=== PATIENT | male | born 1935 | race Caucasian/White ===

== ENCOUNTER → 2016-05-23 | Outpatient (CLI) | payer MEDICARE ==
[2016-05-23 13:44] LABS: HEMATOCRIT 42.6 % (37.9-51.0); HEMOGLOBIN 14.3 g/dL (13.5-17.0); HGB HCT DIFFERENCE 0.3; MEAN CORPUSCULAR HEMOGLOBIN 31.7 pg (27.0-33.4); MEAN CORPUSCULAR HGB CONC 33.6 g/dL (32.0-36.0); MEAN CORPUSCULAR VOLUME 94 fl (80-97); RED BLOOD COUNT 4.52 10^6/uL (4.35-5.55); RED CELL DISTRIBUTION WIDTH 14.1 % (11.5-14.0); WHITE BLOOD COUNT 7.1 10^3/uL (4.0-10.5)
[2016-05-23 14:03] LABS: ANION GAP 13 (5-19); BLOOD UREA NITROGEN 24 mg/dL (7-20); CALCIUM 9.7 mg/dL (8.4-10.2); CARBON DIOXIDE 24 mmol/L (22-30); CHLORIDE 103 mmol/L (98-107); GLUCOSE 138 mg/dL (75-110); SODIUM 140.1 mmol/L (137-145)
--- NOTE | 2016-05-23 16:56 | EKG REPORT ---
SEVERITY:- NORMAL ECG - SINUS RHYTHM : Confirmed by: Niurka Zuniga MD 23-May-2016 16:55:58
[2016-05-26 08:48] LABS: APPEARANCE,URINE CLEAR; BILIRUBIN,URINE NEGATIVE (NEGATIVE); GLUCOSE, URINE NEGATIVE (NEGATIVE); KETONES,URINE NEGATIVE (NEGATIVE); LEUKOCYTE ESTERASE,URINE NEGATIVE (NEGATIVE); NITRITE,URINE NEGATIVE (NEGATIVE); PROTEIN,URINE NEGATIVE (NEGATIVE); URINE SPECIFIC GRAVITY 1.009; UROBILINOGEN,URINE NEGATIVE mg/dL (<2.0)
== END ==
LOC: OD 12:48
PROVIDERS: ATTEND Orthopaedic Surgery
DX: Z01.810 Encounter for preprocedural cardiovascular examination (principal); Z01.811 Encounter for preprocedural respiratory examination; Z01.818 Encounter for other preprocedural examination; Z79.899 Other long term (current) drug therapy; M17.12 Unilateral primary osteoarthritis, left knee
CPT/HCPCS: 36415; 71020; 80048; 81001; 85027; 93005; 93010

== ENCOUNTER 2017-11-07 11:54 | Inpatient (IN) | payer OTHER, MEDICARE ==
[2017-11-07 12:15] LABS: ABSOLUTE LYMPHOCYTES (AUTO) 0.5 10^3/uL (0.5-4.7); ABSOLUTE MONOCYTES (AUTO) 0.8 10^3/uL (0.1-1.4); ABSOLUTE NEUT (AUTO) 7.9 10^3/uL (1.7-8.2); BASOPHILS % (AUTO) 0.3 % (0-2); EOSINOPHILS % (AUTO) 0.2 % (0-6); HEMOGLOBIN 13.3 g/dL (13.5-17.0); LYMPHOCYTES % (AUTO) 5.6 % (13-45); MEAN CORPUSCULAR HGB CONC 33.3 g/dL (32.0-36.0); MEAN CORPUSCULAR VOLUME 96 fl (80-97); PLATELET COUNT 156 10^3/uL (150-450); RED BLOOD COUNT 4.16 10^6/uL (4.35-5.55); RED CELL DISTRIBUTION WIDTH 14.6 % (11.5-14.0); SEGMENTED NEUTROPHILS % (AUTO) 84.9 % (42-78); TOTAL CELLS COUNTED % (AUTO) 100 %; WHITE BLOOD COUNT 9.4 10^3/uL (4.0-10.5)
--- NOTE | 2017-11-07 12:20 | EKG REPORT ---
SEVERITY:- OTHERWISE NORMAL ECG - SINUS RHYTHM ATRIAL PREMATURE COMPLEX : Confirmed by: Niurka Zuniga MD 07-Nov-2017 12:19:30
[2017-11-07 12:56] LABS: TROPONIN I 0.163 ng/mL
[2017-11-07 13:22] LABS: VENOUS BLOOD BASE EXCESS 0.8 mmol/L; VENOUS BLOOD HCO3 25.2 mmol/L (20-32); VENOUS BLOOD PCO2 39.7 mmHg (35-63); VENOUS BLOOD PH 7.42 (7.30-7.42)
[2017-11-07 13:35] LABS: ALANINE AMINOTRANSFERASE 26 U/L (21-72); ALBUMIN 3.4 g/dL (3.5-5.0); ALKALINE PHOSPHATASE 36 U/L (38-126); ANION GAP 11 (5-19); ASPARTATE AMINO TRANSFERASE 27 U/L (17-59); BILIRUBIN,DIRECT 0.3 mg/dL (0.0-0.4); BILIRUBIN,TOTAL 1.1 mg/dL (0.2-1.3); BLOOD UREA NITROGEN 18 mg/dL (7-20); CALCIUM 8.8 mg/dL (8.4-10.2); CARBON DIOXIDE 24 mmol/L (22-30); CHLORIDE 110 mmol/L (98-107); GLUCOSE 137 mg/dL (75-110); POTASSIUM 3.8 mmol/L (3.6-5.0); SODIUM 144.9 mmol/L (137-145); TOTAL PROTEIN 6.3 g/dL (6.3-8.2)
--- NOTE | 2017-11-07 13:38 | RADIOLOGY REPORT (SQ) ---
EXAM DESCRIPTION: CHEST SINGLE VIEW COMPLETED DATE/TIME: 11/07/2017 1:27 pm REASON FOR STUDY: S OB, Hx asbestosis COMPARISON: 05/23/2016 NUMBER OF VIEWS: One view. TECHNIQUE: Single frontal radiographic view of the chest acquired. LIMITATIONS: None. FINDINGS: LUNGS AND PLEURA: Calcified pleural plaques. No pleural effusion. Attenuated blood vessels and flattened krysta-diaphragms. MEDIASTINUM AND HILAR STRUCTURES: No masses. Contour normal. HEART AND VASCULAR STRUCTURES: Heart normal in size. Normal vasculature. BONES: No acute findings. HARDWARE: None in the chest. OTHER: No other significant finding. IMPRESSION: COPD. NO ACUTE RADIOGRAPHIC FINDING IN THE CHEST. TECHNICAL DOCUMENTATION: JOB ID: [id number] [employer]- All Rights Reserved Reading location - IP/workstation name: [email or web address]
--- NOTE | 2017-11-07 16:51 | ER Document Report ---
ED General - General Chief Complaint: Shortness Of Breath Stated Complaint: SHORTNESS OF BREATH Time Seen by Provider: 11/07/17 12:27 Notes: Patient says that he is having shortness of breath and feeling like he cannot breathe starting yesterday and lasting through the night last night. He has had a slight cough. Is not producing any significant phlegm. Has not had any fever. Patient has a history of asbestosis and is followed at the [facility] for this condition. He is on handheld inhalers but he is not on any home oxygen. Denies any chest pains. Has never had any heart disease other than being told that he has a heart murmur. 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 TRAVEL OUTSIDE OF THE [place] IN LAST 30 DAYS: No - Related Data Allergies/Adverse Reactions: Penicillins Allergy (Verified 11/06/11 12:11) pravastatin [Pravastatin] Allergy (Verified 11/06/11 17:35) Past Medical History - Social History Smoking Status: Unknown if Ever Smoked Family History: Reviewed & Not Pertinent Patient has suicidal ideation: No Patient has homicidal ideation: No - Past Medical History Cardiac Medical History: Reports: Hx Hypercholesterolemia, Hx Hypertension Pulmonary Medical History: Reports: Hx Asthma, Other - Asbestosis Denies: Hx COPD, Hx Tuberculosis Endocrine Medical History: Denies: Hx Diabetes Mellitus Type 1, Hx Diabetes Mellitus Type 2 Musculoskeletal Medical History: Reports Hx Arthritis Psychiatric Medical History: Denies: Hx Anxiety Past Surgical History: Denies: Hx Pacemaker - Immunizations Hx Pneumococcal Vaccination: 11/28/10 Review of Systems - Review of Systems Notes: REVIEW OF SYSTEMS: CONSTITUTIONAL : Denies fever. Vital signs are all normal. Anxious. EENT: Denies eye, ear, nose or mouth or throat pain or other symptoms. CARDIOVASCULAR: Denies chest pain. No thoracic pain anywhere. RESPIRATORY: See HPI. GASTROINTESTINAL: Denies abdominal pain or nausea, vomiting, or diarrhea. GENITOURINARY: Denies difficulty or painful urinating, urinary frequency, blood in urine. MUSCULOSKELETAL: Denies back or neck pain. Denies joint pain or swelling. SKIN: Denies rash or skin lesions. NEUROLOGICAL: Denies LOC or altered mental status. Denies headache. Denies sensory loss or motor deficits. ALL OTHER SYSTEMS REVIEWED AND NEGATIVE. Physical Exam - Vital signs Vitals: Resp Pulse Ox 19 98 11/07/17 12:00 11/07/17 12:00 Interpretation: Normal. No: Hypoxic, Tachypneic - Notes Notes: PHYSICAL EXAMINATION: GENERAL: Well-appearing, in no acute distress. Anxious. O2 sat on room air is 95%. HEAD: Atraumatic, normocephalic. EYES: Pupils equal round and reactive to light, extraocular movements intact. ENT: oropharynx clear without exudates. Moist mucous membranes. NECK: Normal range of motion, supple. LUNGS: Breath sounds clear and equal bilaterally. No significant wheezes. Good air exchange. HEART: Regular rate and rhythm without murmurs. No chest wall tenderness. ABDOMEN: Soft, nontender. No guarding or rebound. No masses. BACK: No tenderness throughout entire back. EXTREMITIES: Normal range of motion without pain. No swelling of either lower leg. Negative Homans bilaterally. NEUROLOGICAL: Normal speech, normal gait. Normal sensory, motor, and reflex exams. Awake, alert, and oriented x3. Cranial nerves normal. PSYCH: Anxious. SKIN: Warm, dry, no rashes. Course - Re-evaluation Re-evalutation: 11/07/17 18:48 Patient's first troponin was minimally elevated at 0.16, and I repeated this in about 3 hours and it was slightly more increased, at 0.723. Discussed the case with the hospitalist on and also with Dr. Zuniga, asphalt surface heater operator on, and Dr. Goldstein recommended a CTA. He felt the patient could be observed here. CTA shows small bilateral basilar pleural effusions and some calcifications of the pleura bilaterally. 11/07/17 19:59 Discussed with hospitalist process improvement consultant for the night who agreed to admit the patient for observation to telemetry. - Vital Signs Vital signs: Temp Pulse Resp BP Pulse Ox 97.9 F 103 H 26 H 127/97 H 96 11/07/17 12:07 11/07/17 12:07 11/07/17 19:01 11/07/17 19:01 11/07/17 19:01 - Laboratory Result Diagrams: 11/07/17 11:22 11/07/17 11:22 Laboratory results interpreted by me: 11/07/17 11/07/17 11/07/17 11:22 11:22 11:22 RBC 4.16 L Hgb 13.3 L RDW 14.6 H Seg Neutrophils % 84.9 H Lymphocytes % 5.6 L Chloride 110 H Glucose 137 H Alkaline Phosphatase 36 L NT-Pro-B Natriuret Pep 2850 H Albumin 3.4 L - Diagnostic Test Radiology results interpreted by me: 11/07/17 18:50 No acute findings on chest x-ray. - EKG Interpretation by Me EKG shows normal: Sinus rhythm Rate: Normal Rhythm: NSR, APC's Discharge - Discharge Clinical Impression: Pulmonary asbestosis, Dyspnea, Elevated troponin, Pleural effusion Condition: Stable Disposition: ADMITTED OBSERVATION Admitting Provider: Hospitalist Unit Admitted: Telemetry Referrals: YISEL HOLLINGSWORTH MD [Primary Care Provider] - Follow up as needed
--- NOTE | 2017-11-07 19:03 | RADIOLOGY REPORT (SQ) ---
EXAM DESCRIPTION: CTA CHEST COMPLETED DATE/TIME: 11/07/2017 6:24 pm REASON FOR STUDY: Difficulty breathing,shortness of breath, Hx Dvt COMPARISON: CT angiogram chest 11/09/2011. Chest x-ray 11/07/2017. TECHNIQUE: CT scan of the chest performed using helical scanning technique with dynamic intravenous contrast injection. Images reviewed with lung, soft tissue and bone windows. Reconstructed coronal and sagittal MPR images reviewed. Additional 3 dimensional post-processing performed to develop Maximal Intensity Projection images (NE P). All images stored on PACS. All CT scanners at this facility use dose modulation, iterative reconstruction, and/or weight based d osing when appropriate to reduce radiation dose to as low as reasonably achievable (ALARA). [facility]: Dose Right [facility]: CareDose [facility]: Dose Right [facility]: Teradose 4D [facility]: [employer] CONTRAST TYPE AND DOSE: contrast/concentration: Isovue 350.00 mg/ml; Total Contrast Delivered: 75.0 ml; Total Saline Delivered: 80.0 ml Contrast bolus optimized for the pulmonary arteries. Not diagnostic for the aorta. RENAL FUNCTION: Creatinine 0.89 RADIATION DOSE: CT Rad equipment meets quality standard of care and radiation dose reduction techniq ues were employed. CTDIvol: 15.7 - 16.5 mGy. DLP: 581 mGy-cm. . LIMITATIONS: None. FINDINGS: LUNGS AND PLEURA: There are small bilateral pleural effusions with mild bibasilar atelecta sis. There is bilateral calcified pleural plaque. No pneumothorax. AORTA AND GREAT VESSELS: No thoracic aortic aneurysm. Contrast bolus not optimized for the aorta. HEART: No pericardial effusion. Moderate to marked coronary artery calcifications. PULMONARY ARTERIES: No emboli visualized in the main pulmonary arteries or the segmental branches. HILAR AND MEDIASTINAL STRUCTURES: No identified masses or abnormal nodes. HARDWARE: None in the chest. UPPER ABDOMEN: No significant findings. Limited exam. THYROID AND OTHER SOFT TISSUES: The visualized thyroid gland is unremarkable. BONES: Multilevel degenerative changes at the spine. 3D MIPS: Confirm above findings. IMPRESSION: 1. No pulmonary emboli. 2. Small bilateral pleural effusions with mild bibasilar atelectasis. Bilateral pleural calcificatio ns. 3. Coronary arteries calcifications. COMMENT: Quality ID # [id number]: Final reports with documentation of one or more dose reduction techniques (e.g., Automated exposure control, adjustment of the mA and/or kV according to patient size, use of iterative reconstruction technique) TECHNICAL DOCUMENTATION: JOB ID: [id number] [employer]- All Rights Reserved Reading location - IP/workstation name: [email or web address]
[2017-11-07] MEDS ORDERED: FUROSEMIDE INJ/PF 40 MG/4 ML SDV IV ONE (19:58)
[2017-11-07] MEDS ORDERED: IPRATROPIUM/ALBUTEROL 0.5-2.5 MG/3 ML AMPUL NEB ONE (20:36)
--- NOTE | 2017-11-07 21:09 | EKG REPORT ---
SEVERITY:- BORDERLINE ECG - SINUS RHYTHM ATRIAL PREMATURE COMPLEX BORDERLINE T ABNORMALITIES, INFERIOR LEADS : Confirmed by: Niurka Zuniga MD 07-Nov-2017 21:08:47
[2017-11-07] MEDS ORDERED: IPRATROPIUM/ALBUTEROL 0.5-2.5 MG/3 ML AMPUL NEB PRN (23:43)
[2017-11-07] MEDS ORDERED: ENOXAPARIN SODIUM INJ 80 MG/0.8 ML DISP.SYRIN SUBCUT ONE (23:45)
[2017-11-08] MEDS: METHYLPREDNISOLONE INJ 40 MG/1 ML SDV IV SCH ×3 (01:13→17:16)
--- NOTE | 2017-11-08 01:37 | PDOC H&P ---
History of Present Illness Admission Date/PCP: 11/07/17 20:16 YISEL HOLLINGSWORTH MD Patient complains of: SOB History of Present Illness: TERESA MUNOZ is a 81 year old male entering to the emergency department secondary to shortness of breath. Patient has a known past medical history of asbestosis with chronic emphysema for which she follows with a software controls engineer in [place], last seen 2 months ago. States he has been having increased worsening of his shortness of breath over the past 2 days and has been needing to use his inhaler more frequently than usual. States he feels better with rest. Denies worsening of shortness of breath when lying flat. Denies history of smoking. He becomes dyspneic with minimal exertion. Chest pain, denies palpitations. Past Medical History Cardiac Medical History: Reports: DVT, Hyperlipidema, Hypertension Pulmonary Medical History: Reports: Asthma, Other - Asbestosis Denies: Chronic Obstructive Pulmonary Disease (COPD), Tuberculosis Pulmonary History Note: Emphysema from hx of asbestosis Endocrine Medical History: Denies: Diabetes Mellitus Type 1, Diabetes Mellitus Type 2 Musculoskeltal Medical History: Reports: Arthritis Psychiatric Medical History: Denies: Depression Past Surgical History Past Surgical History: Denies: Pacemaker Social History Smoking Status: Never Smoker Frequency of Alcohol Use: None Hx Recreational Drug Use: No Hx Prescription Drug Abuse: No - Advance Directive Resuscitation Status: Full Code Family History Family History: Reviewed & Not Pertinent Parental Family History Reviewed: Yes Children Family History Reviewed: Yes Sibling(s) Family History Reviewed.: Yes Medication/Allergy Home Medications: Lisinopril [Prinivil 40 mg Tablet] 40 mg PO DAILY 11/06/11 Docusate Sodium [Colace 100 mg Capsule] 100 mg PO BID 11/07/11 Enoxaparin Sodium [Lovenox Inj 100 Mg/1 Ml Disp.Syrin] 85 mg SUBCUT Q12 Warfarin Sodium [Coumadin] 10 mg PO QHS 11/07/11 Allergies/Adverse Reactions: Penicillins Allergy (Verified 11/06/11 12:11) pravastatin [Pravastatin] Allergy (Verified 11/06/11 17:35) Review of Systems Constitutional: ABSENT: chills, fever(s), weakness Cardiovascular: PRESENT: dyspnea on exertion. ABSENT: chest pain, edema, palpitations Respiratory: PRESENT: dyspnea. ABSENT: cough, hemoptysis, sputum Gastrointestinal: ABSENT: abdominal pain, nausea, vomiting Physical Exam Vital Signs: Temp Pulse Resp BP Pulse Ox 98.8 F 89 20 134/78 H 97 11/07/17 23:10 11/07/17 23:10 11/07/17 23:10 11/07/17 23:10 11/08/17 00:05 Pulse Oximeter Continuous Start: 11/07/17 19: 59 Freq: RTQ4 Status: Active Document 11/08/17 00:05 EST (Rec: 11/08/17 00:06 EST [email or web address]) Pulse Oximetry Assessment Oxygen Saturation (92-100) 97 Oxygen Flow Rate (L/min) 2 Oxygen Delivery Method Nasal Cannula Fraction of Inspired Oxygen (FIO2) 28 Equipment Usage Initial Set Up Continuous Pulse Oximeter 24 Hour Charge Charge Now Continuous SpO2 Machine # 11 General appearance: PRESENT: mild distress Head exam: PRESENT: atraumatic Eye exam: PRESENT: conjunctiva pink, EOMI, PERRLA Ear exam: PRESENT: normal external ear exam Mouth exam: PRESENT: moist, neck supple, tongue midline Neck exam: PRESENT: full ROM Respiratory exam: PRESENT: decreased breath sounds, tachypnea, wheezes Cardiovascular exam: PRESENT: systolic murmur GI/Abdominal exam: PRESENT: normal bowel sounds, soft. ABSENT: distended, tenderness Rectal exam: PRESENT: deferred Neurological exam: PRESENT: alert, oriented to person, oriented to place, oriented to time, CN II-XII grossly intact, normal gait Psychiatric exam: PRESENT: anxious. ABSENT: suicidal ideation Skin exam: PRESENT: normal color Results Laboratory Results: 11/07/17 22:10 Troponin I 1.580 Impressions: Chest X-Ray 11/07/17 12:28 IMPRESSION: COPD. NO ACUTE RADIOGRAPHIC FINDING IN THE CHEST. Chest/Abdomen CTA 11/07/17 17:14 IMPRESSION: 1. No pulmonary emboli. 2. Small bilateral pleural effusions with mild bibasilar atelectasis. Bilateral pleural calcifications. 3. Coronary arteries calcifications. Assessment & Plan - Diagnosis (1) Dyspnea Qualifiers: Dyspnea type: dyspnea on exertion Qualified Code(s): R06.09 - Other forms of dyspnea Is this a current diagnosis for this admission?: Yes Plan: Patient to be admitted to med/tele for further monitoring. Continuous pulse ox. Solumedrol 40mg IV q6h to be started overnight. Duonebs q4h PRN. Maintain oxygen saturation > 92% (2) Elevated troponin Is this a current diagnosis for this admission?: Yes Plan: Patient denies chest pain. EKG without acute ischemic changes. Will continue to monitor closely with telemetry. Cardiology consultation pending for this am. Will continue to trend q6h x 3 or until wnl. Lovenox 1mg/kg BID started at this time. (3) Pleural effusion Is this a current diagnosis for this admission?: Yes Plan: Acute, bilateral as noted on CTA chest. Patient started on lasix 40mg IV BID at this time. Will continue to monitor I/O's closely. probably CHF exa associated with underlying effusions. BNP 2800+. (4) Pulmonary asbestosis Is this a current diagnosis for this admission?: Yes Plan: continue to maintain O2 sats greater than 92%. Duonebs q4h prn.
[2017-11-08] MEDS: FUROSEMIDE INJ/PF 40 MG/4 ML SDV IV SCH ×2 (05:21→17:16)
[2017-11-08 05:26] LABS: ABSOLUTE LYMPHOCYTES (AUTO) 0.4 10^3/uL (0.5-4.7); ABSOLUTE MONOCYTES (AUTO) 0.3 10^3/uL (0.1-1.4); BASOPHILS % (AUTO) 0.2 % (0-2); EOSINOPHILS % (AUTO) 0.5 % (0-6); HEMATOCRIT 38.1 % (37.9-51.0); HEMOGLOBIN 12.9 g/dL (13.5-17.0); LYMPHOCYTES % (AUTO) 5.5 % (13-45); MEAN CORPUSCULAR HEMOGLOBIN 32.1 pg (27.0-33.4); MEAN CORPUSCULAR HGB CONC 33.9 g/dL (32.0-36.0); MEAN CORPUSCULAR VOLUME 95 fl (80-97); MONOCYTES % (AUTO) 4.2 % (3-13); PLATELET COUNT 135 10^3/uL (150-450); RED BLOOD COUNT 4.02 10^6/uL (4.35-5.55); RED CELL DISTRIBUTION WIDTH 14.2 % (11.5-14.0); SEGMENTED NEUTROPHILS % (AUTO) 89.6 % (42-78); TOTAL CELLS COUNTED % (AUTO) 100 %; WHITE BLOOD COUNT 7.8 10^3/uL (4.0-10.5)
[2017-11-08 06:06] LABS: ANION GAP 12 (5-19); BLOOD UREA NITROGEN 15 mg/dL (7-20); CALCIUM 9.3 mg/dL (8.4-10.2); CARBON DIOXIDE 28 mmol/L (22-30); CHLORIDE 104 mmol/L (98-107); GLUCOSE 118 mg/dL (75-110); SODIUM 144.1 mmol/L (137-145)
[2017-11-08] MEDS: ASPIRIN 81 MG TABLET, ENT COATED PO SCH (09:11)
[2017-11-08] MEDS ORDERED: ENOXAPARIN SODIUM INJ 40 MG/0.4 ML DISP.SYRIN SUBCUT SCH (10:00)
--- NOTE | 2017-11-08 13:59 | PDOC PROGRESS REPORT ---
Subjective Progress Note for:: 11/08/17 Subjective:: This patient presents emergency room with complaints of shortness of breath and difficulty breathing. He has a known history of asbestosis with chronic emphysema. He states he feels better this morning and is been up and around with some dyspnea but currently off oxygen when I saw him. He denies any chest pain although he was found to have an elevated troponin. Reason For Visit: HEART FAILURE, ELEVATED TROPONIN Physical Exam Vital Signs: Temp Pulse Resp BP Pulse Ox 97.6 F 73 18 122/81 94 11/08/17 07:31 11/08/17 08:10 11/08/17 08:10 11/08/17 07:31 11/08/17 11:49 Pulse Oximeter Continuous Start: 11/07/17 19: 59 Freq: RTQ4 Status: Active Document 11/08/17 11:49 HCR (Rec: 11/08/17 11:49 HCR [id number]) Pulse Oximetry Assessment Oxygen Saturation (92-100) 94 Oxygen Delivery Method Room Air Fraction of Inspired Oxygen (FIO2) 21 Equipment Usage Equipment in Use Continuous SpO2 Machine # 11 Intake & Output 11/07/17 11/08/17 11/09/17 06:59 06:59 06:59 Intake Total 674 Output Total 1275 1100 Balance -1275 -426 Weight 73.7 kg General appearance: PRESENT: no acute distress, well-nourished Head exam: PRESENT: normocephalic Eye exam: PRESENT: conjunctiva pink, EOMI, PERRLA. ABSENT: scleral icterus Mouth exam: PRESENT: moist, tongue midline Neck exam: ABSENT: carotid bruit, JVD, lymphadenopathy, thyromegaly Respiratory exam: PRESENT: decreased breath sounds. ABSENT: rales, rhonchi, wheezes Cardiovascular exam: PRESENT: RRR. ABSENT: diastolic murmur, rubs, systolic murmur Pulses: PRESENT: normal dorsalis pedis pul Vascular exam: PRESENT: normal capillary refill GI/Abdominal exam: PRESENT: normal bowel sounds, soft. ABSENT: distended, guarding, mass, organolmegaly, rebound, tenderness Rectal exam: PRESENT: deferred Extremities exam: PRESENT: full ROM. ABSENT: calf tenderness, clubbing, pedal edema Neurological exam: PRESENT: alert, awake, oriented to person, oriented to place , oriented to time, oriented to situation, CN II-XII grossly intact. ABSENT: motor sensory deficit Psychiatric exam: PRESENT: appropriate affect, normal mood. ABSENT: homicidal ideation, suicidal ideation Skin exam: PRESENT: dry, intact, warm. ABSENT: cyanosis, rash Results Laboratory Results: 11/08/17 04:29 11/08/17 04:29 11/08/17 11/08/17 11/08/17 04:29 04:29 09:59 WBC 7.8 RBC 4.02 L Hgb 12.9 L Hct 38.1 MCV 95 MCH 32.1 MCHC 33.9 RDW 14.2 H Plt Count 135 L Seg Neutrophils % 89.6 H Lymphocytes % 5.5 L Monocytes % 4.2 Eosinophils % 0.5 Basophils % 0.2 Absolute Neutrophils 7.0 Absolute Lymphocytes 0.4 L Absolute Monocytes 0.3 Absolute Eosinophils 0.0 Absolute Basophils 0.0 Sodium 144.1 Potassium 4.0 Chloride 104 Carbon Dioxide 28 Anion Gap 12 BUN 15 Creatinine 0.92 Est GFR ( Amer) > 60 Est GFR (Non-Af Amer) > 60 Glucose 118 H Calcium 9.3 Magnesium 2.0 C-Reactive Protein 38.8 H 11/07/17 11/08/17 11/08/17 22:10 04:29 09:59 Troponin I 1.580 1.940 1.350 Impressions: Chest X-Ray 11/07/17 12:28 IMPRESSION: COPD. NO ACUTE RADIOGRAPHIC FINDING IN THE CHEST. Chest/Abdomen CTA 11/07/17 17:14 IMPRESSION: 1. No pulmonary emboli. 2. Small bilateral pleural effusions with mild bibasilar atelectasis. Bilateral pleural calcifications. 3. Coronary arteries calcifications. Assessment & Plan - Time Time Spent with patient: 15-24 minutes Medications reviewed and adjusted accordingly: Yes Anticipated discharge: Home Within: within 72 hours - Inpatient Certification Based on my medical assessment, after consideration of the patient's comorbidities, presenting symptoms, or acuity I expect that the services needed warrant INPATIENT care.: Yes Medical Necessity: Need for Nebulizer Therapy and Monitoring of Response, Risk of Complication if Not Cared For in Hospital - Plan Summary Plan Summary: Acute hypoxemic respiratory failure probably multifactorial including underlying chronic lung disease, and pleural effusion. Patient is currently on Solu-Medrol as well as bronchodilators. 2. Elevated troponin cardiology consultation has been requested 3. Pleural effusion, bilateral questionable etiology. Will follow up on echocardiogram. Patient may need thoracentesis however the small bilateral pleural effusions may just respond to Lasix 4. Chronic lung disease with pulmonary asbestosis
--- NOTE | 2017-11-08 15:49 | XCELERA REPORT ---
[address] [address] Transthoracic Echocardiogram Report Name: TERESA MUNOZ Age: 81 yrs Gender: Male : 1935 Patient Status: Inpatient Patient Location: [address] [place], [place] [address] Study Date: 11/08/2017 01:41 PM Height: 65 in Weight: 162 lb BSA: 1.8 m2 Procedure: A two-dimensional transthoracic echocardiogram with color flow Doppler was performed. The study was technically difficult with many images being suboptimal in quality. The study was technically limited with all images being suboptimal in quality. 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 Ordering Physician: NIURKA WEBB Performed By: Josefina Miles Interpretation Summary The left ventricle is normal in size. LV EF is 60% Left ventricular systolic function is normal. Doppler measurements suggest impaired left ventricular relaxation, which is associated with grade I/IV or mild diastolic dysfunction The left ventricular wall motion is normal. There is no thrombus. Probably normal LV size. The right atrium is normal. The left atrial size is normal. There is no evidence of mitral valve prolapse. There is mild mitral stenosis There is a mild amount of mitral regurgitation There is moderate to severe aortic stenosis There is a peak gradient of 69 mm of Hg and mean gradient of 41 mm of Hg. No aortic regurgitation is present. There is no tricuspid stenosis. There is a trace amount of tricuspid regurgitation There is mild pulmonary hypertension by echo RVSP is 41 to 46 mm of Hg , with RA mean of 5 to 10. There is no pulmonic valvular stenosis. There is no pulmonic valvular regurgitation. There is no pericardial effusion. The deptal movement and the medial e' ve;locity of 5 m/sec and MV inflow dopplers do not support constrictive pericarditis.No good view of hepatic vein flow.May need a right heart cath.Also due to suboptimal echo qaulity cannot comment on pericardial thickening or calcification. MMode/2D Measurements & Calculations RVDd: 2.8 cm LVIDd: 4.1 cm FS: 29.0 % Ao root diam: 3.1 cm IVSd: 0.89 cm LVIDs: 2.9 cm EDV(Teich): 75.1 mlAo root area: LVPWd: 0.86 cm ESV(Teich): 32.9 ml7.4 cm2 EF(Teich): 56.2 % LA dimension: 4.0 cm LVOT diam: 2.1 cm LVLd ap4: 9.3 cm SV(MOD-sp4): LVOT area: EDV(MOD-sp4): 55.0 ml 94.0 ml 3.6 cm2 LVLs ap4: 7.5 cm ESV(MOD-sp4): 39.0 ml EF(MOD-sp4): 58.5 % Doppler Measurements & Calculations MV E max serenity: MV P1/2t max serenity: Ao V2 max: LV V1 max P.0 cm/sec 74.5 cm/sec 415.3 cm/sec 9.4 mmHg MV A max serenity: MV P1/2t: 121.6 msec Ao max PG: LV V1 mean P.3 cm/sec MVA(P1/2t): 1.8 cm2 69.1 mmHg 5.0 mmHg MV E/A: 0.82 MV dec slope: Ao V2 mean: LV V1 max: 275.8 cm/sec 153.6 cm/sec 179.5 cm/sec2 Ao mean PG: LV V1 mean: MV dec time: 0.38 sec 37.0 mmHg 102.0 cm/sec Ao V2 VTI: 86.3 cmLV V1 VTI: 32.3 cm ANDREI(I,D): 1.3 cm2 ANDREI(V,D): 1.3 cm2 SV(LVOT): 114.7 mlPA V2 max: TR max serenity: MV P1/2t-pr_phl: 142.6 cm/sec 301.6 cm/sec 121.6 msec PA max P.1 mmHg TR max P.4 mmHg Left Ventricle The left ventricle is normal in size. There is normal left ventricular wall thickness. LV EF is 60%. Left ventricular systolic function is normal. Doppler measurements suggest impaired left ventricular relaxation, which is associated with grade I/IV or mild diastolic dysfunction. The left ventricular wall motion is normal. There is no thrombus. Right Ventricle The right ventricle is not well visualized secondary to technical limitations. Probably normal LV size. Atria The right atrium is normal. The left atrial size is normal. Mitral Valve There is mild mitral annular calcification. There is no evidence of mitral valve prolapse. There is no vegetation seen on the mitral valve. There is mild mitral stenosis. There is a mild amount of mitral regurgitation. Aortic Valve There is no aortic valvular vegetation. There is moderate to severe aortic stenosis. There is a peak gradient of 69 mm of Hg and mean gradient of 41 mm of Hg. There is no LVOT obstruction. No aortic regurgitation is present. Tricuspid Valve There is no tricuspid stenosis. There is a trace amount of tricuspid regurgitation. There is mild pulmonary hypertension by echo. RVSP is 41 to 46 mm of Hg , with RA mean of 5 to 10. Pulmonic Valve There is no pulmonic valvular stenosis. There is no pulmonic valvular regurgitation. Great Vessels The aortic root is not well visualized. Effusions There is no pericardial effusion. The deptal movement and the medial e' ve;locity of 5 m/sec and MV inflow dopplers do not support constrictive pericarditis.No good view of hepatic vein flow.May need a right heart cath.Also due to suboptimal echo qaulity cannot comment on pericardial thickening or calcification. : NIURKA WEBB > Niurka Webb
[2017-11-08] MEDS ORDERED: ENOXAPARIN SODIUM INJ 80 MG/0.8 ML DISP.SYRIN SUBCUT SCH (22:00)
[2017-11-09] MEDS: METHYLPREDNISOLONE INJ 40 MG/1 ML SDV IV SCH ×3 (03:05→22:26)
[2017-11-09 05:34] LABS: INTERNATIONAL RATION (INR) 1.07; PROTHROMBIN TIME 14.5 SEC (11.4-15.4)
[2017-11-09 05:51] LABS: ALANINE AMINOTRANSFERASE 34 U/L (21-72); ALBUMIN 4.1 g/dL (3.5-5.0); ALKALINE PHOSPHATASE 49 U/L (38-126); ASPARTATE AMINO TRANSFERASE 35 U/L (17-59); BILIRUBIN,DIRECT 0.3 mg/dL (0.0-0.4); BILIRUBIN,TOTAL 1.2 mg/dL (0.2-1.3); TOTAL PROTEIN 6.8 g/dL (6.3-8.2); TRIGLYCERIDES 61 mg/dL (<150)
[2017-11-09 06:02] LABS: DIRECT LDL 107 mg/dL (<100)
[2017-11-09] MEDS: AMLODIPINE BESYLATE 2.5 MG TABLET PO SCH ×2 (09:22→22:26)
[2017-11-09] MEDS: ASPIRIN 81 MG TABLET, ENT COATED PO SCH (09:22)
--- NOTE | 2017-11-09 12:52 | EKG REPORT ---
SEVERITY:- NORMAL ECG - SINUS RHYTHM : Confirmed by: Ian Garcia MD 09-Nov-2017 12:51:32
--- NOTE | 2017-11-09 14:28 | CONSULTATION REPORT E ---
Consultation Report NAME: TERESA MUNOZ : 1935 AGE: 81Y DATE: 11/08/2017 305 A TO: STEPHANIE WEBB M.D. FROM: RAFAELA FARRIS M.D. Requesting Physician REASON FOR CONSULTATION: Patient with increasing shortness of breath and elevated troponin I consistent with non-ST elevation AZ. HISTORY OF PRESENT ILLNESS: The patient is an 81-year-old male with known history of hypertension, hyperlipidemia, past history of DVT and pulmonary emboli, who states he also was diagnosed with asbestosis about 2 years ago and has been having shortness of breath since then, which is his baseline, but the past 2 days, the patient claims that he has been having increasing shortness of breath without any wheezing or cough. The patient denies any chest pain or discomfort. The patient states he had mild leg edema when he came in, but there seems to be no edema now. There is no PND, orthopnea, wheezing, cough, or sputum production. The patient denies any chest pain or discomfort or any chest palpitation. His troponin I is elevated. His EKG shows some minor borderline gait abnormalities of the inferior leads, but no major ischemia. The patient denies any palpitations. There are no TIA or CVA symptoms. Note that the patient is on Coumadin as well as Lovenox for his past history of DVT. PAST MEDICAL HISTORY: Positive for history of hypertension and hyperlipidemia. In November of 2011, the patient had left lower extremity DVT and subsequently had pulmonary emboli and was placed on anticoagulation then, and since then, the patient has been on it. He also claims that he has a problem of the aortic valve, and by description, looks like aortic stenosis, but he does not know the severity of that. He denies any history of diabetes mellitus or thyroid disease. There is no prior history of congestive heart failure. 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 He states due to asbestosis he has had a history of asthma with intermittent wheezing, but none in the recent months. There is no history of TIA or CVA. There is no history of chronic kidney disease. PAST SURGICAL HISTORY: There is no history of prior surgeries. The patient states that he has arthritis and the orthopedic surgeon is hesitant to do surgery on his left knee. FAMILY HISTORY: Positive for hypertension. Negative for coronary artery disease. ALLERGIES: The patient is allergic to PENICILLIN and PRAVASTATIN. DISPOSITION: The patient is a FULL CODE. His daughter is the surrogate healthcare decision maker. MEDICATIONS: 1. Aspirin 81 mg p.o. daily. 2. Lovenox 80 mg subcutaneously daily at bedtime. 3. Lasix 40 mg IV x1 and 40 mg IV q. 12 hours. 4. Ipratropium 3 mL nebulizer treatment x1 and respiratory treatment q. 4 hours p.r.n. 5. Solu-Medrol 40 mg IV q. 8 hours. 6. He was on Coumadin at home, but his INR has not been checked. REVIEW OF SYSTEMS: CONSTITUTIONAL: Denies any fever, chills, or rigors. Complains of minimal fatigue, but no generalized weakness. HEAD: Denies headaches or head injury or dizziness. EYES: No history of amblyopia or diplopia. No history of amaurosis fugax. EARS: No history of hearing loss. No history of tinnitus. No history of recurrent ear infections. NOSE: No history of hay fever. No history of nosebleeds. No history of nasal polyps. MOUTH: No history of altered taste sensation. No ulcers in the mouth. No bleeding from the gums. THROAT: No odynophagia or dysphagia. No history of recurrent sore throats. SKIN: No history of pruritus. No history of yellowish discoloration of the skin. No history of psoriasis. No history of skin cancer. LUNGS: History of asthma present. History of asbestosis. History of shortness of breath with more than mild exertion, but the last 2-3 days, he has been having increasing shortness of breath at rest without any cough or wheezing or sputum production. There is no chest pain. There is no symptoms of upper or lower respiratory tract infection. He has a past history of pulmonary embolism in 2012 after left leg DVT, but no recurrence. He has no history of sleep apnea. No pruritic chest pain. No history of hemoptysis. CARDIAC: History of hypertension. History of hyperlipidemia. The patient states he is intolerant to pravastatin. He states his blood pressure is well controlled on lisinopril. He also states he has a problem of the aortic valve with narrowing of the aortic valve, the extent of which is not known. There is no prior history of congestive heart failure. No palpitations or cardiac arrhythmia. No history of rheumatic fever. No history of congenital heart disease. The patient states that he does have some mild leg edema intermittently and he thought he had some mild edema, but at present, there is no edema seen. There are no chronic changes of DVT. There is no syncope or dizziness. There are no palpitations. There is no history of cardiac arrhythmia. GASTROINTESTINAL: No history of GI bleed. No history of fatty food intolerance. No history of abdominal pain. No history of cirrhosis. No history of jaundice. No history of altered bowel movements. MUSCULOSKELETAL: History of arthritis with no collagen vascular disease. RENAL: Denies any history of chronic kidney disease. No history of hematuria, pyuria, dysuria. No symptoms of enlarged prostate. No symptoms of UTI. CENTRAL NERVOUS SYSTEM: No history of TIA or CVA. No history of seizures, headaches, or migraines. No history of gait imbalance. PSYCHIATRIC: No history of anxiety or depression. No suicidal ideation. No homicidal ideation. VASCULAR: Past history of left lower extremity DVT. No recurrence since 2011, but the patient is on anticoagulation for that. No history of cough or buttock claudication. No history of peripheral vascular disease. No history of peripheral arterial disease. HEMATOLOGICAL: No history of bleeding diathesis. No history of clotting disorders. PHYSICAL EXAMINATION: GENERAL: The patient is well built and well nourished, at present, at rest, does not appear to be short of breath. VITAL SIGNS: He is afebrile with a temperature of 98.1 degrees Fahrenheit, pulse is 77 beats per minute, blood pressure 111/61, respirations are 18 per minute, O2 saturations are 95% on room air. HEAD: Atraumatic, normocephalic. EYES: Pupils are equal, round, regular, reactive to light and accommodation. Extraocular movements are normal. There is no conjunctival pallor. There is no scleral icterus. EARS: Tympanic membranes are intact. External auditory canals are clear. NOSE: There is no deviated nasal septum. There is no inflammation of the nasal mucous membrane. MOUTH: Mucous membranes of the mouth are moist. Tongue is moist. There are no ulcers. There is no bleeding from the gums. THROAT: There is no redness of the oropharynx. There is no exudate. SKIN: There are no skin rashes. There is no petechia or ecchymosis. There are no skin lesions. NECK: Supple. There is no JVD. Carotids are equal. There is no bruit. There is no pulsating jugular vein. There is no lymphadenopathy. There is no goiter. Trachea is central. LUNGS: Diminished air entry, prolonged expiration with few scattered rhonchi. There is no chest wall tenderness. There are no rales or CHF. There is no wheezing. There is diminished air entry with prolonged expiration on auscultation. On percussion, there is hyperresonance. CARDIOVASCULAR: S1 and S2 are heard. There is no S3 gallop. There is no S4 gallop. There is a murmur of aortic stenosis present, A2 is muffled. There is mild carotid delay. There is systolic murmur in the apex without any radiation. There is no rub. ABDOMEN: Soft, nontender. There is no hepatosplenomegaly. There is no pulsatile liver. There is no ascites. Bowel sounds are well heard. There are no tender areas or masses. EXTREMITIES: Femorals are slightly diminished. There are no femoral bruits. Leg pulses are diminished. There is no DVT or cellulitis acutely. There is no cyanosis or clubbing. There is no calf tenderness. CENTRAL NERVOUS SYSTEM: The patient is conscious, awake, alert, oriented x3 with no focal deficits. PSYCHIATRIC: The patient's judgment and insight are intact. His affect is normal. DIAGNOSTIC STUDIES: The patient's initial EKG showed sinus rhythm with atrial premature complex, ,minor nonspecific borderline T abnormalities in the inferior leads. Second EKG is unchanged. There is no major ischemia. The patient's chest x-ray shows calcified pleural plaques, no pleural effusion, attenuated blood vessels, and flattened hemidiaphragm. There is no evidence of congestive heart failure. There is suspicion of pericardial calcification, which is subtle. The patient's chest, abdomen CTA shows no evidence of pulmonary emboli. There are small bilateral pleural effusions with mild basilar atelectasis. There is bilateral calcific pleural plaques. There is no pericardial effusion. There is moderate to mild coronary artery calcification. My interpretation is that the patient has mild pericardiac calcification also. There is no pulmonary emboli. The patient's white count is 7800, hemoglobin is 12.9, hematocrit is 38.1, platelet count is 135,000. The patient's Sed rate is 36. The patient's C-reactive protein is 38.8. The patient's sodium is 144.1, potassium is 4.0, chloride is 104, CO2 is 38. The patient's BUN is 15, creatinine 0.92. GFR is greater than 60. His glucose is 118. His calcium is 9.3. His magnesium is 2.0. His initial troponin I was elevated at 0.723, subsequently went up to 1.580 and peaked at 1.940 and has come down to 1.350. The patient's echocardiogram is a technically difficulty study. The left ventricle systolic function is normal at 60%. Wall motion is normal. There is grade 1/4 mild diastolic dysfunction. There is no LVH. Probably normal wall thickness. There is no thrombus. There is mild amount of mitral regurgitation. There is no mitral valve prolapse. There is bjztrucw-hz-vblgwh aortic stenosis, peak gradient of 69 mmHg and mean gradient of 41 mmHg. There is no tricuspid stenosis. There is trace amount of tricuspid regurgitation. There is mild pulmonary hypertension by echo. Right ventricular systolic pressure is 41-46 mmHg. There is no pulmonic valvular regurgitation. There is no pericardial effusion. Septal movement and the mitral valve lateral E/E, Dopplers do not support constitute pericarditis. No good views of the hepatic vein flow. May need a right heart cath, and also due to the suboptimal echo quality cannot comment on pericarditis or pericardial thickening. IMPRESSION AND RECOMMENDATIONS: 1. Non-ST elevation AZ. The symptoms of shortness of breath are probably Anginal equivalent in the the patient. Recommendation: Continue aspirin. In view of the aortic stenosis, would be very careful with nitrates and hence, since the patient has no anginal symptoms, we will hold off. Continue Lovenox. Will check a PT/INR. 2. Aortic stenosis, moderate to severe, but echocardiogram is not an optimal study and there could be underestimation of the severity of the aortic stenosis. 3. Most likely, the patient's coronary artery disease and moderate to severely calcified coronary arteries, the patient would not tolerate a stress test. Hence, would recommend directly to go to cardiac catheterization to do a right and left heart catheterization to assess the severe aortic stenosis and to see if there is coexisting coronary artery disease. 4. 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 No good echo evidence of this, but the patient may benefit from right heart catheterization to look for evidence of constrictive pericarditis. 5. Hypertension. 6. Hyperlipidemia. 7. Asbestosis. 8. History of asthma/COPD. Would check the patient's PT/INR. Will continue the patient's aspirin. Would stop the patient's Lasix since the patient is not in heart failure. Discussed the option of cardiac catheterization with the patient. Offered the patient to have cardiac catheterization done here in the form of right and left heart catheterization. The patient will first be transferred to [facility]. Will discuss with [facility] since the patient may not be a candidate for open heart surgery for valve replacement if he does not have significant coronary artery disease, in which case he may be a candidate for transaortic valvular replacement of the aortic valve. NOTE: The patient was seen at 11 a.m. A total of 60 minutes spent on this patient with more than 50% of the time spent in direct patient care. His medications have been reviewed and medications adjusted. Will stop the patient's Lasix. Continue the patient's Lovenox and aspirin. The patient needs to be on an SLIME inhibitor. Will start the patient on amlodipine. Discussed with the hospitalist. Will follow with you. NOTE: Medical decision making is of high complexity. DICTATING PHYSICIAN: STEPHANIE WEBB M.D. [id number] PHY#: [id number] ID: [id number] JOB#: [id number] ACCT: [id number] cc:STEPHANIE WEBB M.D. > MTDD
--- NOTE | 2017-11-09 14:58 | PDOC PROGRESS REPORT ---
Subjective Progress Note for:: 11/09/17 Subjective:: Patient was admitted with difficulty breathing and found to have an elevated troponin consistent with a non-ST elevation myocardial infarction. He continues to deny any chest pain. His breathing is better and actually has not required any oxygen. He saw him ambulating with no distress or any difficulties. There is no prior history of CHF. He has a history of asbestosis with asthma although this has been fairly well controlled. Echocardiogram done reveals an ejection fraction of 60% with mild grade 1/4 mile diastolic dysfunction. Patient also has aortic stenosis, Moderate to mild Reason For Visit: HEART FAILURE, ELEVATED TROPONIN Physical Exam Vital Signs: Temp Pulse Resp BP Pulse Ox 97.5 F 70 16 118/65 95 11/09/17 07:06 11/09/17 08:56 11/09/17 08:56 11/09/17 07:06 11/09/17 08:56 Pulse Oximeter Continuous Start: 11/07/17 19: 59 Freq: RTQ4 Status: Complete Document 11/09/17 08:56 HCR (Rec: 11/09/17 09:23 HCR [id number]) Pulse Oximetry Assessment Oxygen Saturation (92-100) 94 Oxygen Delivery Method Room Air Fraction of Inspired Oxygen (FIO2) 21 Equipment Usage Equipment in Use Continuous SpO2 Machine # 11 Intake & Output 11/08/17 11/09/17 11/10/17 06:59 06:59 06:59 Intake Total 1424 Output Total 1275 1700 Balance -1275 -265 Weight 73.7 kg 71.7 kg General appearance: PRESENT: no acute distress, other - Elderly Head exam: PRESENT: atraumatic, normocephalic Eye exam: PRESENT: conjunctiva pink, EOMI, PERRLA. ABSENT: scleral icterus Ear exam: PRESENT: normal external ear exam Mouth exam: PRESENT: moist, tongue midline Neck exam: ABSENT: carotid bruit, JVD, lymphadenopathy, thyromegaly Respiratory exam: PRESENT: clear to auscultation aga, rhonchi - Bilateral bases. ABSENT: wheezes Cardiovascular exam: PRESENT: RRR, +S1, +S2, systolic murmur. ABSENT: diastolic murmur, rubs Pulses: PRESENT: normal dorsalis pedis pul Vascular exam: PRESENT: normal capillary refill GI/Abdominal exam: PRESENT: normal bowel sounds, soft. ABSENT: distended, guarding, mass, organolmegaly, rebound, tenderness Rectal exam: PRESENT: deferred Extremities exam: PRESENT: full ROM. ABSENT: calf tenderness, clubbing, pedal edema Neurological exam: PRESENT: alert, awake, oriented to person, oriented to place , oriented to time, oriented to situation, CN II-XII grossly intact. ABSENT: motor sensory deficit Psychiatric exam: PRESENT: appropriate affect, normal mood. ABSENT: homicidal ideation, suicidal ideation Skin exam: PRESENT: dry, intact, warm. ABSENT: cyanosis, rash Results Laboratory Results: 11/08/17 04:29 11/08/17 04:29 11/09/17 04:06 Total Bilirubin 1.2 AST 35 ALT 34 Alkaline Phosphatase 49 Total Protein 6.8 Albumin 4.1 Triglycerides 61 Cholesterol 222.00 H LDL Cholesterol Direct 107 H VLDL Cholesterol 12.0 HDL Cholesterol 93 11/07/17 11/08/17 11/08/17 22:10 04:29 09:59 Troponin I 1.580 1.940 1.350 11/09/17 09:05 Troponin I 0.739 Impressions: Chest X-Ray 11/07/17 12:28 IMPRESSION: COPD. NO ACUTE RADIOGRAPHIC FINDING IN THE CHEST. Chest/Abdomen CTA 11/07/17 17:14 IMPRESSION: 1. No pulmonary emboli. 2. Small bilateral pleural effusions with mild bibasilar atelectasis. Bilateral pleural calcifications. 3. Coronary arteries calcifications. Assessment & Plan - Time Time Spent with patient: 15-24 minutes Medications reviewed and adjusted accordingly: Yes Anticipated discharge: Home Within: within 48 hours - Inpatient Certification Based on my medical assessment, after consideration of the patient's comorbidities, presenting symptoms, or acuity I expect that the services needed warrant INPATIENT care.: Yes Medical Necessity: Need Close Monitoring Due to Risk of Patient Decompensation, Need For Continuous Telemetry Monitoring, Other - Cardiac catheterization planned - Plan Summary Plan Summary: 1. Acute hypoxemic respiratory failure probably multifactorial including underlying chronic lung disease, and pleural effusion. Patient is currently on Solu-Medrol as well as bronchodilators. His breathing has improved and he has been off BiPAP 2. Elevated troponin -EKG is normal. Plan is for cardiac catheterization in a.m. as per cardiology. Patient is currently on full dose Lovenox 3. Pleural effusion, bilateral questionable etiology. No need for thoracentesis at this time 4. Chronic lung disease with pulmonary asbestosis-stable 5. Moderate aortic stenosis patient will benefit from a cardiac catheterization for further evaluation
[2017-11-09] MEDS ORDERED: ENOXAPARIN SODIUM INJ 80 MG/0.8 ML DISP.SYRIN SUBCUT ONE (18:45)
[2017-11-10] MEDS ORDERED: DIPHENHYDRAMINE HCL 25 MG CAPSULE PO PRN (05:00)
[2017-11-10] MEDS ORDERED: DIAZEPAM 5 MG TABLET PO PRN (05:00)
[2017-11-10 05:45] LABS: ABSOLUTE LYMPHOCYTES (AUTO) 0.4 10^3/uL (0.5-4.7); ABSOLUTE MONOCYTES (AUTO) 0.4 10^3/uL (0.1-1.4); ABSOLUTE NEUT (AUTO) 6.7 10^3/uL (1.7-8.2); BASOPHILS % (AUTO) 0.1 % (0-2); HEMATOCRIT 39.4 % (37.9-51.0); HEMOGLOBIN 13.4 g/dL (13.5-17.0); LYMPHOCYTES % (AUTO) 5.2 % (13-45); MEAN CORPUSCULAR HGB CONC 33.9 g/dL (32.0-36.0); MEAN CORPUSCULAR VOLUME 94 fl (80-97); MONOCYTES % (AUTO) 5.1 % (3-13); PLATELET COUNT 170 10^3/uL (150-450); RED BLOOD COUNT 4.19 10^6/uL (4.35-5.55); SEGMENTED NEUTROPHILS % (AUTO) 89.6 % (42-78); TOTAL CELLS COUNTED % (AUTO) 100 %; WHITE BLOOD COUNT 7.5 10^3/uL (4.0-10.5)
[2017-11-10 05:50] LABS: INTERNATIONAL RATION (INR) 1.07; PROTHROMBIN TIME 14.4 SEC (11.4-15.4)
[2017-11-10] MEDS ORDERED: NORMAL SALINE 1000 ML 1,000 ML IV PRN (06:00)
[2017-11-10 06:04] LABS: ANION GAP 11 (5-19); BLOOD UREA NITROGEN 43 mg/dL (7-20); CALCIUM 8.9 mg/dL (8.4-10.2); CARBON DIOXIDE 27 mmol/L (22-30); CHLORIDE 101 mmol/L (98-107); GLUCOSE 149 mg/dL (75-110); POTASSIUM 4.3 mmol/L (3.6-5.0); SODIUM 139.4 mmol/L (137-145)
[2017-11-10] MEDS ORDERED: HEPARIN SOD (PORCINE) 5,000 UNIT/ML 1 ML SYRINGE SUBCUT PRN (07:09)
[2017-11-10] MEDS ORDERED: ATROPINE SULFATE INJ 1 MG/10 ML DISP.SYRIN IV ONE (07:19)
[2017-11-10] MEDS ORDERED: NALOXONE HCL INJ/PF 0.4 MG/1 ML SDV ONE (07:19)
[2017-11-10] MEDS ORDERED: EPINEPHRINE INJ 1 MG/10 ML DISP.SYRIN ONE (07:19)
[2017-11-10] MEDS ORDERED: FLUMAZENIL INJ 0.5 MG/5 ML VIAL ONE (07:19)
[2017-11-10] MEDS ORDERED: MIDAZOLAM 2 MG/2 ML INJ ONE (07:20)
[2017-11-10] MEDS ORDERED: HEPARIN SOD (PORCINE) 5,000 UNIT/ML 1 ML SYRINGE ONE (07:20)
[2017-11-10] MEDS ORDERED: FENTANYL CITRATE INJ/PF 100 MCG/2 ML AMPUL ONE (07:20)
[2017-11-10] MEDS ORDERED: LIDOCAINE 1% INJ-PF (10 MG/ML) 30 ML SDV ONE (08:05)
--- NOTE | 2017-11-10 12:21 | CARDIAC CATHERIZATION REPORT ---
CARDIAC CATHETERIZATION REPORT PATIENT NAME: TERESA MUNOZ MR#: [id number] : 1935 ROOM#: 305 DATE OF STUDY: 11/10/2017 INDICATION: Progressive dyspnea on exertion and aortic stenosis. PROCEDURE: After informed consent was obtained, the patient was brought to the cardiac catheterization lab. The right femoral region was prepared in the usual sterile and draped manner, anesthetized with 1% lidocaine solution. Hemodynamic access was gained without difficulty. The right radial artery was also prepared and selected for coronary angiography. Left ventriculography was performed through the wrist. There was difficulty obtaining retrograde access through the brachial vein, and the right femoral vein was used with access in that location for right heart catheterization. Conscious sedation was initiated, monitored, and maintained during the procedure with a start time of 8:46 and a completion time of 9:54 for a conscious sedation time of 68 minutes. A total of 1 mg of Versed and 50 mcg of fentanyl were administered for conscious sedation. HEMODYNAMIC DATA: Aortic pressure at the beginning of the case was 115/53. Simultaneously recorded pressures demonstrate a gradient of 34 mmHg. Left ventricular pressure was 145/27. Aortic pressure was 117/63. RIGHT HEART PRESSURES: The pulmonary capillary wedge pressure is 22, PA pressure is 40/15, RV is 40/4, right atrial mean pressure is 8, Qp:Qs ratio is 0.9. Aortic valve peak gradient is 28 with a mean gradient of 34, heart rate of 58. The valve calculates at 1.0 cm2 with a valve area index of 0.58. CORONARY ANGIOGRAPHY: The right coronary artery is a dominant vessel supplying the PDA and posterolateral branches. There is some luminal irregularities with a 20% to 30% stenosis in the mid portion. No critical or focal stenoses are seen. There is moderate to heavy calcification of the [place] left system and the aortic valve. LEFT MAIN: The left main is normal. LAD: The proximal LAD at the first septal slip filler has a 75% to 80% stenosis. The mid LAD has an ulcerated stenosis prior to a diagonal branch. The ongoing LAD is transapical and without significant obstruction. There is diagonal vessel which is small caliber proximally. CIRCUMFLEX CORONARY ARTERY: The circumflex supplies a first obtuse marginal that bifurcates into the posterolateral branches. There is diffuse disease. The inferior ramus has an 80% to 90% stenosis, the superior one has a 75% or greater stenosis. Left ventriculography is performed in the standard BURNETT projection. This demonstrates normal left ventricular systolic function without mitral regurgitation. IMPRESSION: 1. Preserved left ventricular function. 2. Severe but not critical aortic stenosis. 3. Diffuse disease in the circumflex and LAD distributions. DISCUSSION: Options for this elderly gentleman would be stent implantation in the LAD and circumflex followed by TAVR versus bypass surgery with concomitant aortic valve replacement. INTERPRETING PHYSICIAN: FUAD ALVAREZ M.D. /: [id number] TT: [id number] ID: [id number] /: [id number] TD: 1137 JOB: [id number] cc:RAFAELA FARRIS M.D. MD FUAD LESTER M.D. STEPHANIE WEBB M.D. >
[2017-11-10] MEDS: AMLODIPINE BESYLATE 2.5 MG TABLET PO SCH ×2 (13:53→21:59)
[2017-11-10] MEDS: METHYLPREDNISOLONE INJ 40 MG/1 ML SDV IV SCH ×2 (13:54→21:59)
[2017-11-10] MEDS: ASPIRIN 81 MG TABLET, ENT COATED PO SCH (13:55)
--- NOTE | 2017-11-10 17:02 | PDOC PROGRESS REPORT ---
Subjective Progress Note for:: 11/10/17 Subjective:: Patient was admitted for chest pain. No acute event overnight. Patient just came back from [facility]. He appears comfortable in bed. He denies any chest pain. Denies shortness of breath at the moment. Reason For Visit: HEART FAILURE, ELEVATED TROPONIN Physical Exam Vital Signs: Temp Pulse Resp BP Pulse Ox 97.4 F 95 12 113/70 97 11/10/17 13:15 11/10/17 14:00 11/10/17 13:15 11/10/17 13:15 11/10/17 13:15 Pulse Oximeter Continuous Start: 11/07/17 19: 59 Freq: RTQ4 Status: Complete Document 11/09/17 08:56 HCR (Rec: 11/09/17 09:23 HCR [id number]) Pulse Oximetry Assessment Oxygen Saturation (92-100) 94 Oxygen Delivery Method Room Air Fraction of Inspired Oxygen (FIO2) 21 Equipment Usage Equipment in Use Continuous SpO2 Machine # 11 Intake & Output 11/09/17 11/10/17 11/11/17 06:59 06:59 06:59 Intake Total 1424 1700 Output Total 1700 0 Balance -276 1700 Weight 158 lb 1.143 oz 160 lb 7.944 oz General appearance: PRESENT: no acute distress, well-developed, well-nourished Head exam: PRESENT: atraumatic, normocephalic Eye exam: PRESENT: conjunctiva pink, EOMI, PERRLA. ABSENT: scleral icterus Mouth exam: PRESENT: moist, tongue midline Neck exam: ABSENT: carotid bruit, JVD, lymphadenopathy, thyromegaly Respiratory exam: PRESENT: clear to auscultation aga. ABSENT: rales, rhonchi, wheezes Cardiovascular exam: PRESENT: systolic murmur, other - regular rate and rhythm Pulses: PRESENT: normal dorsalis pedis pul GI/Abdominal exam: PRESENT: normal bowel sounds, soft. ABSENT: distended, guarding, mass, organolmegaly, rebound, tenderness Rectal exam: PRESENT: deferred Extremities exam: PRESENT: full ROM. ABSENT: calf tenderness, clubbing, pedal edema Musculoskeletal exam: PRESENT: ambulatory Neurological exam: PRESENT: alert, awake, oriented to person, oriented to place , oriented to time, oriented to situation, CN II-XII grossly intact. ABSENT: motor sensory deficit Results Laboratory Results: 11/10/17 04:07 11/10/17 04:07 11/10/17 11/10/17 04:07 04:07 WBC 7.5 RBC 4.19 L Hgb 13.4 L Hct 39.4 MCV 94 MCH 32.0 MCHC 33.9 RDW 14.0 Plt Count 170 Seg Neutrophils % 89.6 H Lymphocytes % 5.2 L Monocytes % 5.1 Eosinophils % 0.0 Basophils % 0.1 Absolute Neutrophils 6.7 Absolute Lymphocytes 0.4 L Absolute Monocytes 0.4 Absolute Eosinophils 0.0 Absolute Basophils 0.0 Sodium 139.4 Potassium 4.3 Chloride 101 Carbon Dioxide 27 Anion Gap 11 BUN 43 H Creatinine 0.98 Est GFR ( Amer) > 60 Est GFR (Non-Af Amer) > 60 Glucose 149 H Calcium 8.9 11/07/17 11/08/17 11/08/17 22:10 04:29 09:59 Troponin I 1.580 1.940 1.350 11/09/17 09:05 Troponin I 0.739 Impressions: Chest X-Ray 11/07/17 12:28 IMPRESSION: COPD. NO ACUTE RADIOGRAPHIC FINDING IN THE CHEST. Chest/Abdomen CTA 11/07/17 17:14 IMPRESSION: 1. No pulmonary emboli. 2. Small bilateral pleural effusions with mild bibasilar atelectasis. Bilateral pleural calcifications. 3. Coronary arteries calcifications. Assessment & Plan - Diagnosis (1) Elevated troponin Is this a current diagnosis for this admission?: Yes Plan: Troponin has been trending down from 1.9-0.7. Patient underwent cardiac catheterization today which showed stenosis on the circumflex and LAD distributions. Will discuss with cardiology for further recommendations. (2) Pulmonary asbestosis Is this a current diagnosis for this admission?: Yes Plan: Stable. - Time Time Spent with patient: 15-24 minutes
[2017-11-11] MEDS ORDERED: RADIAL COCKTAIL SYRINGE 10 ML IV PRN ×4 (05:00)
[2017-11-11 05:35] LABS: INTERNATIONAL RATION (INR) 0.99; PROTHROMBIN TIME 13.6 SEC (11.4-15.4)
[2017-11-11] MEDS: APIXABAN 2.5 MG TABLET PO SCH ×2 (10:12→17:26)
[2017-11-11] MEDS: METHYLPREDNISOLONE INJ 40 MG/1 ML SDV IV SCH (10:12)
[2017-11-11] MEDS: ASPIRIN 81 MG TABLET, ENT COATED PO SCH (10:12)
[2017-11-11] MEDS: AMLODIPINE BESYLATE 2.5 MG TABLET PO SCH ×2 (10:12→21:18)
--- NOTE | 2017-11-11 15:39 | PDOC PROGRESS REPORT ---
Subjective Progress Note for:: 11/11/17 Subjective:: Patient was admitted for chest pain. No acute event overnight. Patient underwent cardiac cath yesterday. He appears comfortable in bed. He denies any chest pain. Denies shortness of breath at the moment. Reason For Visit: HEART FAILURE, ELEVATED TROPONIN Physical Exam Vital Signs: Temp Pulse Resp BP Pulse Ox 97.6 F 63 17 117/69 100 11/11/17 11:19 11/11/17 11:19 11/11/17 11:19 11/11/17 11:19 11/11/17 11:19 Pulse Oximeter Continuous Start: 11/07/17 19: 59 Freq: RTQ4 Status: Complete Document 11/09/17 08:56 HCR (Rec: 11/09/17 09:23 HCR [id number]) Pulse Oximetry Assessment Oxygen Saturation (92-100) 94 Oxygen Delivery Method Room Air Fraction of Inspired Oxygen (FIO2) 21 Equipment Usage Equipment in Use Continuous SpO2 Machine # 11 Intake & Output 11/10/17 11/11/17 11/12/17 06:59 06:59 06:59 Intake Total 1700 724 0 Output Total 0 Balance 1700 724 0 Weight 160 lb 7.944 oz 167 lb 12.348 oz General appearance: PRESENT: no acute distress, well-developed, well-nourished Head exam: PRESENT: atraumatic, normocephalic Eye exam: PRESENT: conjunctiva pink, EOMI, PERRLA. ABSENT: scleral icterus Ear exam: PRESENT: normal external ear exam Mouth exam: PRESENT: moist, tongue midline Neck exam: ABSENT: carotid bruit, JVD, lymphadenopathy, thyromegaly Respiratory exam: PRESENT: clear to auscultation aga. ABSENT: rales, rhonchi, wheezes Cardiovascular exam: PRESENT: RRR. ABSENT: diastolic murmur, rubs Pulses: PRESENT: normal dorsalis pedis pul GI/Abdominal exam: PRESENT: normal bowel sounds, soft. ABSENT: distended, guarding, mass, organolmegaly, rebound, tenderness Rectal exam: PRESENT: deferred Neurological exam: PRESENT: alert, awake, oriented to person, oriented to place , oriented to time, oriented to situation, CN II-XII grossly intact. ABSENT: motor sensory deficit Results Laboratory Results: 11/10/17 04:07 11/10/17 04:07 11/07/17 11/08/17 11/08/17 22:10 04:29 09:59 Troponin I 1.580 1.940 1.350 11/09/17 09:05 Troponin I 0.739 Impressions: Chest X-Ray 11/07/17 12:28 IMPRESSION: COPD. NO ACUTE RADIOGRAPHIC FINDING IN THE CHEST. Chest/Abdomen CTA 11/07/17 17:14 IMPRESSION: 1. No pulmonary emboli. 2. Small bilateral pleural effusions with mild bibasilar atelectasis. Bilateral pleural calcifications. 3. Coronary arteries calcifications. Assessment & Plan - Diagnosis (1) Elevated troponin Is this a current diagnosis for this admission?: Yes Plan: Troponin has been trending down from 1.9-0.7. Patient underwent cardiac catheterization today which showed stenosis on the circumflex and LAD distributions. Discussed with cardiology. Dr. Zuniga is recommended close outpatient follow-up and workup for possible aortic valve replacement. Patient will be set up with evaluation with Dr Magdaleno de luna at [facility]. (2) Pulmonary asbestosis Is this a current diagnosis for this admission?: Yes Plan: Stable. (3) History of DVT (deep vein thrombosis) Is this a current diagnosis for this admission?: Yes Plan: She was started on Eliquis by cardiology for history of DVT. (4) Hypertension Is this a current diagnosis for this admission?: Yes Plan: Controlled. Continue amlodipine. - Time Time Spent with patient: 15-24 minutes Anticipated discharge: Home Within: within 24 hours
--- NOTE | 2017-11-11 16:01 | PROGRESS NOTE E ---
Progress Note NAME: TERESA MUNOZ : 1935 AGE: 81Y DATE: 11/10/2017 ROOM: 305 SUBJECTIVE: Note the patient had a successful cardiac catheterization done today. He denies any chest pain or discomfort. There is no shortness of breath. The right wrist is where had the left heart catheterization, in the right groin he had the right heart catheterization without problems. He has no PND or orthopnea. Shortness of breath is the same. He denies any chest pain or discomfort. There is no leg edema. There are no TIA or CVA symptoms. OBJECTIVE: GENERAL: The patient is well built and well nourished at present in no acute distress. VITAL SIGNS: He is afebrile with a temperature of 97.4 degrees Fahrenheit, pulse 60 beats per minute, blood pressure 113/70, respirations are 12 per minute, O2 sats are 97% on room air. HEENT: Head is atraumatic/normocephalic. Eyes: Pupils are equal, round, regular, reactive to light and accommodation. Extraocular movements are normal. There is no conjunctival pallor. There is no scleral icterus. ENT is negative. NECK: Supple. There is no JVD. Carotids are equal. There is a transmitted aortic stenosis murmur heard over the carotids. There is carotid delay present. There is no lymphadenopathy. There is no goiter. Trachea is central. LUNGS: Diminished air entry. Prolonged expiration without any rhonchi, rales, or wheezing. There is hyperresonance on palpation. HEART: S1, S2 is heard. There is no S3 gallop. There is no S4 gallop. There is a systolic murmur of aortic stenosis present. A2 is muffled. There is no thrill. There is mild mitral regurgitation murmur present. There is no rub, there is no gallop. ABDOMEN: Soft, nontender. There is no hepatosplenomegaly. Bowel sounds are well heard. There are no tender areas or masses. There is no rebound, guarding, or rigidity. EXTREMITIES: Femorals are diminished. There is no femoral bruit. Leg pulses are diminished. There is no DVT or cellulitis. As mentioned above, the right wrist where he had the left heart catheterization and the right groin where he had the right heart catheterization are stable. His cath report has been noted. ON SITE WASTEWATER SYSTEMS TECHNICIAN: The patient is conscious, awake, alert, oriented x3. No focal deficit. PSYCHIATRIC: The patient's judgment and insight are intact. His affect is normal. The patient's cardiac catheterization showed the pulmonary capillary wedge pressure was 22, the PA pressure was 40/15, RV 40/4, right atrial mean pressure is 8. The QT/QS ratio is 0.9. Aortic peak gradient is 58 with a mean gradient of 34. Heart rate of 58. The valve with a valve index of 0.58. Coronary arteries showed that the left main is normal. The right coronary artery had some luminal irregularities with 20-30% stenosis in the mid portion. There is moderate aortic calcification of the te-moak left system, and the aortic valve. The proximal LAD at the first septal tester sound has a 75-80% stenosis. The mid LAD has stenosis in the diagonal branch. The ongoing LAD is transapical and without significant obstruction. The circumflex supplies a first obtuse marginal, bifurcates into posterolateral branches. There is diffuse disease of 80% to 90% stenosis. The superior has a 70-80% stenosis. The left ventricular ejection fraction is preserved. Severe but not critical aortic stenosis, diffuse disease in the circumflex and LAD distributions. The patient's white count is 9500, hemoglobin 13.4, hematocrit 39.4, platelet count 170,000. His sodium is 139.4, potassium 4.3, chloride 101, CO2 is 27. The patient's BUN is 43, creatinine 0.98, GFR greater than 60. Glucose 149. Calcium 8.9. ASSESSMENT: 1. NON-ST ELEVATION MYOCARDIAL INFARCTION. 2. SHORTNESS OF BREATH, COMBINATION OF EMPHYSEMA/ASBESTOSIS OF THE LUNG, AORTIC STENOSIS AND CORONARY ARTERY DISEASE. 3. CORONARY ARTERY DISEASE WITH SIGNIFICANT LESIONS IN THE LAD AND DIFFUSE DIEASE IN THE CIRCUMFLEX WITH PRESERVED LEFT VENTRICULAR EJECTION FRACTION. 4. SEVERE AORTIC STENOSIS BUT NOT CRITICAL. 5. HYPERTENSION. 6. HYPERLIPIDEMIA. 7. HISTORY OF ASBESTOSIS. 8. CHRONIC OBSTRUCTIVE PULMONARY DISEASE/EMPHYSEMA/HISTORY OF ASTHMA. 9. PAST HISTORY OF DEEP VENOUS THROMBOSIS. 10. PAST HISTORY OF PULMONARY EMBOLISM. PLAN: The severity of the patient's lung condition needs to be determined to see if the patient can tolerate coronary artery bypass grafting and aortic valve replacement. It might be that the patient is a better candidate for percutaneous intervention of the left anterior descending artery, although this may be at a slightly higher risk in view of the te-[place]ak coronary artery system, and also have a TAVR. The plan is to continue the patient on Norvasc, increase as tolerated. Place the patient on aspirin 81 mg p.o. daily, and also place the patient on Eliquis 2.5 mg p.o. twice daily for prevention of deep venous thrombosis recurrence. Note that the patient has a past history of deep venous thrombosis and history of pulmonary embolism. This has been discussed with the patient in detail and also with the patient's daughter. The cardiac catheterization findings were discussed by me with the patient and the patient's daughter. Will contact the valve center asset accountant at [facility] and see if the patient can be put into their system so that the lung workup can be done, and also simultaneously seen by a cardiothoracic surgeon and products mechanical design engineer to see which is the best option for the patient. In the meantime, will keep the patient for another 24 hours and watch him on the current medications. This has been discussed in detail with the patient and the patient's daughter, and also with the hospitalist taking care of the patient. Note 50 minutes spent on this patient, with more than 50% of the time spent in direct patient care. Medical decision making is of high complexity. Will follow with you. DICTATING PHYSICIAN: STEPHANIE WEBB M.D. [id number] ROBERT#: [id number] ID: [id number] JOB#: [id number] ACCT: [id number] cc: >
--- NOTE | 2017-11-11 16:04 | PROGRESS NOTE E ---
Progress Note NAME: TERESA MUNOZ : 1935 AGE: 81Y DATE: 11/09/2017 ROOM: 305 SUBJECTIVE: The patient had a brief spell of shortness of breath, and after he coughed up white sputum, he felt much better. He is not short of breath anymore. There is no chest pain or discomfort. There is no orthopnea. There is no PND. There is no arrhythmia seen on the monitor. There are no palpitations. There is no TIA or CVA symptoms. There are no symptoms of DVT. OBJECTIVE: GENERAL: The patient is well built and well nourished, in no acute distress. VITAL SIGNS: He is afebrile with a temperature of 97.9 degrees Fahrenheit, pulse 77 beats per minute, blood pressure 106/60, respirations 18 per minute. O2 sats are 95% on room air. HEENT: Head is normocephalic/atraumatic. Eyes: Pupils are equal, round, regular, reactive to light and accommodation. Extraocular movements are normal. There is no conjunctival pallor. There is no scleral icterus. Ears: Tympanic membranes are intact. External auditory canals are clear. Nose: There is no deviated nasal septum. There is no inflammation of the nasal mucosal membranes. Mouth: Mucous membranes are moist. Tongue is moist. There is no ulcer. There is no bleeding from the gums. Throat: There is no redness of the oropharynx. There are no exudates. NECK: Supple. Carotids without any bruits, but there is a transmitted murmur over the carotids. There is carotid present. There is no lymphadenopathy. Trachea is central. LUNGS: Diminished air entry. Prolonged expiration without any rhonchi, rales, or wheezing. There is hyperresonance on percussion. There is no chest wall tenderness. HEART: S1, S2 heard. There is no S3 gallop. There is no S4 gallop. There is a systolic murmur at the left sternal border and apex. There is no rub. There is murmur of aortic stenosis present. is muffled but heard. There is no thrill. There is murmur of aortic regurgitation. There is murmur of mild mitral regurgitation present. ABDOMEN: Soft, nontender. There is no hepatosplenomegaly. Bowel sounds are well heard. There are no tender areas or masses. EXTREMITIES: Femorals are diminished. There are no femoral bruits. Leg pulses are diminished. There is no pedal edema. There is no DVT or cellulitis. There is no calf tenderness. There is no clubbing or cyanosis. HOSPICE EXECUTIVE DIRECTOR: The patient is conscious, awake, alert, oriented x3 with no focal deficits. PSYCHIATRIC: The patient's judgment and insight are intact. His affect is normal. The patient's EKG shows sinus rhythm, within normal limits. The patient's troponin-I has come down to 0.739. The patient's liver function tests are normal. The patient's HDL is 93. His LDL is slightly elevated at 107. His triglycerides are good at 61. His albumin is 4.1, and his total protein is 6.8. ASSESSMENT: 1. NON-ST ELEVATION MYOCARDIAL INFARCTION. At present, the patient is chest pain free and the troponin-I is trending down. 2. AORTIC STENOSIS. Needs catheterization to define the severity of the stenosis. 3. MILD MITRAL STENOSIS BY ECHOCARDIOGRAM. 4. MOST LIKELY, THE PATIENT HAS CORONARY ARTERY DISEASE IN VIEW OF THE MODERATE TO SEVERELY CALCIFIED CORONARY ARTERIES AND THE PATIENT'S TROPONIN-I LEAK. At present, the patient is without any anginal symptoms. The patient's electrocardiogram is normal now, and the patient's troponin-I is trending down. 5. CONSTRICTIVE PERICARDITIS is a consideration, but needs catheterization to define whether this is the case or not. 6. HYPERTENSION. 7. HYPERLIPIDEMIA WITH MINIMALLY ELEVATED LDL, WITH EXCELLENT HDL LEVELS AND NORMAL TRIGLYCERIDE LEVELS. 8. ASBESTOSIS. 9. HISTORY OF ASTHMA/CHRONIC OBSTRUCTIVE PULMONARY DISEASE. PLAN: Will give the patient's Lovenox earlier tonight and stop it, and keep the patient NPO for cardiac catheterization. The nurse has been asked to show the patient a cath-teaching video. The risks and benefits of cardiac catheterization were discussed with the patient and the patient's daughter. The risks of and stroke, vascular bleeding, and complications including renal failure and need for CPR, and the benefits and complications of conscious sedation have all been discussed. The patient is acceptable to have cardiac catheterization later on. I have spoken to Dr. Chetan Sneed, and I appraised him that the patient needs right and left heart catheterization. The patient needs to see if he has extensive coronary artery disease with severity estimation of the lesions, need for severity of aortic stenosis, and the severity of mitral stenosis, and also a right heart catheterization to also see if the patient has constrictive pericarditis. Medical decision making is of a highly complex nature. Will keep the patient NPO and Dr. Sneed has accepted to do the cardiac catheterization tomorrow at [facility]. I have discussed with the patient that if there is a revascularizable lesion percutaneously that can be done, the patient will be transferred emergently to [facility] to have the revascularization done. 45 minutes spent on this patient. More than 50% of the time was spent in direct patient care. Will follow the patient after catheterization. DICTATING PHYSICIAN: STEPHANIE WEBB M.D. [id number] ROBERT#: [id number] ID: [id number] JOB#: [id number] ACCT: [id number] cc: >
--- NOTE | 2017-11-11 23:01 | PROGRESS NOTE E ---
Progress Note NAME: TERESA MUNOZ : 1935 AGE: 81Y DATE: 11/11/2017 ROOM: 305 SUBJECTIVE: The patient denies any chest pain or discomfort. There is no PND or orthopnea. There is no shortness of breath at rest. There is no arrhythmia seen. There is no dizziness, syncope, or near syncope. There is no leg edema. OBJECTIVE: GENERAL: The patient is well built and well nourished. He is in no acute distress. VITAL SIGNS: He is afebrile with a temperature of 97.6 degrees Fahrenheit, pulse is 63 beats per minute, blood pressure 117/69, respirations 17 per minute. O2 sat is 100% on 2 liters nasal cannula. HEENT: Head is normocephalic/atraumatic. Pupils are equal, round, regular, reactive to light and accommodation. Extraocular movements are normal. There is no conjunctival pallor. There is no scleral icterus. ENT is negative. NECK: Supple. There is no JVD. Carotids are equal. There is no bruit. There is no lymphadenopathy. There is no goiter. Trachea is central. LUNGS: Diminished air entry and prolonged expiration without any rhonchi, rales, or wheezing. There is hyperresonance on percussion. There is no chest wall tenderness. HEART: S1, S2 heard. There is no S4 gallop. There is no S3 gallop. There is murmur of aortic stenosis present with radiation to the carotids. There is carotid delay. A2 sound is well heard. There is mild mitral regurgitation murmur present. There is no rub. ABDOMEN: Soft, nontender. There is no hepatosplenomegaly. Bowel sounds are well heard. There are no tender areas or masses. EXTREMITIES: Femorals are diminished. Leg pulses are diminished. There are no femoral bruits. There is no pedal edema. There is no DVT or cellulitis. There is no calf tenderness. There is no cyanosis or clubbing. TAR HEATER: The patient is conscious, awake, alert, oriented x3 with no focal deficit. PSYCHIATRIC: The patient's judgment and insight are intact. His affect is normal. ASSESSMENT: 1. NON-ST ELEVATION MYOCARDIAL INFARCTION. At present, stable. The patient is without anginal symptoms. 2. SHORTNESS OF BREATH. Combination of emphysema/asbestosis of the lung and aortic stenosis, and coronary artery disease. 3. CORONARY ARTERY DISEASE. Significant lesions in the LAD and diffuse disease of the circumflex with preserved left ventricular ejection fraction. 4. SEVERE AORTIC STENOSIS. Not critical. 5. HYPERTENSION. 6. HYPERLIPIDEMIA. 7. HISTORY OF ASBESTOSIS. 8. HISTORY OF ASTHMA/CHRONIC OBSTRUCTIVE PULMONARY DISEASE. 9. PAST HISTORY OF DEEP VENOUS THROMBOSIS. 10. PAST HISTORY OF PULMONARY EMBOLISM. PLAN: Note that the patient is tolerating aspirin and Eliquis, and his blood pressure is stable on Norvasc. His medications have been reviewed. Note 40 minutes were spent on the patient, with more than 50% of the time spent in direct patient care. I am still trying to contact Dr. Dolan *------* of [facility] *------* clinic to set up the patient to see them as an outpatient, including a referral to the licensed insurance agent to work up the patient's lung status. Medical decision making is of high complexity. Discussed with the hospitalist. Discussed with the patient and the patient's daughter. Will follow with you. DICTATING PHYSICIAN: STEPHANIE WEBB M.D. [id number] PHY#: [id number] ID: [id number] JOB#: [id number] ACCT: [id number] cc: >
[2017-11-12] MEDS: ASPIRIN 81 MG TABLET, ENT COATED PO SCH (09:48)
[2017-11-12] MEDS: APIXABAN 2.5 MG TABLET PO SCH ×2 (09:49→17:20)
[2017-11-12] MEDS: AMLODIPINE BESYLATE 2.5 MG TABLET PO SCH (09:49)
[2017-11-12] MEDS ORDERED: PREDNISONE 20 MG TABLET PO SCH (10:00)
--- NOTE | 2017-11-12 14:51 | PDOC DISCHARGE SUMMARY ---
General - Admit/Disc Date/PCP Admission Date/Primary Care Provider: 11/07/17 20:16 YISEL HOLLINGSWORTH MD Discharge Date: 11/12/17 - Discharge Diagnosis (1) Elevated troponin Is this a current diagnosis for this admission?: Yes (2) Pulmonary asbestosis Is this a current diagnosis for this admission?: Yes (3) History of DVT (deep vein thrombosis) Is this a current diagnosis for this admission?: Yes (4) Hypertension Is this a current diagnosis for this admission?: Yes - Additional Information Resuscitation Status: Full Code Discharge Diet: Cardiac Discharge Activity: Activity As Tolerated, Balance Activity w/Rest, Weigh Daily Prescriptions: Apixaban [Eliquis 5 mg Tablet] 5 mg PO Q12 30 Days #60 tablet Aspirin [Ecotrin 81 mg EC Tablet] 81 mg PO DAILY #60 tabec Home Medications: Albuterol Sulfate [Proair HFA Inhalation Aerosol 8.5 gm MDI] 2 puff IH Q6HP PRN 11/09/17 Budesonide/Formoterol Fumarate [Symbicort HFA 160-4.5 mcg Inhaler 6 gm] 2 puff IH Q12 11/09/17 Lisinopril [Prinivil 40 mg Tablet] 40 mg PO DAILY 11/09/17 Apixaban [Eliquis 5 mg Tablet] 5 mg PO Q12 30 Days #60 tablet 11/12/17 Aspirin [Ecotrin 81 mg EC Tablet] 81 mg PO DAILY #60 tabec 11/12/17 History of Present Illness History of Present Illness: TRINA DELAROSA is a 81 year old male entering to the emergency department secondary to shortness of breath. Patient has a known past medical history of asbestosis with chronic emphysema for which she follows with a pathology assistant in [place], last seen 2 months ago. States he has been having increased worsening of his shortness of breath over the past 2 days and has been needing to use his inhaler more frequently than usual. States he feels better with rest. Denies worsening of shortness of breath when lying flat. Denies history of smoking. He becomes dyspneic with minimal exertion. Chest pain, denies palpitations. Hospital Course Hospital Course: Mr. Delarosa is an 81-year-old male with a past medical history of coronary artery disease, hypertension, aortic stenosis, history of 2 DVTs on chronic anticoagulation with Eliquis, emphysema and pulmonary asbestosis who presented with increasing shortness of breath. Patient upon admission was noted to have elevated troponins. He was started on breathing treatments and steroids for possible exacerbation of his emphysema and asbestosis. Patient significantly clinically improved over the over the next few days. Has been saturating well on room air since then. Cardiology was consulted. His echocardiogram showed an EF of 60% with grade 1 diastolic dysfunction and moderate to severe aortic stenosis with a peak gradient of 69 mmHg. Patient underwent cardiac catheterization which showed preserved left ventricular function and severe aortic stenosis. There was also diffuse disease in the circumflex and left anterior descending distributions. Recommendation after cath was a possible evaluation for stent implantation in the LAD and circumflex artery followed by T AVR versus bypass surgery with concomitant aortic valve replacement. Cardiology has set up the patient with Dr. Magdaleno de luna for outpatient follow- up and workup for these procedures. Physical Exam Vital Signs: Temp Pulse Resp BP Pulse Ox 97.2 F 62 17 105/60 98 11/12/17 14:11 11/12/17 14:11 11/12/17 14:11 11/12/17 14:11 11/12/17 14:11 Pulse Oximeter Continuous Start: 11/07/17 19: 59 Freq: RTQ4 Status: Complete Document 11/09/17 08:56 HCR (Rec: 11/09/17 09:23 HCR [id number]) Pulse Oximetry Assessment Oxygen Saturation (92-100) 94 Oxygen Delivery Method Room Air Fraction of Inspired Oxygen (FIO2) 21 Equipment Usage Equipment in Use Continuous SpO2 Machine # 11 Intake & Output 11/11/17 11/12/17 11/13/17 06:59 06:59 06:59 Intake Total 724 414 473 Balance 724 414 473 Weight 167 lb 12.348 oz 168 lb 6.931 oz General appearance: PRESENT: no acute distress, well-developed, well-nourished Head exam: PRESENT: atraumatic, normocephalic Eye exam: PRESENT: conjunctiva pink, EOMI, PERRLA. ABSENT: scleral icterus Mouth exam: PRESENT: moist, tongue midline Neck exam: ABSENT: carotid bruit, JVD, lymphadenopathy, thyromegaly Respiratory exam: PRESENT: clear to auscultation aga. ABSENT: rales, rhonchi, wheezes Cardiovascular exam: PRESENT: systolic murmur Pulses: PRESENT: normal dorsalis pedis pul GI/Abdominal exam: PRESENT: normal bowel sounds, soft. ABSENT: distended, guarding, mass, organolmegaly, rebound, tenderness Rectal exam: PRESENT: deferred Neurological exam: PRESENT: alert, awake, oriented to person, oriented to place , oriented to time, oriented to situation, CN II-XII grossly intact. ABSENT: motor sensory deficit Results Laboratory Results: 11/10/17 04:07 11/10/17 04:07 11/07/17 11/08/17 11/08/17 22:10 04:29 09:59 Troponin I 1.580 1.940 1.350 11/09/17 09:05 Troponin I 0.739 Impressions: Chest X-Ray 11/07/17 12:28 IMPRESSION: COPD. NO ACUTE RADIOGRAPHIC FINDING IN THE CHEST. Chest/Abdomen CTA 11/07/17 17:14 IMPRESSION: 1. No pulmonary emboli. 2. Small bilateral pleural effusions with mild bibasilar atelectasis. Bilateral pleural calcifications. 3. Coronary arteries calcifications. Qualifiers - * PATIENT BEING DISCHARGED WITH ANY OF THE FOLLOWING DIAGNOSIS: VTE (PE or DVT) VTE patient discharged on overlapping Therapy?: No Reason(s) for not prescribing Overlap Therapy:: Not indicated - already on Eliquis
[2017-11-12 16:31] VITALS: BP 114/67
--- NOTE | 2017-11-13 06:36 | PROGRESS NOTE E ---
Progress Note NAME: TERESA MUNOZ : 1935 AGE: 81Y DATE: 11/12/2017 ROOM: 305 SUBJECTIVE: Note that the patient denies any chest pain or discomfort. There is no shortness of breath. There is no PND, orthopnea. There is no leg edema. There are no palpitations. There is no arrhythmia seen on the monitor. The patient is well built. He is in no acute distress. OBJECTIVE: VITAL SIGNS: He is afebrile with a temperature of 97.2 degrees Fahrenheit. His pulse is 62 beats per minute, blood pressure is 122/63, respirations are 17 per minute, O2 saturations are 98% on room air. HEAD: Atraumatic, normocephalic. EYES: Pupils are equal, round, regular, reactive to light and accommodation. Extraocular movements are normal. There is no conjunctival pallor. There is no scleral icterus. ENT: Negative. NECK: Supple. There is no JVD. Carotids are equal. There is carotid delay present. There is *------* aortic stenosis murmur present. LUNGS: Diminished air entry, prolonged expiration without any rhonchi, rales, or wheezing. S1 and S2 are heard. There is no S3 gallop. There is no S4 gallop. There is murmur of aortic stenosis present. There is no thrill. A2 is diminished. There is carotid delay present. There is no rub. There is mild mitral regurgitation murmur present. ABDOMEN: Soft, nontender. There is no hepatosplenomegaly. Bowel sounds are well heard. There are no tender areas or masses. EXTREMITIES: Femorals are diminished. Leg pulses are diminished. There are no femoral bruits. There is no pedal edema. There is no DVT or cellulitis. There is no calf tenderness. There is no cyanosis or clubbing. CENTRAL NERVOUS SYSTEM: The patient is conscious, awake, alert, oriented x3 with no focal deficits. PSYCHIATRIC: The patient's judgment and insight are intact. His affect is normal. ASSESSMENT: 1. NON-ST ELEVATION DC, AT PRESENT STABLE WITH THE PATIENT WITHOUT ANGINAL SYMPTOMS. 2. SHORTNESS OF BREATH, COMBINATION OF EMPHYSEMA/ASBESTOSIS OF THE LUNG, AORTIC STENOSIS AND CORONARY ARTERY DISEASE. 3. CORONARY ARTERY DISEASE, SIGNIFICANT LESIONS IN THE LAD AND DIFFUSE DISEASE OF THE CIRCUMFLEX WITH PRESERVED LEFT VENTRICULAR EJECTION FRACTION. 4. SEVERE AORTIC STENOSIS, NOT CRITICAL, BUT STILL MAY NEED TO BE REPLACED. 5. HYPERTENSION. 6. HYPERLIPIDEMIA. 7. HISTORY OF ASBESTOSIS. 8. HISTORY OF ASTHMA/COPD. 9. PAST HISTORY OF DVT. 10. PAST HISTORY OF PULMONARY EMBOLISM. PLAN: The patient is stable. There is no bleeding on Eliquis. There is no TIA or CVA symptoms. The patient is tolerating the amlodipine and aspirin. Continue these. Will discharge the patient home. I have given his information to Dr. Magdaleno Kat, the [facility] business services representative in [facility]. They will make arrangements for the patient to be seen, including the patient seeing a ski top trimmer. This has been discussed with the patient. The patient's information has been given to them at the request of the patient. Will follow with you as an outpatient. DICTATING PHYSICIAN: STEPHANIE WEBB M.D. [id number] ROBERT#: [id number] ID: [id number] JOB#: [id number] ACCT: [id number] cc: >
== END 2017-11-12 18:50 | disposition home or self-care (01) | DRG 281 ==
LOC: ER 11:54 → EH 20:16 → OBSVTOIN 20:16 → 3N 22:52
PROVIDERS: ADMIT Family Medicine; ATTEND Family Medicine
PROC: 4A023N8 Measurement of Cardiac Sampling and Pressure, Bilateral, Percutaneous Approach (ICD-10-PCS; principal; 2017-11-10)
PROC: B2011ZZ Plain Radiography of Multiple Coronary Arteries using Low Osmolar Contrast (ICD-10-PCS; 2017-11-10)
PROC: B2061ZZ Plain Radiography of Right and Left Heart using Low Osmolar Contrast (ICD-10-PCS; 2017-11-10)
DX: I21.4 Non-ST elevation (NSTEMI) myocardial infarction (principal); I31.1 Chronic constrictive pericarditis; I10 Essential (primary) hypertension; J61 Pneumoconiosis due to asbestos and other mineral fibers; J43.9 Emphysema, unspecified; I25.10 Atherosclerotic heart disease of native coronary artery without angina pectoris; I35.0 Nonrheumatic aortic (valve) stenosis; E78.00 Pure hypercholesterolemia, unspecified; I48.91 Unspecified atrial fibrillation; M19.90 Unspecified osteoarthritis, unspecified site; I25.2 Old myocardial infarction; Z86.718 Personal history of other venous thrombosis and embolism; Z79.899 Other long term (current) drug therapy; Z88.0 Allergy status to penicillin; Z88.8 Allergy status to other drugs, medicaments and biological substances; Z79.01 Long term (current) use of anticoagulants
CPT/HCPCS: 36415; 71045; 71275; 80048; 80053; 80061; 80076; 82803; 83735; 83880; 84484; 85025; 85610; 85652; 86140; 93005; 93010; 93306; 93460; 94640; 94762; 96374; 99285; C1887; J0171; J0461; J1644; J1650; J1940; J2250; J2310; J2920; J3010; J3490; J7512; J7620

== ENCOUNTER 2018-10-05 10:14 | Emergency (ER) | payer OTHER, MEDICARE, MEDICAID ==
[2018-10-05] MEDS ORDERED: IPRATROPIUM/ALBUTEROL 0.5-2.5 MG/3 ML AMPUL NEB ONE (10:34)
--- NOTE | 2018-10-05 10:42 | ER Document Report ---
ED Medical Screen (RME) - General Chief Complaint: Cough Stated Complaint: COUGH Time Seen by Provider: 10/05/18 10:26 Primary Care Provider: YISEL HOLLINGSWORTH MD [Primary Care Provider] - Follow up as needed Information source: Patient Notes: Patient presents complaining of cough for the past month that is productive. Patient denies any fever. Patient denies any shortness of breath. [facility]. Patient does incidentally state that he is taking 2 different blood thinning medications, Eliquis and Brilinta. Patient also reports that his cat bit him today on the hand. I have greeted and performed a rapid initial assessment of this patient. A comprehensive ED assessment and evaluation of the patient, analysis of test resu lts and completion of the medical decision making process will be conducted by additional ED providers. TRAVEL OUTSIDE OF THE [place] IN LAST 30 DAYS: No - Related Data Allergies/Adverse Reactions: Penicillins Allergy (Verified 10/05/18 10:15) pravastatin [Pravastatin] Allergy (Verified 10/05/18 10:15) Past Medical History - Past Medical History Cardiac Medical History: Reports: Hx DVT, Hx Hypercholesterolemia, Hx Hypertension Pulmonary Medical History: Reports: Hx Asthma Denies: Hx COPD, Hx Tuberculosis Endocrine Medical History: Denies: Hx Diabetes Mellitus Type 1, Hx Diabetes Mellitus Type 2 Renal/ Medical History: Denies: Hx Peritoneal Dialysis Musculoskeltal Medical History: Reports Hx Arthritis Psychiatric Medical History: Denies: Hx Anxiety, Hx Depression Past Surgical History: Denies: Hx Pacemaker - Immunizations History of Influenza Vaccine for 12/2016 - 05/2017 Season: Yes Influenza Administration Date for 12/2016 - 05/2017 Season: 12/28/16 Physical Exam - Vital signs Vitals: Temp Pulse Resp BP Pulse Ox 97.5 F 71 28 H 137/94 H 99 10/05/18 10:10/05/18 10:10/05/18 10:10/05/18 10:10/05/18 10:21 - Respiratory Respiratory status: No respiratory distress Breath sounds: Nonproductive cough, Wheezing Course - Vital Signs Vital signs: Temp Pulse Resp BP Pulse Ox 97.5 F 71 28 H 137/94 H 99 10/05/18 10:10/05/18 10:21 10/05/18 10:21 10/05/18 10:21 10/05/18 10:21 Doctor's Discharge - Discharge Referrals: YISEL HOLLINGSWORTH MD [Primary Care Provider] - Follow up as needed
[2018-10-05 10:56] LABS: ABSOLUTE BASOPHILS # (AUTO) 0.1 10^3/uL (0.0-0.2); ABSOLUTE EOSINOPHILS # (AUTO) 0.2 10^3/uL (0.0-0.6); ABSOLUTE LYMPHOCYTES (AUTO) 1.3 10^3/uL (0.5-4.7); ABSOLUTE MONOCYTES (AUTO) 0.7 10^3/uL (0.1-1.4); ABSOLUTE NEUT (AUTO) 4.6 10^3/uL (1.7-8.2); BASOPHILS % (AUTO) 0.7 % (0-2); EOSINOPHILS % (AUTO) 2.2 % (0-6); HEMATOCRIT 40.9 % (37.9-51.0); HEMOGLOBIN 13.7 g/dL (13.5-17.0); MEAN CORPUSCULAR HGB CONC 33.5 g/dL (32.0-36.0); MEAN CORPUSCULAR VOLUME 95 fl (80-97); MONOCYTES % (AUTO) 10.7 % (3-13); PLATELET COUNT 178 10^3/uL (150-450); RED BLOOD COUNT 4.29 10^6/uL (4.35-5.55); RED CELL DISTRIBUTION WIDTH 14.6 % (11.5-14.0); SEGMENTED NEUTROPHILS % (AUTO) 67.4 % (42-78); TOTAL CELLS COUNTED % (AUTO) 100 %; WHITE BLOOD COUNT 6.9 10^3/uL (4.0-10.5)
[2018-10-05 11:12] LABS: ANION GAP 9 (5-19); BLOOD UREA NITROGEN 16 mg/dL (7-20); CALCIUM 9.5 mg/dL (8.4-10.2); CARBON DIOXIDE 28 mmol/L (22-30); CHLORIDE 104 mmol/L (98-107); GLUCOSE 88 mg/dL (75-110); POTASSIUM 4.3 mmol/L (3.6-5.0); SODIUM 140.5 mmol/L (137-145)
--- NOTE | 2018-10-05 11:50 | RADIOLOGY REPORT (SQ) ---
EXAM DESCRIPTION: CHEST 2 VIEWS COMPLETED DATE/TIME: 10/05/2018 11:29 am REASON FOR STUDY: cough COMPARISON: CT of chest 11/07/2017. AP upright chest. 11/07/2017 EXAM PARAMETERS: NUMBER OF VIEWS: two views TECHNIQUE: Digital Frontal and Lateral radiographic views of the chest acquired. RADIATION DOSE: NA LIMITATIONS: none FINDINGS: LUNGS AND PLEURA: There are bilateral pleural plaque calcifications noted. No acute infil trates or effusions. MEDIASTINUM AND HILAR STRUCTURES: No masses or contour abnormalities. HEART AND VASCULAR STRUCTURES: Theheart is normal. Aortic atherosclerosis. Atherosclerotic coronar y calcification. Coronary stents BONES: No acute findings. HARDWARE: None in the chest. OTHER: No other significant finding. IMPRESSION: No significant interval change. TECHNICAL DOCUMENTATION: JOB ID: [id number] [place]-69 2010 [employer]- All Rights Reserved Reading location - IP/workstation name: [email or web address]
--- NOTE | 2018-10-05 12:04 | ER Document Report ---
ED Respiratory Problem - General Chief Complaint: Cough Stated Complaint: COUGH Time Seen by Provider: 10/05/18 10:26 Primary Care Provider: YISEL HOLLINGSWORTH MD [Primary Care Provider] - Follow up as needed Notes: Patient is an 82-year-old male with a history of pulmonary asbestosis, emphysema, COPD, CAD, DVT, 2 cardiac stents, aortic stenosis, hypertension who presents [facility] the [facility] department [facility] for evaluation of a productive cough for 1 month to have a chest x-ray. Patient states he has had an intermittent productive cough for about 1 month. Patient states the sputum is yellow in color. Patient does deny fever or chills. Patient states he has had a normal appetite without nausea vomiting or diarrhea. Patient states he does take breathing inhalers but has not needed them more frequently than normal. Patient states he is on Brilinta and Eliquis for his heart and previous history of DVTs. Patient states he does have some shortness of breath with exertion but that this is not new and has been ongoing for years. Patient states that the shortness of breath with exertion has not gotten worse. Patient denies chest pain. TRAVEL OUTSIDE OF THE [place] IN LAST 30 DAYS: No - Related Data Allergies/Adverse Reactions: Penicillins Allergy (Verified 10/05/18 10:15) pravastatin [Pravastatin] Allergy (Verified 10/05/18 10:15) Past Medical History - General Information source: Patient - Social History Smoking Status: Never Smoker Cigarette use (# per day): No Chew tobacco use (# tins/day): No Frequency of alcohol use: None Drug Abuse: None Lives with: Family Family History: Reviewed & Not Pertinent - Past Medical History Cardiac Medical History: Reports: Hx DVT, Hx Hypercholesterolemia, Hx Hypertension Pulmonary Medical History: Reports: Hx Asthma Denies: Hx COPD, Hx Tuberculosis EENT Medical History: Reports: None Neurological Medical History: Reports: None Endocrine Medical History: Reports: None. Denies: Hx Diabetes Mellitus Type 1, Hx Diabetes Mellitus Type 2 Renal/ Medical History: Reports: None. Denies: Hx Peritoneal Dialysis Malignancy Medical History: Reports None GI Medical History: Reports: None Musculoskeletal Medical History: Reports Hx Arthritis Skin Medical History: Reports None Psychiatric Medical History: Reports: None Denies: Hx Anxiety, Hx Depression Traumatic Medical History: Reports: None Infectious Medical History: Reports: None Past Surgical History: Reports: Hx Cardiac Catheterization, Hx Cardiac Surgery - Two cardiac stents. Denies: Hx Pacemaker - Immunizations Hx Pneumococcal Vaccination: 11/28/10 Review of Systems - Review of Systems Constitutional: No symptoms reported EENT: No symptoms reported Cardiovascular: No symptoms reported Respiratory: See HPI Gastrointestinal: No symptoms reported Genitourinary: No symptoms reported Male Genitourinary: No symptoms reported Musculoskeletal: No symptoms reported Skin: No symptoms reported Hematologic/Lymphatic: No symptoms reported Neurological/Psychological: No symptoms reported Physical Exam - Vital signs Vitals: Temp Pulse Resp BP Pulse Ox 97.5 F 71 28 H 137/94 H 99 10/05/18 10:21 10/05/18 10:21 10/05/18 10:21 10/05/18 10:21 10/05/18 10:21 Interpretation: Tachypneic - Notes Notes: GENERAL: Well-appearing, well-nourished and in no acute distress. HEAD: Atraumatic, normocephalic. EYES: Pupils equal round and reactive to light, extraocular movements intact, sclera anicteric, conjunctiva are normal. ENT: Nares patent, oropharynx clear without exudates. Moist mucous membranes. NECK: Normal range of motion, supple without lymphadenopathy or JVD. LUNGS: Breath sounds clear to auscultation bilaterally and equal. No wheezes rales or rhonchi. HEART: Regular rate and rhythm with murmur, no rubs or gallops. ABDOMEN: Soft, nontender, normoactive bowel sounds. No guarding, no rebound. No masses appreciated. BACK: No cervical, thoracic, lumbar midline tenderness. No saddle anesthesia, normal distal neurovascular exam. GENITOURINARY: Deferred. EXTREMITIES: Normal range of motion, no pitting or edema. No clubbing or cyanosis. NEUROLOGICAL: Cranial nerves II through XII grossly intact. Normal speech, normal gait. PSYCH: Normal mood, normal affect. SKIN: Warm, Dry, normal turgor, no rashes or lesions noted. Course - Re-evaluation Re-evalutation: 10/05/18 12:02 Upon initial evaluation patient is sitting upright in the chair without acute distress. Patient states he did receive a nebulizer treatment in triage. Patient states he does not feel any different as it did not increase or decrease his cough. Patient was able to hold a conversation without cough in the room. Per the report from the nurse [facility] the [facility] patient did have expiratory wheezing. Since seeing the patient after the nebulizer treatment the wheezing is not present in the lungs are clear throughout bilaterally. 10/05/18 12:10 Patient's BNP 1570. Patient does not have any swelling in his lower extremities and his chest x-ray no significant findings. There was bilateral pleural plaque calcifications that were noticed on the CT that was obtained in 2018. There are no infiltrates or effusions. The heart is normal in size. There is evidence of aortic atherosclerosis and coronary calcification with coronary stent which patient does have a history of. Patient sitting upright in no acute distress. Patient asking if he is able to go home. Patient denies chest pain or current shortness of breath. Patient states he has a sufficient amount of inhalers at home and does not need any refills. Patient was seen in triage by provider in had stated his cat had bit him on the hand. I did inquire this pote ntial bite with the patient. Patient states he did not get bit but cat scratched him. Patient states the cat is a young kitten. He states that the young kitten scratches at him all the time and he keeps the areas clean. I did inform the patient to keep the area clean and watch for signs of infection to include redness, fever, swelling, foul-smelling odor or discharge and to seek medical attention if he develops any of these signs or symptoms. 10/05/18 12:52 I did discuss the patient's case with my supervising physician, Dr. Flood who does not suggest antibiotics due to no fever, no white count. I did discuss strict return precautions with the patient. - Vital Signs Vital signs: Temp Pulse Resp BP Pulse Ox 97.9 F 72 20 102/64 98 10/05/18 12:18 10/05/18 12:18 10/05/18 12:18 10/05/18 12:18 10/05/18 12:18 - Laboratory Result Diagrams: 10/05/18 10:44 10/05/18 10:44 Laboratory results interpreted by me: 10/05/18 10/05/18 10:44 10:44 RBC 4.29 L RDW 14.6 H NT-Pro-B Natriuret Pep 1570 H 10/05/18 12:03 BNP is elevated at 1570. - Diagnostic Test Radiology reviewed: Reports reviewed Discharge - Discharge Clinical Impression: Bronchitis, Cough productive of yellow sputum Condition: Stable Disposition: HOME, SELF-CARE Additional Instructions: Today you were seen in the emergency department for productive cough x1 month. You were sent over here by the [facility] to obtain imaging. Your chest x-ray did not show a pneumonia or fluid on the lung. There was no change from the x- ray when compared to the imaging performed in 2018. Continue to use your respiratory inhalers as prescribed by your physician. At this time I do not believe that you need an antibiotic as you do not have a fever and your white blood cell count was normal and your blood work. I do recommend following up with your anesthesiology crna due to your significant respiratory history to include pulmonary asbestosis, emphysema, COPD if you continue to have a productive cough. Please seek medical attention for fever, shortness of breath that is different from your normal, chest pain, bloody sputum or other worsening signs or symptoms. Bronchitis You have acute bronchitis. This disease is an infection or inflammation of the air passageways in your lungs. Symptoms usually include cough, low grade fever, shortness of breath, and wheezing. The cough usually persists for a couple of weeks. Most cases of bronchitis get better without antibiotics. We prescribe antibiotics when we believe bacteria are damaging your airways, or if there's high risk the bronchitis will worsen into pneumonia. Increase your fluid intake. A cool mist humidifier may make your lungs more comfortable. An expectorant (cough medicine that loosens phlegm) can help. If you smoke, STOP!!! Recovery from bronchitis can be somewhat slow, but you should see improvement within a day or two. Repeated episodes of bronchitis may result in lung damage -- for example, chronic bronchitis, recurrent pneumonias, or emphysema. Call the doctor if you develop increasing fever, shortness of breath, chest pain, bloody sputum, or otherwise worsen. If you have not improved at all after several days, contact the physician. Prescriptions: Benzonatate [Tessalon Perles 100 mg Capsule] 100 mg PO Q8HP PRN #20 capsule PRN Reason: Referrals: YISEL HOLLINGSWORTH MD [Primary Care Provider] - Follow up as needed
[2018-10-05 12:28] VITALS: BP 102/64
== END 2018-10-05 12:40 | disposition home or self-care (01) ==
LOC: ER 10:14
DX: J43.9 Emphysema, unspecified (principal); R05 Cough; I25.10 Atherosclerotic heart disease of native coronary artery without angina pectoris; I10 Essential (primary) hypertension
CPT/HCPCS: 94640; 99283; 36415; 85025; 80048; 83880; 71046; J7620

== ENCOUNTER 2018-11-13 08:23 | Emergency (ER) | payer OTHER, MEDICARE, MEDICAID ==
[2018-11-13 09:21] LABS: VENOUS BLOOD BASE EXCESS -1.5 mmol/L; VENOUS BLOOD HCO3 24.2 mmol/L (20-32); VENOUS BLOOD PCO2 44.2 mmHg (35-63); VENOUS BLOOD PH 7.36 (7.30-7.42)
[2018-11-13 09:29] LABS: HEMATOCRIT 36.6 % (37.9-51.0); HEMOGLOBIN 12.2 g/dL (13.5-17.0); MEAN CORPUSCULAR HEMOGLOBIN 32.1 pg (27.0-33.4); MEAN CORPUSCULAR HGB CONC 33.4 g/dL (32.0-36.0); MEAN CORPUSCULAR VOLUME 96 fl (80-97); PLATELET COUNT 143 10^3/uL (150-450); RED BLOOD COUNT 3.81 10^6/uL (4.35-5.55); RED CELL DISTRIBUTION WIDTH 14.9 % (11.5-14.0); WHITE BLOOD COUNT 10.1 10^3/uL (4.0-10.5)
[2018-11-13 09:44] LABS: ALBUMIN 3.7 g/dL (3.5-5.0); ALKALINE PHOSPHATASE 47 U/L (38-126); ANION GAP 10 (5-19); ASPARTATE AMINO TRANSFERASE 36 U/L (17-59); BILIRUBIN,DIRECT 0.1 mg/dL (0.0-0.4); BILIRUBIN,TOTAL 1.3 mg/dL (0.2-1.3); BLOOD UREA NITROGEN 16 mg/dL (7-20); CALCIUM 8.6 mg/dL (8.4-10.2); CARBON DIOXIDE 24 mmol/L (22-30); CHLORIDE 104 mmol/L (98-107); GLUCOSE 111 mg/dL (75-110); POTASSIUM 4.4 mmol/L (3.6-5.0); TOTAL PROTEIN 5.9 g/dL (6.3-8.2)
[2018-11-13 09:47] LABS: ABSOLUTE LYMPHOCYTES# (MANUAL) 0.4 10^3/uL (0.5-4.7); ABSOLUTE MONOCYTES # (MANUAL) 0.6 10^3/uL (0.1-1.4); BASOPHILS % (MANUAL) 1 % (0-2); EOSINOPHILS % (MANUAL) 0 % (0-6); LYMPHOCYTES % (MANUAL) 4 % (13-45); MONOCYTES % (MANUAL) 6 % (3-13); SEGMENTED NEUTROPHILS % (MAN) 89 % (42-78); TOTAL CELLS COUNTED 100
[2018-11-13 09:48] LABS: ANISOCYTOSIS SLIGHT; PLATELET COMMENT DECREASED; TOXIC GRANULATION SLIGHT
[2018-11-13] MEDS ORDERED: ASPIRIN 325 MG TABLET PO ONE (10:18)
--- NOTE | 2018-11-13 10:20 | RADIOLOGY REPORT (SQ) ---
EXAM DESCRIPTION: CHEST SINGLE VIEW COMPLETED DATE/TIME: 11/13/2018 9:27 am REASON FOR STUDY: Dyspnea, Productive Cough, Hypoxia COMPARISON: 10/05/2018 TECHNIQUE: Single frontal radiographic view of the chest acquired. NUMBER OF VIEWS: One view. LIMITATIONS: None. FINDINGS: LUNGS AND PLEURA: No pneumothorax. No consolidation or pleural effusion. Similar intersti tial-nodular changes and pleural calcifications. MEDIASTINUM AND HILAR STRUCTURES: Stable. HEART AND VASCULAR STRUCTURES: Stable. BONES: No acute findings. HARDWARE: None in the chest. OTHER: No other significant finding. IMPRESSION: NO ACUTE FINDINGS. TECHNICAL DOCUMENTATION: JOB ID: [id number] [place]-72 2010 [employer]- All Rights Reserved Reading location - IP/workstation name: [facility] [email or web address] Away
--- NOTE | 2018-11-13 10:21 | EKG REPORT ---
SEVERITY:- BORDERLINE ECG - SINUS TACHYCARDIA BORDERLINE T ABNORMALITIES, INFERIOR LEADS : Confirmed by: Kyle London 13-Nov-2018 10:21:21
[2018-11-13] MEDS ORDERED: LEVOFLOXACIN 750 MG/D5W RTU 750 MG/150 ML RTUPB IV SCH (10:30)
[2018-11-13 10:32] LABS: INTERNATIONAL RATION (INR) 1.39; PROTHROMBIN TIME 17.2 SEC (11.4-15.4)
[2018-11-13] MEDS ORDERED: ATORVASTATIN CALCIUM 80 MG TABLET PO ONE (12:27)
[2018-11-13 12:59] LABS: APPEARANCE,URINE CLEAR; BILIRUBIN,URINE NEGATIVE (NEGATIVE); COLOR,URINE YELLOW; GLUCOSE, URINE NEGATIVE (NEGATIVE); KETONES,URINE NEGATIVE (NEGATIVE); LEUKOCYTE ESTERASE,URINE NEGATIVE (NEGATIVE); NITRITE,URINE NEGATIVE (NEGATIVE); PROTEIN,URINE 30 mg/dL (NEGATIVE); URINE SPECIFIC GRAVITY 1.018; UROBILINOGEN,URINE NEGATIVE mg/dL (<2.0)
--- NOTE | 2018-11-13 13:04 | ER Document Report ---
Entered by ALEAH CARVER SCRIBE 11/13/18 0851 Acting as scribe for:MATILDE GALVAN MD ED General - General Chief Complaint: Breathing Difficulty Stated Complaint: DIFFICULTY BREATHING Time Seen by Provider: 11/13/18 08:44 Primary Care Provider: MARTHA,BLAISE [Primary Care Provider] - Follow up as needed Notes: Patient is a 82-year-old male with history of asbestos arriving via EMS presenting to the emergency department complaining of difficulty breathing. Patient states that at 0 300 this morning he woke up and was having some shortness of breath, he laid back down. Patient states that he was woken up again at 0 630 with the same shortness of breath, and difficulty breathing. Patient states that for the past few weeks he has had a cough, with yellow phlegm intermittently. Nurse at bedside states that EMS recorded the patient's oxygen saturation at 90% on room air, they proceeded to give him O2. They also completed AAA treatment. Patient denies having any chest discomfort, e xperiencing a fever, or being ill recently. TRAVEL OUTSIDE OF THE [place] IN LAST 30 DAYS: No - Related Data Allergies/Adverse Reactions: Penicillins Allergy (Verified 10/05/18 10:15) pravastatin [Pravastatin] Allergy (Verified 10/05/18 10:15) Past Medical History - General Information source: Patient - Social History Smoking Status: Never Smoker Cigarette use (# per day): No Chew tobacco use (# tins/day): No Frequency of alcohol use: None Drug Abuse: None Family History: Reviewed & Not Pertinent Patient has suicidal ideation: No Patient has homicidal ideation: No - Past Medical History Cardiac Medical History: Reports: Hx DVT, Hx Hypercholesterolemia, Hx Hypertension Pulmonary Medical History: Reports: Hx Asthma, Hx COPD Musculoskeletal Medical History: Reports Hx Arthritis Past Surgical History: Reports: Hx Cardiac Catheterization, Hx Cardiac Surgery - Two cardiac stents - Immunizations Hx Pneumococcal Vaccination: 11/28/10 Review of Systems - Review of Systems Constitutional: No symptoms reported. denies: Fever EENT: No symptoms reported Cardiovascular: No symptoms reported. denies: Chest pain Respiratory: See HPI, Cough, Short of breath, Sputum - yellow Gastrointestinal: No symptoms reported Genitourinary: No symptoms reported Male Genitourinary: No symptoms reported Musculoskeletal: No symptoms reported Skin: No symptoms reported Hematologic/Lymphatic: No symptoms reported Neurological/Psychological: No symptoms reported -: Yes All other systems reviewed and negative Physical Exam - Vital signs Vitals: Temp Pulse Resp BP Pulse Ox 98.2 F 115 H 22 H 106/71 98 11/13/18 08:28 11/13/18 08:28 11/13/18 08:28 11/13/18 08:28 11/13/18 08:28 - Notes Notes: Physical Exam: General: Alert, appears well. HEENT: Normocephalic. Atraumatic. PERRL. Extraocular movements intact. Oropharynx clear. Neck: Supple. Non-tender. Respiratory: Breath sounds, but good air movement. No respiratory distress. Clear and equal breath sounds bilaterally. Cardiovascular: Regular rate and rhythm. Abdominal: Normal Inspection. Non-tender. No distension. Normal Bowel Sounds. Back: Non-tender. No deformity or step off. Extremities: Moves all four extremities. Upper extremities: Normal inspection. Normal ROM. Lower extremities: Normal inspection. No edema. Normal ROM. Neurological: Normal cognition. AAOx4. Normal speech. Psychological: Normal affect. Normal Mood. Skin: Warm. Dry. Normal color. Course - Re-evaluation Re-evalutation: 11/13/18 10:24 Patient found to have elevated troponin and absence of any chest pain. Chest x- ray shows no acute findings. Patient does have elevated lactate. Levaquin provided due to respiratory distress and cough congestion history. No concerning findings on EKG. 11/13/18 11:00 Patient's proBNP possibly 3000 points higher than it was 5 weeks ago. Discussed case with Dr. Redman. Patient will be admitted for presumed CHF exacerbation as well as possible infectious source. Levaquin provided in the emergency department. Blood cultures drawn. Patient does have elevated troponin but it is always high per chart review and has not had any chest pain associated with any of his past medical problems discussed today. Troponin leak secondary to CHF. 11/13/18 12:[address] Ward at [facility] who except patient. She advised to provide 80 mg of atorvastatin in the emergency department and have second troponin run. - Vital Signs Vital signs: Temp Pulse Resp BP Pulse Ox 98.2 F 115 H 23 H 101/74 100 11/13/18 08:28 11/13/18 08:28 11/13/18 12:00 11/13/18 12:00 11/13/18 12:00 - Laboratory Result Diagrams: 11/13/18 09:02 11/13/18 09:02 Laboratory results interpreted by me: 11/13/18 11/13/18 11/13/18 09:02 09:02 09:02 RBC 3.81 L Hgb 12.2 L Hct 36.6 L RDW 14.9 H Plt Count 143 L Seg Neuts % (Manual) 89 H Lymphocytes % (Manual) 4 L Abs Neuts (Manual) 9.0 H Abs Lymphs (Manual) 0.4 L PT 17.2 H Glucose 111 H Lactic Acid NT-Pro-B Natriuret Pep Total Protein 5.9 L Urine Protein 11/13/18 11/13/18 11/13/18 09:02 09:02 12:34 RBC Hgb Hct RDW Plt Count Seg Neuts % (Manual) Lymphocytes % (Manual) Abs Neuts (Manual) Abs Lymphs (Manual) PT Glucose Lactic Acid 2.2 H NT-Pro-B Natriuret Pep 4410 H Total Protein Urine Protein 30 H Discharge - Discharge Clinical Impression: NSTEMI (non-ST elevated myocardial infarction) Condition: Good Disposition: [facility] Admitting Provider: Sherine Referrals: [facility] [Primary Care Provider] - Follow up as needed I personally performed the services described in the documentation, reviewed and edited the documentation which was dictated to the scribe in my presence, and it accurately records my words and actions.
[2018-11-13 20:32] VITALS: BP 95/51
--- NOTE | 2018-11-13 20:40 | ER Document Report ---
Doctor's Note Notes: 11/13/18 20:30 Patient is an 82-year-old male who comes in complaining of shortness of breath. No chest pain. Troponin has been steadily rising. Patient has been waiting for a bed at [facility] for most of the day. Transport is here and patient is medically stable for transfer.
== END 2018-11-13 20:37 | disposition short-term general hospital (02) ==
LOC: ER 08:23
DX: I21.4 Non-ST elevation (NSTEMI) myocardial infarction (principal); J44.9 Chronic obstructive pulmonary disease, unspecified; R06.02 Shortness of breath; R05 Cough; I10 Essential (primary) hypertension; Z88.0 Allergy status to penicillin; Z88.8 Allergy status to other drugs, medicaments and biological substances; Z95.5 Presence of coronary angioplasty implant and graft
CPT/HCPCS: 93005; 99285; 96365; 96366; 36415; 87040; 87086; 85025; 85610; 80053; 81001; 84484; 82803; 83605; 83880; 71045; 93010; J1956

== ENCOUNTER 2019-09-23 10:16 | Inpatient (IN) | payer OTHER, MEDICARE ==
--- NOTE | 2019-09-23 10:55 | RADIOLOGY REPORT (SQ) ---
EXAM DESCRIPTION: CHEST SINGLE VIEW IMAGES COMPLETED DATE/TIME: 09/23/2019 10:34 am REASON FOR STUDY: shortness of breath COMPARISON: 11/13/2018 EXAM PARAMETERS: NUMBER OF VIEWS: One view. TECHNIQUE: Single frontal radiographic view of the chest acquired. RADIATION DOSE: NA LIMITATIONS: None. FINDINGS: LUNGS AND PLEURA: Small bilateral pleural effusions, increased from prior. Chronic inters titial changes with no definitive superimposed airspace disease. No pneumothorax. MEDIASTINUM AND HILAR STRUCTURES: No masses. Contour normal. HEART AND VASCULAR STRUCTURES: Normal heart size. Vascular calcifications. BONES: Interval sternotomy. HARDWARE: Sternotomy wires. OTHER: No other significant finding. IMPRESSION: Small bilateral pleural effusions, increased from prior. Chronic additional interstitial changes without definitive superimposed airspace disease. TECHNICAL DOCUMENTATION: JOB ID: [id number] 2010 [employer]- All Rights Reserved Reading location - IP/workstation name: [email or web address]
--- NOTE | 2019-09-23 13:31 | ER Document Report ---
ED General - General Chief Complaint: Arm Problem Stated Complaint: SHORT OF BREATH Time Seen by Provider: 09/23/19 12:13 Mode of Arrival: Ambulatory Information source: Patient Notes: Patient states that he fell 2 weeks ago injuring his right arm. Patient has been going to his doctor's office for wound checks. Patient states that when he was there today they were concerned about his exertional shortness of breath and advised him to come here for evaluation. Patient states that he has had shortness of breath for the past 4 months and that today his symptoms are no worse than normal. Patient is here because his doctor insisted. Patient denies any chest pain cough nausea or vomiting. Patient denies any fever. Patient states he was started on antibiotic to treat any potential infection to his injury to his arm. TRAVEL OUTSIDE OF THE [place] IN LAST 30 DAYS: No - HPI Onset: Other - 4 months Onset/Duration: Persistent Quality of pain: No pain Pain Level: Denies Associated symptoms: Shortness of breath. denies: Chest pain, Nonproductive cough, Productive cough, Fever, Vomiting Exacerbated by: Movement, Walking Relieved by: Remaining still Similar symptoms previously: Yes Recently seen / treated by doctor: Yes - Related Data Allergies/Adverse Reactions: Penicillins Allergy (Verified 10/05/18 10:15) pravastatin [Pravastatin] Allergy (Verified 10/05/18 10:15) Home Medications: potassium, aspirin, iron, Past Medical History - General Information source: Patient - Social History Smoking Status: Never Smoker Chew tobacco use (# tins/day): No Frequency of alcohol use: None Drug Abuse: None Occupation: none Lives with: Alone Family History: Reviewed & Not Pertinent - Past Medical History Cardiac Medical History: Reports: Hx Congestive Heart Failure, Hx Coronary Artery Disease, Hx DVT, Hx Hypercholesterolemia, Hx Hypertension Pulmonary Medical History: Reports: Hx Asthma, Hx COPD - Asbestosis Denies: Hx Tuberculosis Endocrine Medical History: Denies: Hx Diabetes Mellitus Type 1, Hx Diabetes Mellitus Type 2 Renal/ Medical History: Denies: Hx Peritoneal Dialysis Musculoskeletal Medical History: Reports Hx Arthritis Psychiatric Medical History: Denies: Hx Anxiety, Hx Depression Past Surgical History: Reports: Hx Cardiac Catheterization, Hx Cardiac Surgery - Two cardiac stents. Denies: Hx Pacemaker - Immunizations Hx Pneumococcal Vaccination: 11/28/10 Review of Systems - Review of Systems Constitutional: No symptoms reported. denies: Fever, Recent illness EENT: No symptoms reported Cardiovascular: Dyspnea. denies: Chest pain Respiratory: Short of breath. denies: Cough, Hurts to breathe Gastrointestinal: No symptoms reported. denies: Abdominal pain, Nausea, Vomiti ng Genitourinary: No symptoms reported Male Genitourinary: No symptoms reported Musculoskeletal: No symptoms reported. denies: Back pain, Leg swelling Skin: Other - Skin tear to right forearm Hematologic/Lymphatic: No symptoms reported Neurological/Psychological: No symptoms reported Physical Exam - Vital signs Vitals: Temp Resp BP Pulse Ox 97.8 F 17 125/81 96 09/23/19 10:50 09/23/19 10:50 09/23/19 10:50 09/23/19 10:50 - General General appearance: Appears well, Alert In distress: Mild - HEENT Head: Normocephalic, Atraumatic Eyes: Normal Conjunctiva: Normal Nasal: Normal Mouth/Lips: Normal Pharynx: Normal Neck: Normal, Supple - Respiratory Respiratory status: Tachypnea Chest status: Nontender Breath sounds: Rales - Right lower lobe. No: Nonproductive cough, Productive cough Chest palpation: Normal - Cardiovascular Rhythm: Regular. No: Tachycardia Heart sounds: S1 appreciated, S2 appreciated Pulses: Normal: Radial - Abdominal Inspection: Normal Distension: No distension Bowel sounds: Normal Tenderness: Nontender - Back Back: Normal, Nontender - Extremities General upper extremity: Tender - Right forearm tenderness General lower extremity: Normal inspection, Normal strength Shoulder: Normal, Nontender Arm: Tender - Tenderness with swollen area to the lateral aspect of distal right upper arm, Ecchymosis Elbow: Normal, Nontender Forearm: Tender - Tenderness, multiple skin tears with abrasions to the dorsal aspect of the right forearm, Abrasion, Ecchymosis Wrist: Normal, Nontender Hand: Nontender, Ecchymosis - Neurological Neuro grossly intact: Yes Cognition: Normal Mak[place] Coma Scale Eye Opening: Spontaneous Janie Coma Scale Verbal: Oriented Mak[place] Coma Scale Motor: Obeys Commands Makanda Coma Scale Total: 15 - Psychological Associated symptoms: Normal affect, Normal mood - Skin Skin Temperature: Warm Skin Moisture: Dry Skin Color: Ecchymosis - Right forearm Skin irregularity: other - Skin tears to right forearm Irregularity with: Swelling - Swollen area to distal right upper arm, Tenderness Course - Re-evaluation Re-evalutation: 09/23/19 13:31 Patient with swollen area to the distal right upper arm worrisome for possible hematoma, consulted with Dr. owens who agrees to evaluate surgery. 09/23/19 14:00 Dr. owens to room to evaluate patient, patient's chest x-ray reviewed, is co ncerned about right lower lobe pneumonia at this time. Suspects area to arm is a hematoma versus traumatized lipoma and is not worried about any abscess at this time. 09/23/19 15:15 Patient sitting at bedside without any tachypnea states that he is feeling great without complaints at this time. 09/23/19 16:21 Review of patient's previous records does demonstrate a history of CHF, patient had an echocardiogram 2 years ago with an EF of 60%. Patient also has an underlying history of DVT, PE and CAD. Patient has had stent placement as well as a heart catheterization in the past. Patient does admit to going to a lithographic platemaker in [place] as well as Dr. Blakely and saw Dr. Zuniga a week or 2 ago. Patient with elevated BNP over 5000 with a increase in his troponin of 0.084. Patient has had elevated troponins in the past and suspect likely troponin leak due to CHF. Patient with increase in creatinine as well as increased potassium. Patient is agreeable with admission at this time. Consulted with Dr. Bernardo regarding concern for need for admission, Dr. Bernardo agrees to come and evaluate patient. Advises holding Lasix dose at this time. - Vital Signs Vital signs: Temp Pulse Resp BP Pulse Ox 98.2 F 26 H 126/67 H 98 09/23/19 19:32 09/23/19 19:01 09/23/19 19:01 09/23/19 19:32 - Laboratory Result Diagrams: 09/23/19 14:04 09/23/19 14:04 Laboratory results interpreted by me: 09/23/19 09/23/19 09/23/19 14:04 14:04 14:04 RBC 3.46 L Hgb 11.6 L Hct 33.5 L MCH 33.5 H RDW 15.8 H Lymph % (Auto) 12.2 L ABG HCO3 Sodium 134.8 L Potassium 5.3 H BUN 22 H Creatinine 1.45 H Est GFR ( Amer) 56 L Est GFR (MDRD) Non-Af 46 L Magnesium 2.7 H Total Bilirubin 1.7 H NT-Pro-B Natriuret Pep 5230 H 09/23/19 14:04 RBC Hgb Hct MCH RDW Lymph % (Auto) ABG HCO3 24.6 H Sodium Potassium BUN Creatinine Est GFR ( Amer) Est GFR (MDRD) Non-Af Magnesium Total Bilirubin NT-Pro-B Natriuret Pep - Diagnostic Test Radiology reviewed: Image reviewed, Reports reviewed - EKG Interpretation by Me When compared to previous EKG there are: Changes noted Additional EKG results interpreted by me: 09/23/19 16:27 Heart rate of 83 with a QTC of 447, no acute ischemic changes, no ST elevation, no T wave inversion Discharge - Discharge Clinical Impression: Pleural effusion, Pulmonary asbestosis, Elevated troponin Dyspnea Qualifiers: Dyspnea type: dyspnea on exertion Qualified Code(s): R06.09 - Other forms of dyspnea Condition: Fair Disposition: ADMITTED INPATIENT Admitting Provider: [facility] (Hospitalist) Unit Admitted: Telemetry
[2019-09-23] MEDS ORDERED: AZITHROMYCIN 250 MG TABLET PO ONE (13:48)
[2019-09-23] MEDS ORDERED: CEFTRIAXONE 1 GM/D5W RTU 1 GM/50 ML RTUPB IV ONE (13:54)
[2019-09-23 14:57] LABS: ABSOLUTE EOSINOPHILS # (AUTO) 0.1 10^3/uL (0.0-0.6); ABSOLUTE LYMPHOCYTES (AUTO) 0.8 10^3/uL (0.5-4.7); ABSOLUTE MONOCYTES (AUTO) 0.8 10^3/uL (0.1-1.4); ABSOLUTE NEUT (AUTO) 4.9 10^3/uL (1.7-8.2); BASOPHILS % (AUTO) 0.6 % (0-2); EOSINOPHILS % (AUTO) 1.7 % (0-6); HEMATOCRIT 33.5 % (37.9-51.0); HEMOGLOBIN 11.6 g/dL (13.5-17.0); LYMPHOCYTES % (AUTO) 12.2 % (13-45); MEAN CORPUSCULAR HEMOGLOBIN 33.5 pg (27.0-33.4); MEAN CORPUSCULAR HGB CONC 34.6 g/dL (32.0-36.0); MEAN CORPUSCULAR VOLUME 97 fl (80-97); MONOCYTES % (AUTO) 11.9 % (3-13); PLATELET COUNT 166 10^3/uL (150-450); RED BLOOD COUNT 3.46 10^6/uL (4.35-5.55); RED CELL DISTRIBUTION WIDTH 15.8 % (11.5-14.0); SEGMENTED NEUTROPHILS % (AUTO) 73.6 % (42-78); TOTAL CELLS COUNTED % (AUTO) 100 %; WHITE BLOOD COUNT 6.6 10^3/uL (4.0-10.5)
[2019-09-23 15:01] LABS: ARTERIAL BLOOD BASE EXCESS 0.4 mmol/L; ARTERIAL BLOOD H2CO3 1.16 mmol/L (1.05-1.35); ARTERIAL BLOOD HCO3 24.6 mmol/L (20-24); ARTERIAL BLOOD O2 SATURATION 96.5 % (94-98); ARTERIAL BLOOD PCO2 38.5 mmHg (35-45); ARTERIAL BLOOD PH 7.42 (7.35-7.45); ARTERIAL BLOOD PO2 83.6 mmHg (80-100); ARTERIAL BLOOD TOTAL CO2 25.8 mmol/L (23-27)
[2019-09-23 15:02] LABS: ARTERIAL BLOOD FIO2 ROOM AIR
[2019-09-23 15:13] LABS: ALBUMIN 4.4 g/dL (3.5-5.0); ALKALINE PHOSPHATASE 90 U/L (38-126); ANION GAP 8 (5-19); ASPARTATE AMINO TRANSFERASE 34 U/L (17-59); BILIRUBIN,DIRECT 0.1 mg/dL (0.0-0.4); BILIRUBIN,TOTAL 1.7 mg/dL (0.2-1.3); BLOOD UREA NITROGEN 22 mg/dL (7-20); CALCIUM 9.7 mg/dL (8.4-10.2); CARBON DIOXIDE 27 mmol/L (22-30); CHLORIDE 100 mmol/L (98-107); GLUCOSE 88 mg/dL (75-110); POTASSIUM 5.3 mmol/L (3.6-5.0)
[2019-09-23 15:30] LABS: TROPONIN I 0.084 ng/mL
[2019-09-23] MEDS ORDERED: FUROSEMIDE INJ/PF 20 MG/2 ML SDV IV ONE (15:44)
[2019-09-23] MEDS ORDERED: IPRATROPIUM/ALBUTEROL 0.5-2.5 MG/3 ML AMPUL NEB PRN (17:13)
--- NOTE | 2019-09-23 17:39 | PDOC H&P ---
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 He said it has been going on for "a while," but he thinks is been getting progressively worse over the past month or so. He has a lot of dyspnea on exertion. He has not had any swelling of his legs. He has not had any cough. No fevers. He fell he got a skin tear on his right arm and had been going to [facility] to get the wound dressed. He said he was going to their office today and they saw that he was short of breath and so they sent him over to the emergency department. He has a chronically elevated BNP. His chest x- ray shows a bunch of chronic findings but nothing new. His creatinine is elevated a little bit above baseline. He said he is not been drinking as much fluids so he does not have to get up and go to the bathroom as often. Past Medical History Cardiac Medical History: Reports: DVT, Hyperlipidema, Hypertension Pulmonary Medical History: Reports: Asthma Denies: Chronic Obstructive Pulmonary Disease (COPD), Tuberculosis Endocrine Medical History: Denies: Diabetes Mellitus Type 1, Diabetes Mellitus Type 2 Musculoskeltal Medical History: Reports: Arthritis Psychiatric Medical History: Denies: Depression Past Surgical History Past Surgical History: Reports: Cardiac Catheterization Denies: Pacemaker Social History Smoking Status: Never Smoker Electronic Cigarette use?: No Frequency of Alcohol Use: None Hx Recreational Drug Use: No Hx Prescription Drug Abuse: No Family History Family History: Reviewed & Not Pertinent, CAD, COPD, Hyperlipidemia, Hypertension, Thyroid Disfunction Parental Family History Reviewed: Yes Children Family History Reviewed: Yes Sibling(s) Family History Reviewed.: Yes Medication/Allergy Home Medications: Albuterol Sulfate [Proair HFA Inhalation Aerosol 8.5 gm MDI] 2 puff IH Q6HP PRN 11/09/17 Budesonide/Formoterol Fumarate [Symbicort HFA 160-4.5 mcg Inhaler 6 gm] 2 puff IH Q12 11/09/17 Lisinopril [Prinivil 40 mg Tablet] 40 mg PO DAILY 11/09/17 Apixaban [Eliquis 5 mg Tablet] 5 mg PO Q12 30 Days #60 tablet 11/12/17 Aspirin [Ecotrin 81 mg EC Tablet] 81 mg PO DAILY #60 tabec 11/12/17 Benzonatate [Tessalon Perles 100 mg Capsule] 100 mg PO Q8HP PRN #20 capsule 10/05/18 Allergies/Adverse Reactions: Penicillins Allergy (Verified 10/05/18 10:15) pravastatin [Pravastatin] Allergy (Verified 10/05/18 10:15) Review of Systems All systems: reviewed and no additional remarkable complaints except as stated - All systems were reviewed and were negative except as noted in HPI Physical Exam Vital Signs: Temp Pulse Resp BP Pulse Ox 97.8 F 26 H 116/66 97 09/23/19 10:55 09/23/19 12:01 09/23/19 12:00 09/23/19 14:36 Intake & Output 09/22/19 09/23/19 09/24/19 06:59 06:59 06:59 Intake Total 50 Balance 50 Weight 68.9 kg General appearance: PRESENT: cooperative, disheveled, mild distress, thin Head exam: PRESENT: atraumatic, normocephalic Eye exam: PRESENT: EOMI, PERRLA. ABSENT: conjunctival injection, nystagmus, scleral icterus Ear exam: PRESENT: normal external ear exam Mouth exam: PRESENT: dry mucosa, neck supple Teeth exam: PRESENT: poor dentation Throat exam: ABSENT: post pharyngeal erythema Neck exam: ABSENT: carotid bruit, full ROM - Limited from arthritis, JVD, lymphadenopathy, meningismus, tenderness, thyromegaly Respiratory exam: PRESENT: clear to auscultation aga - Diminished, symmetrical. ABSENT: accessory muscle use, chest wall tenderness, crackles, prolonged expiratory phas, rhonchi, tachypnea, unlabored, wheezes Cardiovascular exam: PRESENT: RRR, +S1, +S2 Pulses: PRESENT: normal carotid pulses Vascular exam: PRESENT: normal capillary refill GI/Abdominal exam: PRESENT: normal bowel sounds, soft. ABSENT: distended, guarding, rebound, tenderness Extremities exam: ABSENT: pedal edema Musculoskeletal exam: PRESENT: ambulatory, normal inspection. ABSENT: deformity Neurological exam: PRESENT: alert, awake, oriented to person, oriented to place, oriented to situation, CN II-XII grossly intact. ABSENT: motor sensory deficit Psychiatric exam: PRESENT: appropriate affect, normal mood Skin exam: PRESENT: dry, warm Results Laboratory Results: 09/23/19 14:04 09/23/19 14:04 09/23/19 09/23/19 09/23/19 14:04 14:04 14:04 WBC 6.6 RBC 3.46 L Hgb 11.6 L Hct 33.5 L MCV 97 MCH 33.5 H MCHC 34.6 RDW 15.8 H Plt Count 166 Seg Neutrophils % 73.6 Carbonic Acid 1.16 HCO3/H2CO3 Ratio 21:1 ABG pH 7.42 ABG pCO2 38.5 ABG pO2 83.6 ABG HCO3 24.6 H ABG O2 Saturation 96.5 ABG Base Excess 0.4 FiO2 ROOM AIR Sodium 134.8 L Potassium 5.3 H Chloride 100 Carbon Dioxide 27 Anion Gap 8 BUN 22 H Creatinine 1.45 H Est GFR ( Amer) 56 L Glucose 88 Calcium 9.7 Magnesium 2.7 H Total Bilirubin 1.7 H AST 34 Alkaline Phosphatase 90 Total Protein 8.0 Albumin 4.4 09/23/19 14:04 Troponin I 0.084 NT-Pro-B Natriuret Pep 5230 H Impressions: Chest X-Ray 09/23/19 00:00 IMPRESSION: Small bilateral pleural effusions, increased from prior. Chronic additional interstitial changes without definitive superimposed airspace disease. 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 I am going to try to give him some steroids and nebulizer treatments to see if this will help him breathe a little bit easier. We will see if he qualifies for home oxygen before he leaves the hospital. (2) Coronary artery disease Qualifiers: Coronary Disease-Associated Artery/Lesion type: [place] artery [place] vs. transplanted heart: [place] heart Associated angina: without angina Qualified Code(s): I25.10 - Atherosclerotic heart disease of [place] coronary artery without angina pectoris Is this a current diagnosis for this admission?: Yes Plan: We will continue his home medications. We will try to get records to see exactly what type of surgery he had. The patient is not entirely sure if he had a stent placed or if he had bypass surgery along with an aortic valve replacement. (3) History of DVT (deep vein thrombosis) Is this a current diagnosis for this admission?: Yes Plan: Continue Eliquis (4) Hypertension Qualifiers: Hypertension type: essential hypertension Qualified Code(s): I10 - Essential (primary) hypertension Is this a current diagnosis for this admission?: Yes Plan: We will continue his home medications. We will probably hold his lisinopril until his creatinine and potassium improved. (5) Pulmonary asbestosis Is this a current diagnosis for this admission?: Yes Plan: He is on Symbicort and as needed albuterol inhaler at home (6) Acute kidney injury Is this a current diagnosis for this admission?: Yes Plan: We will gently hydrate and monitor urine output and electrolytes (7) Hyperkalemia Is this a current diagnosis for this admission?: Yes Plan: Anticipate that this should improve with some IV fluids (8) Aortic stenosis Qualifiers: Cardiac valve disease etiology: etiology unspecified Qualified Code(s): I35.0 - Nonrheumatic aortic (valve) stenosis Is this a current diagnosis for this admission?: Yes Plan: As previously noted, will attempt to find records to see if he had his aortic valve replaced - Time Time Spent with patient: 35 or more minutes - Inpatient Certification Based on my medical assessment, after consideration of the patient's comorbidities, presenting symptoms, or acuity I expect that the services needed warrant INPATIENT care.: Yes I certify that my determination is in accordance with my understanding of Medicare's requirements for reasonable and necessary INPATIENT services [42 CFR 412.3e].: Yes Medical Necessity: Significant Comorbidiites Make Outpatient Treatment Too Risky, Need Close Monitoring Due to Risk of Patient Decompensation, Need For IV Fluids, Need For Continuous Telemetry Monitoring, Need for Nebulizer Therapy and Monitoring of Response, Risk of Complication if Not Cared For in Hospital
[2019-09-23] MEDS: METHYLPREDNISOLONE INJ 40 MG/1 ML SDV IV SCH (19:25)
[2019-09-23] MEDS: NORMAL SALINE 1000 ML 1,000 ML IV PRN (19:26)
--- NOTE | 2019-09-23 19:27 | EKG REPORT ---
SEVERITY:- ABNORMAL ECG - SINUS RHYTHM ABNRM R PROG, CONSIDER ASMI OR LEAD PLACEMENT : Confirmed by: Kyle London 23-Sep-2019 19:26:31
[2019-09-24] MEDS: METHYLPREDNISOLONE INJ 40 MG/1 ML SDV IV SCH ×3 (02:01→17:00)
[2019-09-24 06:38] LABS: ANION GAP 7 (5-19); BLOOD UREA NITROGEN 25 mg/dL (7-20); CALCIUM 8.9 mg/dL (8.4-10.2); CARBON DIOXIDE 22 mmol/L (22-30); CHLORIDE 104 mmol/L (98-107); GLUCOSE 158 mg/dL (75-110)
[2019-09-24] MEDS: NORMAL SALINE 1000 ML 1,000 ML IV PRN ×2 (06:46→16:59)
[2019-09-24] MEDS ORDERED: IPRATROPIUM PO PRN (12:28)
[2019-09-24] MEDS ORDERED: ALBUTEROL SULFATE PO PRN (12:28)
[2019-09-24] MEDS ORDERED: [UNRECOGNIZED DRUG - OTHER] PO PRN (12:28)
--- NOTE | 2019-09-24 12:48 | PDOC PROGRESS REPORT ---
Subjective Progress Note for:: 09/24/19 Subjective:: No adverse events overnight. No new complaints. Vital signs been stable. He is comfortable at rest but any exertion causes him to get very short of breath. He said he be interested in getting into an assisted living facility because he says just getting his clothes on every day requires a lot of effort. Reason For Visit: DYSPNEA,PLEURAL EFFUSION,PULMONARY ASBESTOSIS Physical Exam Vital Signs: Temp Pulse Resp BP Pulse Ox 97.7 F 89 25 H 118/61 98 09/24/19 12:08 09/24/19 12:08 09/24/19 12:08 09/24/19 12:08 09/24/19 12:08 Intake & Output 09/23/19 09/24/19 09/25/19 06:59 06:59 06:59 Intake Total 1050 240 Output Total 100 Balance 950 240 Weight 67.9 kg General appearance: PRESENT: cooperative, disheveled, no apparent distress, thin Respiratory exam: PRESENT: clear to auscultation aga - Diminished, symmetrical. ABSENT: accessory muscle use, chest wall tenderness, crackles, prolonged expiratory phase, rhonchi, tachypnea, unlabored, wheezes Cardiovascular exam: PRESENT: RRR, +S1, +S2 Pulses: PRESENT: normal carotid pulses Vascular exam: PRESENT: normal capillary refill GI/Abdominal exam: PRESENT: normal bowel sounds, soft. ABSENT: distended, guarding, rebound, tenderness Extremities exam: ABSENT: pedal edema Musculoskeletal exam: PRESENT: ambulatory, normal inspection. ABSENT: deformity Neurological exam: PRESENT: alert, awake, oriented to person, oriented to place, oriented to situation Psychiatric exam: PRESENT: appropriate affect, normal mood Skin exam: PRESENT: dry, warm Results Laboratory Results: 09/23/19 14:04 09/24/19 05:44 09/23/19 09/23/19 09/23/19 14:04 14:04 14:04 WBC 6.6 RBC 3.46 L Hgb 11.6 L Hct 33.5 L MCV 97 MCH 33.5 H MCHC 34.6 RDW 15.8 H Plt Count 166 Seg Neutrophils % 73.6 Carbonic Acid 1.16 HCO3/H2CO3 Ratio 21:1 ABG pH 7.42 ABG pCO2 38.5 ABG pO2 83.6 ABG HCO3 24.6 H ABG O2 Saturation 96.5 ABG Base Excess 0.4 FiO2 ROOM AIR Sodium 134.8 L Potassium 5.3 H Chloride 100 Carbon Dioxide 27 Anion Gap 8 BUN 22 H Creatinine 1.45 H Est GFR ( Amer) 56 L Glucose 88 Calcium 9.7 Magnesium 2.7 H Total Bilirubin 1.7 H AST 34 Alkaline Phosphatase 90 Total Protein 8.0 Albumin 4.4 09/24/19 05:44 WBC RBC Hgb Hct MCV MCH MCHC RDW Plt Count Seg Neutrophils % Carbonic Acid HCO3/H2CO3 Ratio ABG pH ABG pCO2 ABG pO2 ABG HCO3 ABG O2 Saturation ABG Base Excess FiO2 Sodium 133.1 L Potassium 5.0 Chloride 104 Carbon Dioxide 22 Anion Gap 7 BUN 25 H Creatinine 1.07 Est GFR ( Amer) > 60 Glucose 158 H Calcium 8.9 Magnesium 2.5 H Total Bilirubin AST Alkaline Phosphatase Total Protein Albumin 09/23/19 14:04 Troponin I 0.084 NT-Pro-B Natriuret Pep 5230 H Impressions: Chest X-Ray 09/23/19 00:00 IMPRESSION: Small bilateral pleural effusions, increased from prior. Chronic additional interstitial changes without definitive superimposed airspace disease. Assessment and Plan - Diagnosis (1) COPD with acute exacerbation Is this a current diagnosis for this admission?: Yes Plan: We will continue steroids and bronchodilators. I have resumed his home medications. 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 (2) Coronary artery disease Qualifiers: Coronary Disease-Associated Artery/Lesion type: [place] artery [place] vs. t ransplanted heart: [place] heart Associated angina: without angina Qualified Code(s): I25.10 - Atherosclerotic heart disease of [place] coronary artery without angina pectoris Is this a current diagnosis for this admission?: Yes Plan: We will continue his home medications. We will try to get records to see exactly what type of surgery he had. The patient is not entirely sure if he had a stent placed or if he had bypass surgery along with an aortic valve replacement. (3) History of DVT (deep vein thrombosis) Is this a current diagnosis for this admission?: Yes Plan: Continue Eliquis (4) Hypertension Qualifiers: Hypertension type: essential hypertension Qualified Code(s): I10 - Essential (primary) hypertension Is this a current diagnosis for this admission?: Yes Plan: We will continue his home medications. (5) Pulmonary asbestosis Is this a current diagnosis for this admission?: Yes Plan: He is on Symbicort and as needed albuterol inhaler at home. He has chronic fibrosis and I do not know if this is going to get any better, it is unlikely that it will. He has a lot of trouble performing his ADLs and is interested in assisted living. (6) Acute kidney injury Is this a current diagnosis for this admission?: Yes Plan: Resolved (7) Hyperkalemia Is this a current diagnosis for this admission?: Yes Plan: Resolved (8) Aortic stenosis Qualifiers: Cardiac valve disease etiology: etiology unspecified Qualified Code(s): I35.0 - Nonrheumatic aortic (valve) stenosis Is this a current diagnosis for this admission?: Yes Plan: As previously noted, will attempt to find records to see if he had his aortic valve replaced - Time Time Spent with patient: 25-34 minutes
[2019-09-24] MEDS: FLUTICASONE/VILANTEROL 200-25 MCG/DOSE IH SCH (16:53)
[2019-09-24] MEDS: ATORVASTATIN CALCIUM 20 MG TABLET PO SCH (21:27)
[2019-09-25] MEDS: METHYLPREDNISOLONE INJ 40 MG/1 ML SDV IV SCH ×3 (01:06→17:07)
[2019-09-25] MEDS ORDERED: GUAIFENESIN SYRP 200 MG/10 ML UDC PO PRN (04:17)
[2019-09-25 06:25] LABS: ANION GAP 6 (5-19); BLOOD UREA NITROGEN 26 mg/dL (7-20); CALCIUM 8.6 mg/dL (8.4-10.2); CARBON DIOXIDE 21 mmol/L (22-30); CHLORIDE 108 mmol/L (98-107); GLUCOSE 146 mg/dL (75-110); POTASSIUM 4.5 mmol/L (3.6-5.0)
[2019-09-25] MEDS ORDERED: (PENDING PHARMACY ID) (Losartan Potassium [Losartan Potassium] 100 MG) PO SCH (10:00)
[2019-09-25] MEDS: FERROUS SULFATE 325 MG TABLET PO SCH (10:15)
[2019-09-25] MEDS: LOSARTAN POTASSIUM 50 MG TABLET PO SCH (10:15)
[2019-09-25] MEDS: FLUTICASONE/VILANTEROL 200-25 MCG/DOSE IH SCH (10:19)
--- NOTE | 2019-09-25 16:00 | PDOC PROGRESS REPORT ---
Subjective Progress Note for:: 09/25/19 Subjective:: No adverse events overnight. No new complaints. Vital signs been stable. He is comfortable at rest, says he feels like his breathing is getting a little bit better. He is not tried to get up and move around too much today. Reason For Visit: DYSPNEA,PLEURAL EFFUSION,PULMONARY ASBESTOSIS Physical Exam Vital Signs: Temp Pulse Resp BP Pulse Ox 97.7 F 82 25 H 124/79 96 09/25/19 11:24 09/25/19 11:24 09/25/19 11:24 09/25/19 11:24 09/25/19 11:24 Intake & Output 09/24/19 09/25/19 09/26/19 06:59 06:59 06:59 Intake Total 1050 2200 1240 Output Total 100 1050 300 Balance 950 1150 940 Weight 67.9 kg 67.9 kg General appearance: PRESENT: cooperative, disheveled, no apparent distress, thin Respiratory exam: PRESENT: clear to auscultation aga - Diminished, symmetrical. ABSENT: accessory muscle use, chest wall tenderness, crackles, prolonged expiratory phase, rhonchi, tachypnea, unlabored, wheezes Cardiovascular exam: PRESENT: RRR, +S1, +S2 Pulses: PRESENT: normal carotid pulses Vascular exam: PRESENT: normal capillary refill GI/Abdominal exam: PRESENT: normal bowel sounds, soft. ABSENT: distended, guarding, rebound, tenderness Extremities exam: ABSENT: pedal edema Musculoskeletal exam: PRESENT: ambulatory, normal inspection. ABSENT: deformity Neurological exam: PRESENT: alert, awake, oriented to person, oriented to place, oriented to situation Psychiatric exam: PRESENT: appropriate affect, normal mood Skin exam: PRESENT: dry, warm Results Laboratory Results: 09/23/19 14:04 09/25/19 05:10 09/25/19 05:10 Sodium 134.6 L Potassium 4.5 Chloride 108 H Carbon Dioxide 21 L Anion Gap 6 BUN 26 H Creatinine 0.94 Est GFR ( Amer) > 60 Glucose 146 H Calcium 8.6 09/23/19 14:04 Troponin I 0.084 NT-Pro-B Natriuret Pep 5230 H Impressions: Chest X-Ray 09/23/19 00:00 IMPRESSION: Small bilateral pleural effusions, increased from prior. Chronic additional interstitial changes without definitive superimposed airspace disease. Assessment and Plan - Diagnosis (1) COPD with acute exacerbation Is this a current diagnosis for this admission?: Yes Plan: We will continue steroids and bronchodilators. I have resumed his home medications. 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 (2) Coronary artery disease Qualifiers: Coronary Disease-Associated Artery/Lesion type: [place] artery [place] vs. transplanted heart: [place] heart Associated angina: without angina Qualified Code(s): I25.10 - Atherosclerotic heart disease of [place] coronary artery without angina pectoris Is this a current diagnosis for this admission?: Yes Plan: We will continue his home medications. We will try to get records to see exactly what type of surgery he had. The patient is not entirely sure if he had a stent placed or if he had bypass surgery along with an aortic valve replacement. (3) History of DVT (deep vein thrombosis) Is this a current diagnosis for this admission?: Yes Plan: Continue Eliquis (4) Hypertension Qualifiers: Hypertension type: essential hypertension Qualified Code(s): I10 - Essential (primary) hypertension Is this a current diagnosis for this admission?: Yes Plan: We will continue his home medications. (5) Pulmonary asbestosis Is this a current diagnosis for this admission?: Yes Plan: He is on Symbicort and as needed albuterol inhaler at home. He has chronic fibrosis and I do not know if this is going to get any better, it is unlikely that it will. He has a lot of trouble performing his ADLs and is interested in assisted living. (6) Acute kidney injury Is this a current diagnosis for this admission?: Yes Plan: Resolved (7) Hyperkalemia Is this a current diagnosis for this admission?: Yes Plan: Resolved (8) Aortic stenosis Qualifiers: Cardiac valve disease etiology: etiology unspecified Qualified Code(s): I35.0 - Nonrheumatic aortic (valve) stenosis Is this a current diagnosis for this admission?: Yes Plan: As previously noted, will attempt to find records to see if he had his aortic valve replaced - Time Time Spent with patient: 15-24 minutes
[2019-09-25] MEDS: ATORVASTATIN CALCIUM 20 MG TABLET PO SCH (21:29)
[2019-09-26] MEDS: METHYLPREDNISOLONE INJ 40 MG/1 ML SDV IV SCH ×3 (01:22→17:08)
[2019-09-26 07:31] LABS: BLOOD UREA NITROGEN 31 mg/dL (7-20); CALCIUM 8.8 mg/dL (8.4-10.2); CARBON DIOXIDE 23 mmol/L (22-30); CHLORIDE 109 mmol/L (98-107); GLUCOSE 136 mg/dL (75-110); POTASSIUM 4.6 mmol/L (3.6-5.0)
[2019-09-26 07:33] LABS: ANION GAP 4 (5-19)
[2019-09-26] MEDS: FERROUS SULFATE 325 MG TABLET PO SCH (09:02)
[2019-09-26] MEDS: LOSARTAN POTASSIUM 50 MG TABLET PO SCH (09:02)
[2019-09-26] MEDS: FLUTICASONE/VILANTEROL 200-25 MCG/DOSE IH SCH (09:03)
--- NOTE | 2019-09-26 14:15 | PDOC PROGRESS REPORT ---
Subjective Progress Note for:: 09/26/19 Subjective:: No adverse events overnight. No new complaints. He said he is feeling a little bit better he is coughing up some phlegm but he still gets short of breath with the least exertion. If it a hard time picking up his heart rate on the monitor and often it looks like he is in asystole when really his heart rates in the 80s. He also when he exerts himself his heart rate shoots up really high but it always recovers. On the monitor his heart rate is been bouncing around some today but has been asymptomatic. Reason For Visit: DYSPNEA,PLEURAL EFFUSION,PULMONARY ASBESTOSIS Physical Exam Vital Signs: Temp Pulse Resp BP Pulse Ox 97.4 F 82 24 H 114/62 99 09/26/19 11:44 09/26/19 11:44 09/26/19 11:44 09/26/19 11:44 09/26/19 11:44 Intake & Output 09/25/19 09/26/19 09/27/19 06:59 06:59 06:59 Intake Total 2200 2040 240 Output Total 1050 1525 Balance 1150 515 240 Weight 67.9 kg 68.1 kg General appearance: PRESENT: cooperative, disheveled, no apparent distress, thin Respiratory exam: PRESENT: clear to auscultation aga - Diminished, symmetrical. ABSENT: accessory muscle use, chest wall tenderness, crackles, prolonged expiratory phase, rhonchi, tachypnea, unlabored, wheezes Cardiovascular exam: PRESENT: RRR with some occasional irregular beats, +S1, +S2 Pulses: PRESENT: normal carotid pulses Vascular exam: PRESENT: normal capillary refill GI/Abdominal exam: PRESENT: normal bowel sounds, soft. ABSENT: distended, guarding, rebound, tenderness Extremities exam: ABSENT: pedal edema Musculoskeletal exam: PRESENT: ambulatory, normal inspection. ABSENT: deformity Neurological exam: PRESENT: alert, awake, oriented to person, oriented to place, oriented to situation Psychiatric exam: PRESENT: appropriate affect, normal mood Skin exam: PRESENT: dry, warm Results Laboratory Results: 09/23/19 14:04 09/26/19 06:15 09/26/19 06:15 Sodium 136.2 L Potassium 4.6 Chloride 109 H Carbon Dioxide 23 Anion Gap 4 L BUN 31 H Creatinine 0.95 Est GFR ( Amer) > 60 Glucose 136 H Calcium 8.8 09/23/19 14:04 Troponin I 0.084 NT-Pro-B Natriuret Pep 5230 H Impressions: Chest X-Ray 09/23/19 00:00 IMPRESSION: Small bilateral pleural effusions, increased from prior. Chronic additional interstitial changes without definitive superimposed airspace disease. Assessment and Plan - Diagnosis (1) COPD with acute exacerbation Is this a current diagnosis for this admission?: Yes Plan: We will continue steroids and bronchodilators. I have resumed his home medications. 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 (2) Coronary artery disease Qualifiers: Coronary Disease-Associated Artery/Lesion type: [place] artery [place] vs. transplanted heart: [place] heart Associated angina: without angina Qualified Code(s): I25.10 - Atherosclerotic heart disease of [place] coronary artery without angina pectoris Is this a current diagnosis for this admission?: Yes Plan: We will continue his home medications. We will try to get records to see exactly what type of surgery he had. The patient is not entirely sure if he had a stent placed or if he had bypass surgery along with an aortic valve replacement. (3) History of DVT (deep vein thrombosis) Is this a current diagnosis for this admission?: Yes Plan: Continue Eliquis (4) Hypertension Qualifiers: Hypertension type: essential hypertension Qualified Code(s): I10 - Essential (primary) hypertension Is this a current diagnosis for this admission?: Yes Plan: We will continue his home medications. (5) Pulmonary asbestosis Is this a current diagnosis for this admission?: Yes Plan: He is on Symbicort and as needed albuterol inhaler at home. He has chronic fibrosis and I do not know if this is going to get any better, it is unlikely that it will. He has a lot of trouble performing his ADLs and is interested in assisted living. Case management has been consulted. (6) Acute kidney injury Is this a current diagnosis for this admission?: Yes Plan: Resolved (7) Hyperkalemia Is this a current diagnosis for this admission?: Yes Plan: Resolved (8) Aortic stenosis Qualifiers: Cardiac valve disease etiology: etiology unspecified Qualified Code(s): I35.0 - Nonrheumatic aortic (valve) stenosis Is this a current diagnosis for this admission?: Yes Plan: As previously noted, will attempt to find records to see if he had his aortic v alve replaced - Time Time Spent with patient: 15-24 minutes
[2019-09-26] MEDS: ATORVASTATIN CALCIUM 20 MG TABLET PO SCH (23:32)
[2019-09-27] MEDS: METHYLPREDNISOLONE INJ 40 MG/1 ML SDV IV SCH ×3 (03:28→17:46)
[2019-09-27] MEDS: FERROUS SULFATE 325 MG TABLET PO SCH (09:51)
[2019-09-27] MEDS: FLUTICASONE/VILANTEROL 200-25 MCG/DOSE IH SCH (09:51)
[2019-09-27] MEDS: LOSARTAN POTASSIUM 50 MG TABLET PO SCH (09:51)
--- NOTE | 2019-09-27 17:25 | PDOC PROGRESS REPORT ---
Subjective Progress Note for:: 09/27/19 Subjective:: No adverse events overnight. No new complaints. He said he is feeling a little bit better. He is able to sit up on the edge of the bed and eat a little bit. He takes breaks while he is eating to help with his breathing. Reason For Visit: DYSPNEA,PLEURAL EFFUSION,PULMONARY ASBESTOSIS Physical Exam Vital Signs: Temp Pulse Resp BP Pulse Ox 97.5 F 115 H 18 112/68 99 09/27/19 13:18 09/27/19 14:00 09/27/19 13:18 09/27/19 13:18 09/27/19 13:18 Intake & Output 09/26/19 09/27/19 09/28/19 06:59 06:59 06:59 Intake Total 2040 240 1489 Output Total 1525 300 300 Balance 515 -60 1189 Weight 68.1 kg 68.8 kg General appearance: PRESENT: cooperative, disheveled, no apparent distress, thin Respiratory exam: PRESENT: clear to auscultation aga - Diminished, symmetrical. ABSENT: accessory muscle use, chest wall tenderness, crackles, prolonged expiratory phase, rhonchi, tachypnea, unlabored, wheezes Cardiovascular exam: PRESENT: RRR with some occasional irregular beats, +S1, +S2 Pulses: PRESENT: normal carotid pulses Vascular exam: PRESENT: normal capillary refill GI/Abdominal exam: PRESENT: normal bowel sounds, soft. ABSENT: distended, guarding, rebound, tenderness Extremities exam: ABSENT: pedal edema Musculoskeletal exam: PRESENT: ambulatory, normal inspection. ABSENT: deformity Neurological exam: PRESENT: alert, awake, oriented to person, oriented to place, oriented to situation Psychiatric exam: PRESENT: appropriate affect, normal mood Skin exam: PRESENT: dry, warm Results Laboratory Results: 09/23/19 14:04 09/26/19 06:15 09/23/19 14:04 Troponin I 0.084 NT-Pro-B Natriuret Pep 5230 H Impressions: Chest X-Ray 09/23/19 00:00 IMPRESSION: Small bilateral pleural effusions, increased from prior. Chronic additional interstitial changes without definitive superimposed airspace disease. Assessment and Plan - Diagnosis (1) COPD with acute exacerbation Is this a current diagnosis for this admission?: Yes Plan: We will continue steroids and bronchodilators. I have resumed his home medications. 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 We will continue his steroids for another day and then they can be stopped. (2) Coronary artery disease Qualifiers: Coronary Disease-Associated Artery/Lesion type: [place] artery [place] vs. transplanted heart: [place] heart Associated angina: without angina Qualified Code(s): I25.10 - Atherosclerotic heart disease of [place] coronary artery without angina pectoris Is this a current diagnosis for this admission?: Yes Plan: We will continue his home medications. We will try to get records to see exactly what type of surgery he had. The patient is not entirely sure if he had a stent placed or if he had bypass surgery along with an aortic valve replacement. (3) History of DVT (deep vein thrombosis) Is this a current diagnosis for this admission?: Yes Plan: Continue Eliquis (4) Hypertension Qualifiers: Hypertension type: essential hypertension Qualified Code(s): I10 - E ssential (primary) hypertension Is this a current diagnosis for this admission?: Yes Plan: We will continue his home medications. (5) Pulmonary asbestosis Is this a current diagnosis for this admission?: Yes Plan: He is on Symbicort and as needed albuterol inhaler at home. He has chronic fibrosis and I do not know if this is going to get any better, it is unlikely that it will. He has a lot of trouble performing his ADLs and is interested in assisted living. Case management has been consulted. (6) Acute kidney injury Is this a current diagnosis for this admission?: Yes Plan: Resolved (7) Hyperkalemia Is this a current diagnosis for this admission?: Yes Plan: Resolved (8) Aortic stenosis Qualifiers: Cardiac valve disease etiology: etiology unspecified Qualified Code(s): I35.0 - Nonrheumatic aortic (valve) stenosis Is this a current diagnosis for this admission?: Yes Plan: As previously noted, will attempt to find records to see if he had his aortic valve replaced - Time Time Spent with patient: 15-24 minutes
[2019-09-27] MEDS: ATORVASTATIN CALCIUM 20 MG TABLET PO SCH (22:08)
[2019-09-28] MEDS: METHYLPREDNISOLONE INJ 40 MG/1 ML SDV IV SCH ×3 (02:00→15:08)
[2019-09-28] MEDS: LOSARTAN POTASSIUM 50 MG TABLET PO SCH ×2 (09:40→21:52)
[2019-09-28] MEDS: FERROUS SULFATE 325 MG TABLET PO SCH (09:41)
[2019-09-28] MEDS: FLUTICASONE/VILANTEROL 200-25 MCG/DOSE IH SCH (09:41)
--- NOTE | 2019-09-28 13:11 | PDOC PROGRESS REPORT ---
Subjective Progress Note for:: 09/28/19 Subjective:: The patient reports that he still feels short of breath. He is still on nasal cannula. He believes he is not as tachypneic as he previously was. Reason For Visit: DYSPNEA,PLEURAL EFFUSION,PULMONARY ASBESTOSIS Physical Exam Vital Signs: Temp Pulse Resp BP Pulse Ox 97.6 F 79 16 106/86 H 100 09/28/19 12:00 09/28/19 12:00 09/28/19 12:00 09/28/19 12:00 09/28/19 12:00 Intake & Output 09/27/19 09/28/19 09/29/19 06:59 06:59 06:59 Intake Total 240 2337 Output Total 300 855 Balance -60 1482 Weight 68.8 kg 70.4 kg General appearance: PRESENT: cooperative, mild distress, well-developed Head exam: PRESENT: atraumatic, normocephalic Ear exam: PRESENT: normal external ear exam. ABSENT: bleeding, drainage Teeth exam: PRESENT: poor dentation Respiratory exam: PRESENT: rales - Fine rales on the right, symmetrical, tachypnea. ABSENT: wheezes Cardiovascular exam: PRESENT: RRR, +S1, +S2, systolic murmur - 2/6. ABSENT: diastolic murmur, irregular rhythm GI/Abdominal exam: PRESENT: normal bowel sounds, soft. ABSENT: distended, guarding, tenderness Rectal exam: PRESENT: deferred Extremities exam: PRESENT: other - Large protuberant swelling on the medial aspect of the left knee. There is firm to palpation. It does not feel fluctuant. Patient reports that they did stick a needle in it. Minimal drai nage reported.. ABSENT: pedal edema Neurological exam: PRESENT: alert, awake, oriented to person, oriented to place, oriented to time, oriented to situation, CN II-XII grossly intact. ABSENT: altered Psychiatric exam: PRESENT: appropriate affect. ABSENT: agitated, anxious Focused psych exam: ABSENT: delusional, paranoid, restlessness Skin exam: PRESENT: dry, skin tears, warm, other - Fragile skin. Skin tear under a gauze wrap on the right forearm. Results Laboratory Results: 09/23/19 14:04 09/26/19 06:15 09/23/19 14:04 Troponin I 0.084 NT-Pro-B Natriuret Pep 5230 H Impressions: Chest X-Ray 09/23/19 00:00 IMPRESSION: Small bilateral pleural effusions, increased from prior. Chronic additional interstitial changes without definitive superimposed airspace disease. Assessment and Plan - Diagnosis (1) COPD with acute exacerbation Is this a current diagnosis for this admission?: Yes Plan: We will continue steroids and bronchodilators. I have resumed his home medications. 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 We will continue his steroids for another day and then they can be stopped September 28, 2019 Steroids decreased today. He is on Brio Ellipta. He may resume some scheduled nebulizer treatments as he still seems to be tachypneic. (2) Coronary artery disease Qualifiers: Coronary Disease-Associated Artery/Lesion type: [place] artery [place] vs. transplanted heart: [place] heart Associated angina: without angina Qualified Code(s): I25.10 - Atherosclerotic heart disease of [place] coronary artery without angina pectoris Is this a current diagnosis for this admission?: Yes Plan: We will continue his home medications. We will try to get records to see exactly what type of surgery he had. The patient is not entirely sure if he had a stent placed or if he had bypass surgery along with an aortic valve replacement. September 28, 2019 Continue current medication regimen. No evidence of acute coronary syndrome at this time. (3) Hypertension Qualifiers: Hypertension type: essential hypertension Qualified Code(s): I10 - E ssential (primary) hypertension Is this a current diagnosis for this admission?: Yes Plan: We will continue his home medications. September 28, 2019 Blood pressure tending towards the low end. I have added 10 mg of furosemide back (he was on 20 mg daily) and I will split the losartan to 50 mg twice daily. We will monitor his pulse and pressures on this regimen. (4) Pulmonary asbestosis Is this a current diagnosis for this admission?: Yes Plan: He is on Symbicort and as needed albuterol inhaler at home. He has chronic fibrosis and I do not know if this is going to get any better, it is unlikely that it will. He has a lot of trouble performing his ADLs and is interested in assisted living. Case management has been consulted. September 28, 2019 Continue Brio Ellipta. I did restart some scheduled nebulizers to see if we could use since breathing somewhat. With underlying fibrosis it is unlikely to make a significant improvement but it is certainly worth a try. Because of the debilitation that his respiratory status causes him is considering moving to an assisted living facility. Because of the abnormal chest x-ray I have ordered a screening PPD. He has already tested COVID negative. (5) Acute kidney injury Is this a current diagnosis for this admission?: Yes Plan: Resolved September 28, 2019 BUN is still elevated. Will need to monitor carefully with resumption of 10 mg of furosemide. Serum creatinine is back in the normal range as is his GFR. (6) Hyperkalemia Is this a current diagnosis for this admission?: Yes Plan: Resolved 09/28/2019 Currently normokalemic. Continue to monitor. (7) Aortic stenosis Qualifiers: Cardiac valve disease etiology: etiology unspecified Qualified Code(s): I35.0 - Nonrheumatic aortic (valve) stenosis Is this a current diagnosis for this admission?: Yes Plan: As previously noted, will attempt to find records to see if he had his aortic valve replaced 09/28/2019 There is no metallic valve click. We will try to avoid hypotension. (8) History of DVT (deep vein thrombosis) Is this a current diagnosis for this admission?: Yes Plan: Continue Eliquis 09/28/2019 No change at this time. - Time Time Spent with patient: 15-24 minutes Medications reviewed and adjusted accordingly: Yes Anticipated discharge: Other - Home with home health versus assisted living
[2019-09-28] MEDS ORDERED: TUBERCULIN,PURIF.PROT.DERIV. 5 TU/0.1 ML TEST 1 ML VIAL ID ONE (15:00)
[2019-09-28] MEDS ORDERED: IPRATROPIUM/ALBUTEROL 0.5-2.5 MG/3 ML AMPUL NEB PRN (16:54)
[2019-09-28] MEDS: ATORVASTATIN CALCIUM 20 MG TABLET PO SCH (21:52)
[2019-09-29] MEDS: IPRATROPIUM/ALBUTEROL 0.5-2.5 MG/3 ML AMPUL NEB SCH ×3 (00:56→16:25)
[2019-09-29 06:04] LABS: ABSOLUTE LYMPHOCYTES (AUTO) 0.5 10^3/uL (0.5-4.7); ABSOLUTE MONOCYTES (AUTO) 0.8 10^3/uL (0.1-1.4); ABSOLUTE NEUT (AUTO) 6.6 10^3/uL (1.7-8.2); BASOPHILS % (AUTO) 0.1 % (0-2); EOSINOPHILS % (AUTO) 0.1 % (0-6); HEMATOCRIT 34.5 % (37.9-51.0); HEMOGLOBIN 11.6 g/dL (13.5-17.0); LYMPHOCYTES % (AUTO) 5.8 % (13-45); MEAN CORPUSCULAR HEMOGLOBIN 32.4 pg (27.0-33.4); MEAN CORPUSCULAR HGB CONC 33.5 g/dL (32.0-36.0); MEAN CORPUSCULAR VOLUME 97 fl (80-97); MONOCYTES % (AUTO) 9.7 % (3-13); PLATELET COUNT 134 10^3/uL (150-450); RED BLOOD COUNT 3.56 10^6/uL (4.35-5.55); SEGMENTED NEUTROPHILS % (AUTO) 84.3 % (42-78); TOTAL CELLS COUNTED % (AUTO) 100 %; WHITE BLOOD COUNT 7.8 10^3/uL (4.0-10.5)
[2019-09-29 06:26] LABS: ALBUMIN 2.9 g/dL (3.5-5.0); BLOOD UREA NITROGEN 36 mg/dL (7-20); CALCIUM 8.6 mg/dL (8.4-10.2); CARBON DIOXIDE 27 mmol/L (22-30); GLUCOSE 108 mg/dL (75-110); POTASSIUM 4.5 mmol/L (3.6-5.0)
[2019-09-29 06:32] LABS: CHLORIDE 107 mmol/L (98-107)
[2019-09-29 06:35] LABS: ANION GAP 2 (5-19)
[2019-09-29] MEDS: METHYLPREDNISOLONE INJ 40 MG/1 ML SDV IV SCH (09:42)
[2019-09-29] MEDS: FLUTICASONE/VILANTEROL 200-25 MCG/DOSE IH SCH (09:43)
[2019-09-29] MEDS: FERROUS SULFATE 325 MG TABLET PO SCH (09:43)
[2019-09-29] MEDS: FUROSEMIDE 20 MG TABLET PO SCH (09:43)
[2019-09-29] MEDS: LOSARTAN POTASSIUM 50 MG TABLET PO SCH ×2 (09:43→21:15)
--- NOTE | 2019-09-29 11:24 | PDOC PROGRESS REPORT ---
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 He said it has been going on for "a while," but he thinks is been getting progressively worse over the past month or so. He has a lot of dyspnea on exertion. He has not had any swelling of his legs. He has not had any cough. No fevers. He fell he got a skin tear on his right arm and had been going to [facility] to get the wound dressed. He said he was going to their office today and they saw that he was short of breath and so they sent him over to the emergency department. He has a chronically elevated BNP. His chest x-ray shows a bunch of chronic findings but nothing new. His creatinine is elevated a little bit above baseline. He said he is not been drinking as much fluids so he does not have to get up and go to the bathroom as often. 09/23-No adverse events overnight. No new complaints. Vital signs been stable. He is comfortable at rest but any exertion causes him to get very short of breath. He said he be interested in getting into an assisted living facility because he says just getting his clothes on every day requires a lot of effort. 09/24-No adverse events overnight. No new complaints. Vital signs been stable. He is comfortable at rest, says he feels like his breathing is getting a little bit better. He is not tried to get up and move around too much today. 09/25-No adverse events overnight. No new complaints. He said he is feeling a little bit better he is coughing up some phlegm but he still gets short of breath with the least exertion. If it a hard time picking up his heart rate on the monitor and often it looks like he is in asystole when really his heart rates in the 80s. He also when he exerts himself his heart rate shoots up really high but it always recovers. On the monitor his heart rate is been niru uncing around some today but has been asymptomatic. 09/26-No adverse events overnight. No new complaints. He said he is feeling a little bit better. He is able to sit up on the edge of the bed and eat a little bit. He takes breaks while he is eating to help with his breathing. 09/27-The patient reports that he still feels short of breath. He is still on nasal cannula. He believes he is not as tachypneic as he previously was. 09/29/2019-patient is comfortably in the bed communicating well. Pulse ox is 100% on 2 L. He is on Eliquis for DVT. Cultures are negative so far. PPD was placed for placement. Reason For Visit: DYSPNEA,PLEURAL EFFUSION,PULMONARY ASBESTOSIS Physical Exam Vital Signs: Temp Pulse Resp BP Pulse Ox 98.1 F 65 16 120/67 99 09/28/19 23:32 09/29/19 07:32 09/29/19 07:32 09/28/19 23:32 09/29/19 07:32 Intake & Output 09/28/19 09/29/19 09/30/19 06:59 06:59 06:59 Intake Total 2337 838 Output Total 855 825 Balance 1482 13 Weight 70.4 kg 71.3 kg General appearance: PRESENT: no acute distress, cooperative, well-developed Head exam: PRESENT: atraumatic Eye exam: PRESENT: conjunctiva pink, PERRLA Mouth exam: PRESENT: moist, tongue midline Neck exam: ABSENT: carotid bruit, JVD, lymphadenopathy, thyromegaly Cardiovascular exam: PRESENT: RRR, systolic murmur. ABSENT: diastolic murmur, rubs Vascular exam: PRESENT: normal capillary refill GI/Abdominal exam: PRESENT: normal bowel sounds, soft. ABSENT: distended, guarding, mass, organolmegaly, rebound, tenderness Rectal exam: PRESENT: deferred Extremities exam: PRESENT: full ROM. ABSENT: calf tenderness, clubbing, pedal edema Neurological exam: PRESENT: alert, awake, oriented to person, oriented to place, oriented to time, oriented to situation, CN II-XII grossly intact. ABSENT: motor sensory deficit Psychiatric exam: PRESENT: appropriate affect, normal mood. ABSENT: homicidal ideation, suicidal ideation Results Laboratory Results: 09/29/19 05:47 09/29/19 05:47 09/29/19 09/29/19 05:47 05:47 WBC 7.8 RBC 3.56 L Hgb 11.6 L Hct 34.5 L MCV 97 MCH 32.4 MCHC 33.5 RDW 16.0 H Plt Count 134 L Seg Neutrophils % 84.3 H Sodium 135.8 L Potassium 4.5 Chloride 107 Carbon Dioxide 27 Anion Gap 2 L BUN 36 H Creatinine 1.08 Est GFR ( Amer) > 60 Glucose 108 Calcium 8.6 Magnesium 2.6 H Albumin 2.9 L 09/23/19 15:37 Blood Blood Culture - Final NO GROWTH IN 5 DAYS 09/23/19 14:04 Blood Blood Culture - Final NO GROWTH IN 5 DAYS 09/23/19 14:04 Troponin I 0.084 NT-Pro-B Natriuret Pep 5230 H Impressions: Chest X-Ray 09/23/19 00:00 IMPRESSION: Small bilateral pleural effusions, increased from prior. Chronic additional interstitial changes without definitive superimposed airspace disease. Assessment and Plan - Diagnosis (1) COPD with acute exacerbation Is this a current diagnosis for this admission?: Yes Plan: We will continue steroids and bronchodilators. I have resumed his home medica tions. 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 We will continue his steroids for another day and then they can be stopped September 28, 2019 Steroids decreased today. He is on Brio Ellipta. He may resume some scheduled nebulizer treatments as he still seems to be tachypneic. 09/29/2019-patient admitted with COPD with exacerbation. Presently on 2 L oxygen pulse ox is 100%. Patient has history of exposure to asbestosis. Presently on DuoNeb nebulizations scheduled and as needed, IV Solu-Medrol 40 mg daily. He is also on a Breo inhaler daily. PPD was placed for placement. Comfortably in the bed communicating well. (2) Pulmonary asbestosis Is this a current diagnosis for this admission?: Yes Plan: He is on Symbicort and as needed albuterol inhaler at home. He has chronic fibrosis and I do not know if this is going to get any better, it is unlikely that it will. He has a lot of trouble performing his ADLs and is interested in assisted living. Case management has been consulted. September 28, 2019 Continue Brio Ellipta. I did restart some scheduled nebulizers to see if we could use since breathing somewhat. With underlying fibrosis it is unlikely to make a significant improvement but it is certainly worth a try. Because of the debilitation that his respiratory status causes him is considering moving to an assisted living facility. Because of the abnormal chest x-ray I have ordered a screening PPD. He has already tested COVID negative. 09/29/19 Kober test is pending. And is presently on 2 L oxygen via nasal cannula. (3) Hyperkalemia Is this a current diagnosis for this admission?: Yes Plan: Resolved 09/28/2019 Currently normokalemic. Continue to monitor. 09/29/2019-serum potassium today is 4.5. Hyperkalemia is resolved. (4) Aortic stenosis Qualifiers: Cardiac valve disease etiology: etiology unspecified Qualified Code(s): I35.0 - Nonrheumatic aortic (valve) stenosis Is this a current diagnosis for this admission?: No Plan: As previously noted, will attempt to find records to see if he had his aortic valve replaced 09/28/2019 There is no metallic valve click. We will try to avoid hypotension. (5) History of DVT (deep vein thrombosis) Is this a current diagnosis for this admission?: No Plan: Continue Eliquis 09/28/2019 No change at this time. September 28, 2019 The patient in fact is not on Eliquis. I could not find any evidence of an anticoagulants in the medication reconciliation or medication summary. 09/29/2019-patient has history of DVT not on Eliquis at this time. Not on anticoagulation at this time. Plan is to do bilateral lower leg venous Doppler today.
--- NOTE | 2019-09-29 16:36 | RADIOLOGY REPORT (SQ) ---
EXAM DESCRIPTION: VENOUS BILATERAL LOWER IMAGES COMPLETED DATE/TIME: 09/29/2019 4:19 pm REASON FOR STUDY: dvt COMPARISON: None. TECHNIQUE: Dynamic and static osullivan scale and color images acquired of both lower extremity venous sy stems. Selected spectral images acquired with additional compression and augmentation maneuvers. Imag es stored on PACS. LIMITATIONS: None. FINDINGS: RIGHT LEG COMMON FEMORAL AND FEMORAL: Normal phasicity, compression and augmentation. No visualized echogenic m aterial on osullivan scale. No defects on color images. POPLITEAL: Normal compression and augmentation. No visualized echogenic material on osullivan scale. No de fects on color images. CALF VESSELS: Normal compression and augmentation. No visualized echogenic material on osullivan scale. No defects on color image. GSV AND SSV: Normal compression. No visualized echogenic material on osullivan scale. No defects on color images. ANY DEEP VENOUS INSUFFICIENCY: Not evaluated. ANY EVIDENCE OF POPLITEAL CYST: No. OTHER: No other significant finding. LEFT LEG COMMON FEMORAL AND FEMORAL: Normal phasicity, compression and augmentation. No visualized echogenic m aterial on osullivan scale. No defects on color images. POPLITEAL: Normal compression and augmentation. No visualized echogenic material on osullivan scale. No de fects on color images. CALF VESSELS: Normal compression and augmentation. No visualized echogenic material on osullivan scale. No defects on color images. GSV AND SSV: Normal compression. No visualized echogenic material on osullivan scale. No defects on color images. ANY DEEP VENOUS INSUFFICIENCY: Not evaluated. ANY EVIDENCE POPLITEAL CYST: No. OTHER: No other significant finding. IMPRESSION: NO EVIDENCE DVT OR SVT IN EITHER LEG. TECHNICAL DOCUMENTATION: JOB ID: [id number] 2010 [employer]- All Rights Reserved Reading location - IP/workstation name: [email or web address]
[2019-09-29] MEDS: ATORVASTATIN CALCIUM 20 MG TABLET PO SCH (21:15)
[2019-09-30] MEDS: IPRATROPIUM/ALBUTEROL 0.5-2.5 MG/3 ML AMPUL NEB SCH ×4 (00:20→16:11)
--- NOTE | 2019-09-30 10:32 | PDOC PROGRESS REPORT ---
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 He said it has been going on for "a while," but he thinks is been getting progressively worse over the past month or so. He has a lot of dyspnea on exertion. He has not had any swelling of his legs. He has not had any cough. No fevers. He fell he got a skin tear on his right arm and had been going to [facility] to get the wound dressed. He said he was going to their office today and they saw that he was short of breath and so they sent him over to the emergency department. He has a chronically elevated BNP. His chest x-ray shows a bunch of chronic findings but nothing new. His creatinine is elevated a little bit above baseline. He said he is not been drinking as much fluids so he does not have to get up and go to the bathroom as often. 09/23-No adverse events overnight. No new complaints. Vital signs been stable. He is comfortable at rest but any exertion causes him to get very short of breath. He said he be interested in getting into an assisted living facility because he says just getting his clothes on every day requires a lot of effort. 09/24-No adverse events overnight. No new complaints. Vital signs been stable. He is comfortable at rest, says he feels like his breathing is getting a little bit better. He is not tried to get up and move around too much today. 09/25-No adverse events overnight. No new complaints. He said he is feeling a little bit better he is coughing up some phlegm but he still gets short of breath with the least exertion. If it a hard time picking up his heart rate on the monitor and often it looks like he is in asystole when really his heart rates in the 80s. He also when he exerts himself his heart rate shoots up really high but it always recovers. On the monitor his heart rate is been niru uncing around some today but has been asymptomatic. 09/26-No adverse events overnight. No new complaints. He said he is feeling a little bit better. He is able to sit up on the edge of the bed and eat a little bit. He takes breaks while he is eating to help with his breathing. 09/27-The patient reports that he still feels short of breath. He is still on nasal cannula. He believes he is not as tachypneic as he previously was. 09/29/2019-patient is comfortably in the bed communicating well. Pulse ox is 100% on 2 L. He is on Eliquis for DVT. Cultures are negative so far. PPD was placed for placement. 09/30/2019-patient is comfortable in the chair communicating well. Expressing desire to go home. PPD was done for possible placement waiting for the approval. No acute events in the last 24 hours. Reason For Visit: DYSPNEA,PLEURAL EFFUSION,PULMONARY ASBESTOSIS Physical Exam Vital Signs: Temp Pulse Resp BP Pulse Ox 97.8 F 80 16 112/57 L 99 09/30/19 08:06 09/30/19 08:15 09/30/19 08:15 09/30/19 08:06 09/30/19 08:15 Pulse Oximeter Ambulatory Start: 09/28/19 13:08 Freq: RTDAILY Status: Active Protocol: Document 09/29/19 11:26 [facility] (Rec: 09/29/19 11:29 [facility] [id number]) Exercise Oximetry Treatment Ambulating SpO2 Charge Now Yes Oxygen Delivery Method Nasal Cannula Oxygen Flow Rate (L/min) 2 Recovery O2 Saturation by Pulse Oximetry 93 Pulse Rate 93 Respiratory Rate 20 Exercise O2 Saturation by Pulse Oximetry 89 Pulse Rate 90 Respiratory Rate 20 Resting O2 Saturation by Pulse Oximetry 96 Pulse Rate 82 Respiratory Rate 16 Ambulation Distance (ft) 25 Exercise Tolerance Fair Additional RT Notes Other Patient seen at bedside on NC 2lpm with 02 saturation 97%/HR 88. Oxygen was taken off and left on RA with 02 saturation 96% HR 82. Patient was able to walk from bed to door and began c/o feeling breathless at this time. Patient was taken back to his bed and placed on NC 2lpm with 02 saturation 95%. Intake & Output 09/29/19 09/30/19 10/01/19 06:59 06:59 06:59 Intake Total 838 Output Total 825 825 Balance 13 -825 Weight 71.3 kg 68.3 kg General appearance: PRESENT: no acute distress, well-developed Head exam: PRESENT: atraumatic Eye exam: PRESENT: PERRLA Mouth exam: PRESENT: moist, tongue midline Teeth exam: PRESENT: poor dentation Neck exam: ABSENT: carotid bruit, JVD, lymphadenopathy, thyromegaly Respiratory exam: PRESENT: decreased breath sounds Vascular exam: PRESENT: normal capillary refill GI/Abdominal exam: PRESENT: normal bowel sounds, soft. ABSENT: distended, guarding, mass, organolmegaly, rebound, tenderness Rectal exam: PRESENT: deferred Extremities exam: PRESENT: full ROM. ABSENT: calf tenderness, clubbing, pedal edema Neurological exam: PRESENT: alert, awake, oriented to person, oriented to place, oriented to time, oriented to situation, CN II-XII grossly intact. ABSENT: motor sensory deficit Psychiatric exam: PRESENT: appropriate affect, normal mood. ABSENT: homicidal ideation, suicidal ideation Results Laboratory Results: 09/29/19 05:47 09/29/19 05:47 09/23/19 14:04 Troponin I 0.084 NT-Pro-B Natriuret Pep 5230 H Impressions: Chest X-Ray 09/23/19 00:00 IMPRESSION: Small bilateral pleural effusions, increased from prior. Chronic additional interstitial changes without definitive superimposed airspace disease. Venous Doppler Study 09/29/19 00:00 IMPRESSION: NO EVIDENCE DVT OR SVT IN EITHER LEG. Assessment and Plan - Diagnosis (1) COPD with acute exacerbation Is this a current diagnosis for this admission?: Yes Plan: We will continue steroids and bronchodilators. I have resumed his home medications. 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 We will continue his steroids for another day and then they can be stopped September 28, 2019 Steroids decreased today. He is on Brio Ellipta. He may resume some scheduled nebulizer treatments as he still seems to be tachypneic. 09/29/2019-patient admitted with COPD with exacerbation. Presently on 2 L oxygen pulse ox is 100%. Patient has history of exposure to asbestosis. Presently on DuoNeb nebulizations scheduled and as needed, IV Solu-Medrol 40 mg daily. He is also on a Breo inhaler daily. PPD was placed for placement. Comfortably in the bed communicating well. 09/30/2019-patient is comfortable in the chair communicating well. Not in distress. Pulse ox is 100% on 2 L. Is to discontinue IV Solu-Medrol from today to place him on p.o. prednisone 10 mg twice a day from this morning. (2) Pulmonary asbestosis Is this a current diagnosis for this admission?: No Plan: He is on Symbicort and as needed albuterol inhaler at home. He has chronic fibrosis and I do not know if this is going to get any better, it is unlikely that it will. He has a lot of trouble performing his ADLs and is interested in assisted living. Case management has been consulted. September 28, 2019 Continue Brio Ellipta. I did restart some scheduled nebulizers to see if we could use since breathing somewhat. With underlying fibrosis it is unlikely to make a significant improvement but it is certainly worth a try. Because of the debilitation that his respiratory status causes him is considering moving to an assisted living facility. Because of the abnormal chest x-ray I have ordered a screening PPD. He has already tested COVID negative. 09/29/19 Kober test is pending. And is presently on 2 L oxygen via nasal cannula. (3) Hyperkalemia Is this a current diagnosis for this admission?: Yes Plan: Resolved 09/28/2019 Currently normokalemic. Continue to monitor. 09/29/2019-serum potassium today is 4.5. Hyperkalemia is resolved. (4) Aortic stenosis Qualifiers: Cardiac valve disease etiology: etiology unspecified Qualified Code(s): I35.0 - Nonrheumatic aortic (valve) stenosis Is this a current diagnosis for this admission?: No Plan: As previously noted, will attempt to find records to see if he had his aortic valve replaced 09/28/2019 There is no metallic valve click. We will try to avoid hypotension. 09/30/2019-blood pressure today is 116/65. Stable. (5) History of DVT (deep vein thrombosis) Is this a current diagnosis for this admission?: No Plan: Continue Eliquis 09/28/2019 No change at this time. September 28, 2019 The patient in fact is not on Eliquis. I could not find any evidence of an anticoagulants in the medication reconciliation or medication summary. 09/29/2019-patient has history of DVT not on Eliquis at this time. Not on anticoagulation at this time. Plan is to do bilateral lower leg venous Doppler today. 09/30/2019-DVT studies are negative in both lower extremities. Patient is not on anticoagulation at this time.
[2019-09-30] MEDS: LOSARTAN POTASSIUM 50 MG TABLET PO SCH ×2 (11:09→21:15)
[2019-09-30] MEDS: FLUTICASONE/VILANTEROL 200-25 MCG/DOSE IH SCH (11:09)
[2019-09-30] MEDS: FUROSEMIDE 20 MG TABLET PO SCH (11:10)
[2019-09-30] MEDS: FERROUS SULFATE 325 MG TABLET PO SCH (11:10)
[2019-09-30] MEDS: PREDNISONE 10 MG TABLET PO SCH (19:13)
[2019-09-30] MEDS: ATORVASTATIN CALCIUM 20 MG TABLET PO SCH (21:15)
[2019-10-01] MEDS: IPRATROPIUM/ALBUTEROL 0.5-2.5 MG/3 ML AMPUL NEB SCH ×3 (00:22→16:37)
--- NOTE | 2019-10-01 08:49 | PDOC PROGRESS REPORT ---
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 He said it has been going on for "a while," but he thinks is been getting progressively worse over the past month or so. He has a lot of dyspnea on exertion. He has not had any swelling of his legs. He has not had any cough. No fevers. He fell he got a skin tear on his right arm and had been going to [facility] to get the wound dressed. He said he was going to their office today and they saw that he was short of breath and so they sent him over to the emergency department. He has a chronically elevated BNP. His chest x-ray shows a bunch of chronic findings but nothing new. His creatinine is elevated a little bit above baseline. He said he is not been drinking as much fluids so he does not have to get up and go to the bathroom as often. 09/23-No adverse events overnight. No new complaints. Vital signs been stable. He is comfortable at rest but any exertion causes him to get very short of breath. He said he be interested in getting into an assisted living facility because he says just getting his clothes on every day requires a lot of effort. 09/24-No adverse events overnight. No new complaints. Vital signs been stable. He is comfortable at rest, says he feels like his breathing is getting a little bit better. He is not tried to get up and move around too much today. 09/25-No adverse events overnight. No new complaints. He said he is feeling a little bit better he is coughing up some phlegm but he still gets short of breath with the least exertion. If it a hard time picking up his heart rate on the monitor and often it looks like he is in asystole when really his heart rates in the 80s. He also when he exerts himself his heart rate shoots up really high but it always recovers. On the monitor his heart rate is been niru uncing around some today but has been asymptomatic. 09/26-No adverse events overnight. No new complaints. He said he is feeling a little bit better. He is able to sit up on the edge of the bed and eat a little bit. He takes breaks while he is eating to help with his breathing. 09/27-The patient reports that he still feels short of breath. He is still on nasal cannula. He believes he is not as tachypneic as he previously was. 09/29/2019-patient is comfortably in the bed communicating well. Pulse ox is 100% on 2 L. He is on Eliquis for DVT. Cultures are negative so far. PPD was placed for placement. 09/30/2019-patient is comfortable in the chair communicating well. Expressing desire to go home. PPD was done for possible placement waiting for the approval. No acute events in the last 24 hours. 10/01/2019-patient is comfortably in the chair eating breakfast. Again expressing desire to go home. Plan is to discharge him to long-term care facility like assisted living. PPD was done which was negative. Reason For Visit: DYSPNEA,PLEURAL EFFUSION,PULMONARY ASBESTOSIS Physical Exam Vital Signs: Temp Pulse Resp BP Pulse Ox 97.5 F 66 18 142/63 H 99 10/01/19 07:35 10/01/19 08:29 10/01/19 08:29 10/01/19 07:35 10/01/19 08:29 Pulse Oximeter Ambulatory Start: 09/28/19 13:08 Freq: RTDAILY Status: Active Protocol: Document 10/01/19 08:29 VIVIANA (Rec: 10/01/19 08:35 J [email or web address]) Exercise Oximetry Treatment Ambulating SpO2 Charge Now No Intake & Output 09/30/19 10/01/19 10/02/19 06:59 06:59 06:59 Intake Total 1098 Output Total 822 5285 Balance -825 -239 Weight 68.3 kg 66.7 kg General appearance: PRESENT: no acute distress, cooperative, thin Head exam: PRESENT: atraumatic Eye exam: PRESENT: PERRLA Mouth exam: PRESENT: moist, tongue midline Neck exam: ABSENT: carotid bruit, JVD, lymphadenopathy, thyromegaly Respiratory exam: PRESENT: clear to auscultation aga. ABSENT: rales, rhonchi, wheezes Cardiovascular exam: PRESENT: RRR. ABSENT: diastolic murmur, rubs, systolic murmur GI/Abdominal exam: PRESENT: normal bowel sounds, soft. ABSENT: distended, guarding, mass, organolmegaly, rebound, tenderness Rectal exam: PRESENT: deferred Neurological exam: PRESENT: alert, awake, oriented to person, oriented to place, oriented to time, oriented to situation, CN II-XII grossly intact. ABSENT: motor sensory deficit Psychiatric exam: PRESENT: appropriate affect, normal mood. ABSENT: homicidal ideation, suicidal ideation Results Laboratory Results: 09/29/19 05:47 09/29/19 05:47 09/23/19 14:04 Troponin I 0.084 NT-Pro-B Natriuret Pep 5230 H Impressions: Chest X-Ray 09/23/19 00:00 IMPRESSION: Small bilateral pleural effusions, increased from prior. Chronic additional interstitial changes without definitive superimposed airspace disease. Venous Doppler Study 09/29/19 00:00 IMPRESSION: NO EVIDENCE DVT OR SVT IN EITHER LEG. Assessment and Plan - Diagnosis (1) COPD with acute exacerbation Is this a current diagnosis for this admission?: Yes Plan: We will continue steroids and bronchodilators. I have resumed his home medications. 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 We will continue his steroids for another day and then they can be stopped September 28, 2019 Steroids decreased today. He is on Brio Ellipta. He may resume some scheduled nebulizer treatments as he still seems to be tachypneic. 09/29/2019-patient admitted with COPD with exacerbation. Presently on 2 L oxygen pulse ox is 100%. Patient has history of exposure to asbestosis. Presently on DuoNeb nebulizations scheduled and as needed, IV Solu-Medrol 40 mg daily. He is also on a Breo inhaler daily. PPD was placed for placement. Comfortably in the bed communicating well. 09/30/2019-patient is comfortable in the chair communicating well. Not in distress. Pulse ox is 100% on 2 L. Is to discontinue IV Solu-Medrol from today to place him on p.o. prednisone 10 mg twice a day from this morning. 10/01/2019-patient has history of COPD pulse ox is 100% on room air. Stable. (2) Pulmonary asbestosis Is this a current diagnosis for this admission?: No Plan: He is on Symbicort and as needed albuterol inhaler at home. He has chronic fibrosis and I do not know if this is going to get any better, it is unlikely that it will. He has a lot of trouble performing his ADLs and is interested in assisted living. Case management has been consulted. September 28, 2019 Continue Brio Ellipta. I did restart some scheduled nebulizers to see if we could use since breathing somewhat. With underlying fibrosis it is unlikely to make a significant improvement but it is certainly worth a try. Because of the debilitation that his respiratory status causes him is considering moving to an assisted living facility. Because of the abnormal chest x-ray I have ordered a screening PPD. He has already tested COVID negative. 09/29/19 Kober test is pending. And is presently on 2 L oxygen via nasal cannula. 10/01/2019-pulse ox is 100% on room air today. (3) Hyperkalemia Is this a current diagnosis for this admission?: Yes Plan: Resolved 09/28/2019 Currently normokalemic. Continue to monitor. 09/29/2019-serum potassium today is 4.5. Hyperkalemia is resolved. (4) Aortic stenosis Qualifiers: Cardiac valve disease etiology: etiology unspecified Qualified Code(s): I35.0 - Nonrheumatic aortic (valve) stenosis Is this a current diagnosis for this admission?: No Plan: As previously noted, will attempt to find records to see if he had his aortic valve replaced 09/28/2019 There is no metallic valve click. We will try to avoid hypotension. 09/30/2019-blood pressure today is 116/65. Stable. (5) History of DVT (deep vein thrombosis) Is this a current diagnosis for this admission?: No Plan: Continue Eliquis 09/28/2019 No change at this time. September 28, 2019 The patient in fact is not on Eliquis. I could not find any evidence of an anticoagulants in the medication reconciliation or medication summary. 09/29/2019-patient has history of DVT not on Eliquis at this time. Not on anticoagulation at this time. Plan is to do bilateral lower leg venous Doppler today. 09/30/2019-DVT studies are negative in both lower extremities. Patient is not on anticoagulation at this time.
[2019-10-01] MEDS: LOSARTAN POTASSIUM 50 MG TABLET PO SCH ×2 (09:15→22:02)
[2019-10-01] MEDS: FERROUS SULFATE 325 MG TABLET PO SCH (09:16)
[2019-10-01] MEDS: PREDNISONE 10 MG TABLET PO SCH ×2 (09:16→17:08)
[2019-10-01] MEDS: FUROSEMIDE 20 MG TABLET PO SCH (09:16)
[2019-10-01] MEDS: FLUTICASONE/VILANTEROL 200-25 MCG/DOSE IH SCH (09:20)
[2019-10-01] MEDS: METHYLPREDNISOLONE INJ 40 MG/1 ML SDV IV SCH (21:40)
[2019-10-01] MEDS: ATORVASTATIN CALCIUM 20 MG TABLET PO SCH (22:02)
[2019-10-02] MEDS: IPRATROPIUM/ALBUTEROL 0.5-2.5 MG/3 ML AMPUL NEB SCH ×3 (00:10→15:57)
--- NOTE | 2019-10-02 08:16 | PDOC PROGRESS REPORT ---
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 He said it has been going on for "a while," but he thinks is been getting progressively worse over the past month or so. He has a lot of dyspnea on exertion. He has not had any swelling of his legs. He has not had any cough. No fevers. He fell he got a skin tear on his right arm and had been going to [facility] to get the wound dressed. He said he was going to their office today and they saw that he was short of breath and so they sent him over to the emergency department. He has a chronically elevated BNP. His chest x-ray shows a bunch of chronic findings but nothing new. His creatinine is elevated a little bit above baseline. He said he is not been drinking as much fluids so he does not have to get up and go to the bathroom as often. 09/23-No adverse events overnight. No new complaints. Vital signs been stable. He is comfortable at rest but any exertion causes him to get very short of breath. He said he be interested in getting into an assisted living facility because he says just getting his clothes on every day requires a lot of effort. 09/24-No adverse events overnight. No new complaints. Vital signs been stable. He is comfortable at rest, says he feels like his breathing is getting a little bit better. He is not tried to get up and move around too much today. 09/25-No adverse events overnight. No new complaints. He said he is feeling a little bit better he is coughing up some phlegm but he still gets short of breath with the least exertion. If it a hard time picking up his heart rate on the monitor and often it looks like he is in asystole when really his heart rates in the 80s. He also when he exerts himself his heart rate shoots up really high but it always recovers. On the monitor his heart rate is been niru uncing around some today but has been asymptomatic. 09/26-No adverse events overnight. No new complaints. He said he is feeling a little bit better. He is able to sit up on the edge of the bed and eat a little bit. He takes breaks while he is eating to help with his breathing. 09/27-The patient reports that he still feels short of breath. He is still on nasal cannula. He believes he is not as tachypneic as he previously was. 09/29/2019-patient is comfortably in the bed communicating well. Pulse ox is 100% on 2 L. He is on Eliquis for DVT. Cultures are negative so far. PPD was placed for placement. 09/30/2019-patient is comfortable in the chair communicating well. Expressing desire to go home. PPD was done for possible placement waiting for the approval. No acute events in the last 24 hours. 10/01/2019-patient is comfortably in the chair eating breakfast. Again expressing desire to go home. Plan is to discharge him to long-term care facility like assisted living. PPD was done which was negative. 10/02/2019-patient is waiting for placement. PPD is negative. No acute events in the last 24 hours. Blood pressures are stable. Reason For Visit: DYSPNEA,PLEURAL EFFUSION,PULMONARY ASBESTOSIS Physical Exam Vital Signs: Temp Pulse Resp BP Pulse Ox 97.8 F 63 18 105/62 97 10/02/19 03:20 10/02/19 03:20 10/02/19 03:20 10/02/19 03:20 10/02/19 07:27 Pulse Oximeter Ambulatory Start: 09/28/19 13:08 Freq: RTDAILY Status: Active Protocol: Document 10/01/19 08:29 J (Rec: 10/01/19 08:35 J [email or web address]) Exercise Oximetry Treatment Ambulating SpO2 Charge Now No Intake & Output 10/01/19 10/02/19 10/03/19 06:59 06:59 06:59 Intake Total 1098 840 Output Total 1379 5052 Balance -277 -1660 Weight 66.7 kg 67.5 kg General appearance: PRESENT: no acute distress Head exam: PRESENT: atraumatic Eye exam: PRESENT: PERRLA Mouth exam: PRESENT: moist, tongue midline Teeth exam: PRESENT: poor dentation Neck exam: ABSENT: carotid bruit, JVD, lymphadenopathy, thyromegaly Respiratory exam: PRESENT: decreased breath sounds Cardiovascular exam: PRESENT: RRR. ABSENT: diastolic murmur, rubs, systolic murmur Pulses: PRESENT: normal dorsalis pedis pul GI/Abdominal exam: PRESENT: normal bowel sounds, soft. ABSENT: distended, guarding, mass, organolmegaly, rebound, tenderness Rectal exam: PRESENT: deferred Extremities exam: PRESENT: full ROM. ABSENT: calf tenderness, clubbing, pedal edema Neurological exam: PRESENT: alert, awake, oriented to person, oriented to place, oriented to time, oriented to situation, CN II-XII grossly intact. ABSENT: motor sensory deficit Psychiatric exam: PRESENT: appropriate affect, normal mood. ABSENT: homicidal ideation, suicidal ideation Results Laboratory Results: 09/29/19 05:47 09/29/19 05:47 09/23/19 14:04 Troponin I 0.084 NT-Pro-B Natriuret Pep 5230 H Impressions: Chest X-Ray 09/23/19 00:00 IMPRESSION: Small bilateral pleural effusions, increased from prior. Chronic additional interstitial changes without definitive superimposed airspace disease. Venous Doppler Study 09/29/19 00:00 IMPRESSION: NO EVIDENCE DVT OR SVT IN EITHER LEG. Assessment and Plan - Diagnosis (1) COPD with acute exacerbation Is this a current diagnosis for this admission?: Yes Plan: We will continue steroids and bronchodilators. I have resumed his home medications. 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 We will continue his steroids for another day and then they can be stopped September 28, 2019 Steroids decreased today. He is on Brio Ellipta. He may resume some scheduled nebulizer treatments as he still seems to be tachypneic. 09/29/2019-patient admitted with COPD with exacerbation. Presently on 2 L oxygen pulse ox is 100%. Patient has history of exposure to asbestosis. Presently on DuoNeb nebulizations scheduled and as needed, IV Solu-Medrol 40 mg daily. He is also on a Breo inhaler daily. PPD was placed for placement. Comfortably in the bed communicating well. 09/30/2019-patient is comfortable in the chair communicating well. Not in distress. Pulse ox is 100% on 2 L. Is to discontinue IV Solu-Medrol from today to place him on p.o. prednisone 10 mg twice a day from this morning. 10/01/2019-patient has history of COPD pulse ox is 100% on room air. Stable. 10/02/2019-patient has history of COPD pulse ox is 100% on 2 L. On examination bilateral entry was decreased no wheezing no crepitations present. (2) Pulmonary asbestosis Is this a current diagnosis for this admission?: No Plan: He is on Symbicort and as needed albuterol inhaler at home. He has chronic fibrosis and I do not know if this is going to get any better, it is unlikely that it will. He has a lot of trouble performing his ADLs and is interested in assisted living. Case management has been consulted. September 28, 2019 Continue Brio Ellipta. I did restart some scheduled nebulizers to see if we could use since breathing somewhat. With underlying fibrosis it is unlikely to make a significant improvement but it is certainly worth a try. Because of the debilitation that his respiratory status causes him is considering moving to an assisted living facility. Because of the abnormal chest x-ray I have ordered a screening PPD. He has already tested COVID negative. 09/29/19 Kober test is pending. And is presently on 2 L oxygen via nasal cannula. 10/01/2019-pulse ox is 100% on room air today. (3) Hyperkalemia Is this a current diagnosis for this admission?: Yes Plan: Resolved 09/28/2019 Currently normokalemic. Continue to monitor. 09/29/2019-serum potassium today is 4.5. Hyperkalemia is resolved. (4) Aortic stenosis Qualifiers: Cardiac valve disease etiology: etiology unspecified Qualified Code(s): I35.0 - Nonrheumatic aortic (valve) stenosis Is this a current diagnosis for this admission?: No Plan: As previously noted, will attempt to find records to see if he had his aortic valve replaced 09/28/2019 There is no metallic valve click. We will try to avoid hypotension. 09/30/2019-blood pressure today is 116/65. Stable. (5) History of DVT (deep vein thrombosis) Is this a current diagnosis for this admission?: No Plan: Continue Eliquis 09/28/2019 No change at this time. September 28, 2019 The patient in fact is not on Eliquis. I could not find any evidence of an anticoagulants in the medication reconciliation or medication summary. 09/29/2019-patient has history of DVT not on Eliquis at this time. Not on anticoagulation at this time. Plan is to do bilateral lower leg venous Doppler today. 09/30/2019-DVT studies are negative in both lower extremities. Patient is not on anticoagulation at this time.
[2019-10-02] MEDS: LOSARTAN POTASSIUM 50 MG TABLET PO SCH ×2 (10:07→21:36)
[2019-10-02] MEDS: FUROSEMIDE 20 MG TABLET PO SCH (10:07)
[2019-10-02] MEDS: PREDNISONE 10 MG TABLET PO SCH ×2 (10:07→18:06)
[2019-10-02] MEDS: FLUTICASONE/VILANTEROL 200-25 MCG/DOSE IH SCH (10:08)
[2019-10-02] MEDS: FERROUS SULFATE 325 MG TABLET PO SCH (10:08)
[2019-10-02] MEDS: ATORVASTATIN CALCIUM 20 MG TABLET PO SCH (21:35)
[2019-10-03] MEDS: IPRATROPIUM/ALBUTEROL 0.5-2.5 MG/3 ML AMPUL NEB SCH ×3 (00:13→16:03)
--- NOTE | 2019-10-03 09:26 | PDOC PROGRESS REPORT ---
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 He said it has been going on for "a while," but he thinks is been getting progressively worse over the past month or so. He has a lot of dyspnea on exertion. He has not had any swelling of his legs. He has not had any cough. No fevers. He fell he got a skin tear on his right arm and had been going to [facility] to get the wound dressed. He said he was going to their office today and they saw that he was short of breath and so they sent him over to the emergency department. He has a chronically elevated BNP. His chest x-ray shows a bunch of chronic findings but nothing new. His creatinine is elevated a little bit above baseline. He said he is not been drinking as much fluids so he does not have to get up and go to the bathroom as often. 09/23-No adverse events overnight. No new complaints. Vital signs been stable. He is comfortable at rest but any exertion causes him to get very short of breath. He said he be interested in getting into an assisted living facility because he says just getting his clothes on every day requires a lot of effort. 09/24-No adverse events overnight. No new complaints. Vital signs been stable. He is comfortable at rest, says he feels like his breathing is getting a little bit better. He is not tried to get up and move around too much today. 09/25-No adverse events overnight. No new complaints. He said he is feeling a little bit better he is coughing up some phlegm but he still gets short of breath with the least exertion. If it a hard time picking up his heart rate on the monitor and often it looks like he is in asystole when really his heart rates in the 80s. He also when he exerts himself his heart rate shoots up really high but it always recovers. On the monitor his heart rate is been niru uncing around some today but has been asymptomatic. 09/26-No adverse events overnight. No new complaints. He said he is feeling a little bit better. He is able to sit up on the edge of the bed and eat a little bit. He takes breaks while he is eating to help with his breathing. 09/27-The patient reports that he still feels short of breath. He is still on nasal cannula. He believes he is not as tachypneic as he previously was. 09/29/2019-patient is comfortably in the bed communicating well. Pulse ox is 100% on 2 L. He is on Eliquis for DVT. Cultures are negative so far. PPD was placed for placement. 09/30/2019-patient is comfortable in the chair communicating well. Expressing desire to go home. PPD was done for possible placement waiting for the approval. No acute events in the last 24 hours. 10/01/2019-patient is comfortably in the chair eating breakfast. Again expressing desire to go home. Plan is to discharge him to long-term care facility like assisted living. PPD was done which was negative. 10/02/2019-patient is waiting for placement. PPD is negative. No acute events in the last 24 hours. Blood pressures are stable. 10/03/2019-patient is waiting for placement. PPD is negative. If the placement is not available then patient may end up going home. Reason For Visit: DYSPNEA,PLEURAL EFFUSION,PULMONARY ASBESTOSIS Physical Exam Vital Signs: Temp Pulse Resp BP Pulse Ox 97.5 F 75 20 119/81 98 10/03/19 07:38 10/03/19 08:17 10/03/19 08:17 10/03/19 07:38 10/03/19 08:17 Pulse Oximeter Ambulatory Start: 09/28/19 13:08 Freq: RTDAILY Status: Active Protocol: Document 10/02/19 08:00 VIVIANA (Rec: 10/02/19 16:44 [email or web address]) Exercise Oximetry Treatment Ambulating SpO2 Charge Now No Oxygen Delivery Method Room Air FIO2 (% Oxygen) 21 Resting O2 Saturation by Pulse Oximetry 91 Additional RT Notes Other pt doesn't feel like himself and request not walk right now . Intake & Output 10/02/19 10/03/19 10/04/19 06:59 06:59 06:59 Intake Total 840 960 Output Total 2500 850 Balance -1660 110 Weight 67.5 kg 67.2 kg General appearance: PRESENT: no acute distress, cooperative, thin Head exam: PRESENT: atraumatic Eye exam: PRESENT: PERRLA Ear exam: PRESENT: normal external ear exam Mouth exam: PRESENT: neck supple Teeth exam: PRESENT: poor dentation Neck exam: ABSENT: carotid bruit, JVD, lymphadenopathy, thyromegaly Respiratory exam: PRESENT: clear to auscultation aga. ABSENT: rales, rhonchi, wheezes Cardiovascular exam: PRESENT: RRR. ABSENT: diastolic murmur, rubs, systolic murmur GI/Abdominal exam: PRESENT: normal bowel sounds, soft. ABSENT: distended, guarding, mass, organolmegaly, rebound, tenderness Rectal exam: PRESENT: deferred Extremities exam: PRESENT: full ROM. ABSENT: calf tenderness, clubbing, pedal edema Neurological exam: PRESENT: alert, awake, oriented to person, oriented to place, oriented to time, oriented to situation, CN II-XII grossly intact. ABSENT: motor sensory deficit Psychiatric exam: PRESENT: appropriate affect, normal mood. ABSENT: homicidal ideation, suicidal ideation Results Laboratory Results: 09/29/19 05:47 09/29/19 05:47 09/23/19 14:04 Troponin I 0.084 NT-Pro-B Natriuret Pep 5230 H Impressions: Chest X-Ray 09/23/19 00:00 IMPRESSION: Small bilateral pleural effusions, increased from prior. Chronic additional interstitial changes without definitive superimposed airspace disease. Venous Doppler Study 09/29/19 00:00 IMPRESSION: NO EVIDENCE DVT OR SVT IN EITHER LEG. Assessment and Plan - Diagnosis (1) COPD with acute exacerbation Is this a current diagnosis for this admission?: Yes Plan: We will continue steroids and bronchodilators. I have resumed his home medica tions. 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 We will continue his steroids for another day and then they can be stopped September 28, 2019 Steroids decreased today. He is on Brio Ellipta. He may resume some scheduled nebulizer treatments as he still seems to be tachypneic. 09/29/2019-patient admitted with COPD with exacerbation. Presently on 2 L oxygen pulse ox is 100%. Patient has history of exposure to asbestosis. Presently on DuoNeb nebulizations scheduled and as needed, IV Solu-Medrol 40 mg daily. He is also on a Breo inhaler daily. PPD was placed for placement. Comfortably in the bed communicating well. 09/30/2019-patient is comfortable in the chair communicating well. Not in distress. Pulse ox is 100% on 2 L. Is to discontinue IV Solu-Medrol from today to place him on p.o. prednisone 10 mg twice a day from this morning. 10/01/2019-patient has history of COPD pulse ox is 100% on room air. Stable. 10/02/2019-patient has history of COPD pulse ox is 100% on 2 L. On examination bilateral entry was decreased no wheezing no crepitations present. 10/03/2019-pulse ox today is 98% 2 L. Without oxygen pulse ox is dropping. Requested the nurse to check for home oxygen requirements. (2) Pulmonary asbestosis Is this a current diagnosis for this admission?: No Plan: He is on Symbicort and as needed albuterol inhaler at home. He has chronic fibrosis and I do not know if this is going to get any better, it is unlikely that it will. He has a lot of trouble performing his ADLs and is interested in assisted living. Case management has been consulted. September 28, 2019 Continue Brio Ellipta. I did restart some scheduled nebulizers to see if we could use since breathing somewhat. With underlying fibrosis it is unlikely to make a significant improvement but it is certainly worth a try. Because of the debilitation that his respiratory status causes him is considering moving to an assisted living facility. Because of the abnormal chest x-ray I have ordered a screening PPD. He has already tested COVID negative. 09/29/19 Kober test is pending. And is presently on 2 L oxygen via nasal cannula. 10/01/2019-pulse ox is 100% on room air today. (3) Hyperkalemia Is this a current diagnosis for this admission?: Yes Plan: Resolved 09/28/2019 Currently normokalemic. Continue to monitor. 09/29/2019-serum potassium today is 4.5. Hyperkalemia is resolved. 10/03/19-serum potassium today 4.2. Hyperkalemia resolved. (4) Aortic stenosis Qualifiers: Cardiac valve disease etiology: etiology unspecified Qualified Code(s): I35.0 - Nonrheumatic aortic (valve) stenosis Is this a current diagnosis for this admission?: No Plan: As previously noted, will attempt to find records to see if he had his aortic valve replaced 09/28/2019 There is no metallic valve click. We will try to avoid hypotension. 09/30/2019-blood pressure today is 116/65. Stable. (5) History of DVT (deep vein thrombosis) Is this a current diagnosis for this admission?: No Plan: Continue Eliquis 09/28/2019 No change at this time. September 28, 2019 The patient in fact is not on Eliquis. I could not find any evidence of an anticoagulants in the medication reconciliation or medication summary. 09/29/2019-patient has history of DVT not on Eliquis at this time. Not on anticoagulation at this time. Plan is to do bilateral lower leg venous Doppler today. 09/30/2019-DVT studies are negative in both lower extremities. Patient is not on anticoagulation at this time.
[2019-10-03] MEDS: FUROSEMIDE 20 MG TABLET PO SCH (10:47)
[2019-10-03] MEDS: FLUTICASONE/VILANTEROL 200-25 MCG/DOSE IH SCH (10:47)
[2019-10-03] MEDS: FERROUS SULFATE 325 MG TABLET PO SCH (10:47)
[2019-10-03] MEDS: LOSARTAN POTASSIUM 50 MG TABLET PO SCH (10:47)
[2019-10-03] MEDS: PREDNISONE 10 MG TABLET PO SCH (10:47)
[2019-10-03 14:54] VITALS: BP 107/63
--- NOTE | 2019-10-03 15:06 | PDOC DISCHARGE SUMMARY ---
Impression - Admit/DC Date/PCP Admission Date/Primary Care Provider: 09/23/19 17:32 [facility] Discharge Date: 10/03/19 - Discharge Diagnosis (1) COPD with acute exacerbation Is this a current diagnosis for this admission?: Yes (2) Pulmonary asbestosis Is this a current diagnosis for this admission?: No (3) Hyperkalemia Is this a current diagnosis for this admission?: Yes (4) Aortic stenosis Is this a current diagnosis for this admission?: No (5) History of DVT (deep vein thrombosis) Is this a current diagnosis for this admission?: No - Assessment Summary: (1) COPD with acute exacerbation Is this a current diagnosis for this admission?: Yes Plan: We will continue steroids and bronchodilators. I have resumed his home medications. 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 We will continue his steroids for another day and then they can be stopped September 28, 2019 Steroids decreased today. He is on Brio Ellipta. He may resume some scheduled nebulizer treatments as he still seems to be tachypneic. 09/29/2019-patient admitted with COPD with exacerbation. Presently on 2 L oxygen pulse ox is 100%. Patient has history of exposure to asbestosis. Presently on DuoNeb nebulizations scheduled and as needed, IV Solu-Medrol 40 mg daily. He is also on a Breo inhaler daily. PPD was placed for placement. Comfortably in the bed communicating well. 09/30/2019-patient is comfortable in the chair communicating well. Not in dis tress. Pulse ox is 100% on 2 L. Is to discontinue IV Solu-Medrol from today to place him on p.o. prednisone 10 mg twice a day from this morning. 10/01/2019-patient has history of COPD pulse ox is 100% on room air. Stable. 10/02/2019-patient has history of COPD pulse ox is 100% on 2 L. On examination bilateral entry was decreased no wheezing no crepitations present. 10/03/2019-pulse ox today is 98% 2 L. Without oxygen pulse ox is dropping. Requested the nurse to check for home oxygen requirements. 10/03/2019-pulse ox today is 98% on 2 L home oxygen requirements are tested and patient does not qualify for home oxygen at this time. (2) Pulmonary asbestosis Is this a current diagnosis for this admission?: No Plan: He is on Symbicort and as needed albuterol inhaler at home. He has chronic fibrosis and I do not know if this is going to get any better, it is unlikely that it will. He has a lot of trouble performing his ADLs and is interested in assisted living. Case management has been consulted. September 28, 2019 Continue Brio Ellipta. I did restart some scheduled nebulizers to see if we could use since breathing somewhat. With underlying fibrosis it is unlikely to make a significant improvement but it is certainly worth a try. Because of the debilitation that his respiratory status causes him is considering moving to an assisted living facility. Because of the abnormal chest x-ray I have ordered a screening PPD. He has already tested COVID negative. 09/29/19 Kober test is pending. And is presently on 2 L oxygen via nasal cannula. 10/01/2019-pulse ox is 100% on room air today. (3) Hyperkalemia Is this a current diagnosis for this admission?: Yes Plan: Resolved 09/28/2019 Currently normokalemic. Continue to monitor. 09/29/2019-serum potassium today is 4.5. Hyperkalemia is resolved. 10/03/19-serum potassium today 4.2. Hyperkalemia resolved. (4) Aortic stenosis Qualifiers: Cardiac valve disease etiology: etiology unspecified Qualified Code(s): I35.0 - Nonrheumatic aortic (valve) stenosis Is this a current diagnosis for this admission?: No Plan: As previously noted, will attempt to find records to see if he had his aortic valve replaced 09/28/2019 There is no metallic valve click. We will try to avoid hypotension. 09/30/2019-blood pressure today is 116/65. Stable. (5) History of DVT (deep vein thrombosis) Is this a current diagnosis for this admission?: No Plan: Continue Eliquis 09/28/2019 No change at this time. September 28, 2019 The patient in fact is not on Eliquis. I could not find any evidence of an anticoagulants in the medication reconciliation or medication summary. 09/29/2019-patient has history of DVT not on Eliquis at this time. Not on anticoagulation at this time. Plan is to do bilateral lower leg venous Doppler today. 09/30/2019-DVT studies are negative in both lower extremities. Patient is not on anticoagulation at this time. 10/03/2019-DVT studies during the hospital stay , ruled out DVT. Patient is not on anticoagulation at this time. - Additional Information Discharge Diet: As Tolerated, Regular Discharge Activity: Activity As Tolerated, Balance Activity w/Rest, Slowly Increase Activity [facility]errals: [facility] [[facility]] - Follow up as needed Prescriptions: Furosemide [Lasix 20 mg Tablet] 10 mg PO DAILY #30 tablet Home Medications: Budesonide/Formoterol Fumarate [Symbicort HFA 160-4.5 mcg Inhaler 6 gm] 2 puff IH Q12 11/09/17 Atorvastatin Calcium [Lipitor 20 mg Tablet] 20 mg PO QHS 09/24/19 Ferrous Sulfate [Feosol 325 mg Tablet] 325 mg PO DAILY 09/24/19 Ipratropium/Albuterol Sulfate [Combivent Respimat 4 gm Mdi] 2 puff PO Q4HP PRN 09/24/19 Losartan Potassium 100 mg PO DAILY 09/24/19 Mupirocin Calcium [Bactroban 2% Cream 15 gm] 1 applic TP TID 09/24/19 Furosemide [Lasix 20 mg Tablet] 10 mg PO DAILY #30 tablet 10/03/19 History of Present Illiness History of Present Illness: TERESA MUNOZ is a 83 year old male 83 year old male with a history of asbestosis and COPD, aortic stenosis and coronary artery disease status post open heart surgery but he does not know if it was for his heart valve for his CAD, hypertension, and 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 He said it has been going on for "a while," but he thinks is been getting progressively worse over the past month or so. He has a lot of dyspnea on exertion. He has not had any swelling of his legs. He has not had any cough. No fevers. He fell he got a skin tear on his right arm and had been going to [facility] to get the wound dressed. He said he was going to their office today and they saw that he was short of breath and so they sent him over to the emergency department. He has a chronically elevated BNP. His chest x-ray shows a bunch of chronic findings but nothing new. His creatinine is elevated a little bit above baseline. He said he is not been drinking as much fluids so he does not have to get up and go to the bathroom as often. 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 He said it has been going on for "a while," but he thinks is been getting progressively worse over the past month or so. He has a lot of dyspnea on exertion. He has not had any swelling of his legs. He has not had any cough. No fevers. He fell he got a skin tear on his right arm and had been going to [facility] to get the wound dressed. He said he was going to their office today and they saw that he was short of breath and so they sent him over to the emergency department. He has a chronically elevated BNP. His chest x-ray shows a bunch of chronic findings but nothing new. His creatinine is elevated a little bit above baseline. He said he is not been drinking as much fluids so he does not have to get up and go to the bathroom as often. 09/23-No adverse events overnight. No new complaints. Vital signs been stable. He is comfortable at rest but any exertion causes him to get very short of breath. He said he be interested in getting into an assisted living facility because he says just getting his clothes on every day requires a lot of effort. 09/24-No adverse events overnight. No new complaints. Vital signs been stable. He is comfortable at rest, says he feels like his breathing is getting a little bit better. He is not tried to get up and move around too much today. 09/25-No adverse events overnight. No new complaints. He said he is feeling a little bit better he is coughing up some phlegm but he still gets short of breath with the least exertion. If it a hard time picking up his heart rate on the monitor and often it looks like he is in asystole when really his heart rates in the 80s. He also when he exerts himself his heart rate shoots up really high but it always recovers. On the monitor his heart rate is been bouncing around some today but has been asymptomatic. 09/26-No adverse events overnight. No new complaints. He said he is feeling a little bit better. He is able to sit up on the edge of the bed and eat a little bit. He takes breaks while he is eating to help with his breathing. 09/27-The patient reports that he still feels short of breath. He is still on nasal cannula. He believes he is not as tachypneic as he previously was. 09/29/2019-patient is comfortably in the bed communicating well. Pulse ox is 100% on 2 L. He is on Eliquis for DVT. Cultures are negative so far. PPD was placed for placement. 09/30/2019-patient is comfortable in the chair communicating well. Expressing desire to go home. PPD was done for possible placement waiting for the approval. No acute events in the last 24 hours. 10/01/2019-patient is comfortably in the chair eating breakfast. Again expressing desire to go home. Plan is to discharge him to long-term care facility like assisted living. PPD was done which was negative. 10/02/2019-patient is waiting for placement. PPD is negative. No acute events in the last 24 hours. Blood pressures are stable. 10/03/2019-patient is waiting for placement. PPD is negative. If the placement is not available then patient may end up going home. 10/03/2019-it risk and assurance senior manager called me to notify that patient can go home today from there he can go to the assisted living. Test was done from oxygen requirements it does not meet the criteria. Patient agreed to go home today with home health. Physical Exam Vital Signs: Temp Pulse Resp BP Pulse Ox 97.5 F 85 20 107/63 95 10/03/19 14:43 10/03/19 14:43 10/03/19 14:43 10/03/19 14:43 10/03/19 14:43 Pulse Oximeter Ambulatory Start: 09/28/19 13:08 Freq: RTDAILY Status: Active Protocol: Document 10/02/19 08:00 VIVIANA (Rec: 10/02/19 16:44 J [email or web address]) Exercise Oximetry Treatment Ambulating SpO2 Charge Now No Oxygen Delivery Method Room Air FIO2 (% Oxygen) 21 Resting O2 Saturation by Pulse Oximetry 91 Additional RT Notes Other pt doesn't feel like himself and request not walk right now . Intake & Output 10/02/19 10/03/19 10/04/19 06:59 06:59 06:59 Intake Total 840 960 240 Output Total 2500 850 Balance -1660 110 240 Weight 67.5 kg 67.2 kg General appearance: PRESENT: no acute distress, thin Head exam: PRESENT: atraumatic Eye exam: PRESENT: PERRLA Ear exam: PRESENT: normal external ear exam Mouth exam: PRESENT: neck supple Teeth exam: PRESENT: poor dentation Neck exam: ABSENT: carotid bruit, JVD, lymphadenopathy, thyromegaly Respiratory exam: PRESENT: decreased breath sounds Cardiovascular exam: PRESENT: RRR. ABSENT: diastolic murmur, rubs, systolic murmur GI/Abdominal exam: PRESENT: normal bowel sounds, soft. ABSENT: distended, guarding, mass, organolmegaly, rebound, tenderness Rectal exam: PRESENT: deferred Extremities exam: PRESENT: full ROM. ABSENT: calf tenderness, clubbing, pedal edema Neurological exam: PRESENT: alert, awake, oriented to person, oriented to place, oriented to time, oriented to situation, CN II-XII grossly intact. ABSENT: motor sensory deficit Psychiatric exam: PRESENT: appropriate affect, normal mood. ABSENT: homicidal ideation, suicidal ideation Results Laboratory Results: WBC 7.8 10^3/uL (4.0-10.5) 09/29/19 05:47 RBC 3.56 10^6/uL (4.35-5.55) L 09/29/19 05:47 Hgb 11.6 g/dL (13.5-17.0) L 09/29/19 05:47 Hct 34.5 % (37.9-51.0) L 09/29/19 05:47 MCV 97 fl (80-97) 09/29/19 05:47 MCH 32.4 pg (27.0-33.4) 09/29/19 05:47 MCHC 33.5 g/dL (32.0-36.0) 09/29/19 05:47 RDW 16.0 % (11.5-14.0) H 09/29/19 05:47 Plt Count 134 10^3/uL (150-450) L 09/29/19 05:47 Lymph % (Auto) 5.8 % (13-45) L 09/29/19 05:47 Kleberg % (Auto) 9.7 % (3-13) 09/29/19 05:47 Eos % (Auto) 0.1 % (0-6) 09/29/19 05:47 Baso % (Auto) 0.1 % (0-2) 09/29/19 05:47 Absolute Neuts (auto) 6.6 10^3/uL (1.7-8.2) 09/29/19 05:47 Absolute Lymphs (auto) 0.5 10^3/uL (0.5-4.7) 09/29/19 05:47 Absolute Monos (auto) 0.8 10^3/uL (0.1-1.4) 09/29/19 05:47 Absolute Eos (auto) 0.0 10^3/uL (0.0-0.6) 09/29/19 05:47 Absolute Basos (auto) 0.0 10^3/uL (0.0-0.2) 09/29/19 05:47 Seg Neutrophils % 84.3 % (42-78) H 09/29/19 05:47 Carbonic Acid 1.16 mmol/L (1.05-1.35) 09/23/19 14:04 HCO3/H2CO3 Ratio 21:1 09/23/19 14:04 ABG pH 7.42 (7.35-7.45) 09/23/19 14:04 ABG pCO2 38.5 mmHg (35-45) 09/23/19 14:04 ABG pO2 83.6 mmHg (80-100) 09/23/19 14:04 ABG HCO3 24.6 mmol/L (20-24) H 09/23/19 14:04 ABG Total CO2 25.8 mmol/L (23-27) 09/23/19 14:04 ABG O2 Saturation 96.5 % (94-98) 09/23/19 14:04 ABG Base Excess 0.4 mmol/L 09/23/19 14:04 FiO2 ROOM AIR 09/23/19 14:04 Sodium 135.8 mmol/L (137-145) L 09/29/19 05:47 Potassium 4.5 mmol/L (3.6-5.0) 09/29/19 05:47 Chloride 107 mmol/L (98-107) 09/29/19 05:47 Carbon Dioxide 27 mmol/L (22-30) 09/29/19 05:47 Anion Gap 2 (5-19) L 09/29/19 05:47 BUN 36 mg/dL (7-20) H 09/29/19 05:47 Creatinine 1.08 mg/dL (0.52-1.25) 09/29/19 05:47 Est GFR ( Amer) > 60 (>60) 09/29/19 05:47 Est GFR (MDRD) Non-Af > 60 (>60) 09/29/19 05:47 Glucose 108 mg/dL (75-110) 09/29/19 05:47 Calcium 8.6 mg/dL (8.4-10.2) 09/29/19 05:47 Magnesium 2.6 mg/dL (1.6-2.3) H 09/29/19 05:47 Total Bilirubin 1.7 mg/dL (0.2-1.3) H 09/23/19 14:04 Direct Bilirubin 0.1 mg/dL (0.0-0.4) 09/23/19 14:04 Neonat Total Bilirubin Not Reportable 09/23/19 14:04 Neonat Direct Bilirubin Not Reportable 09/23/19 14:04 Neonat Indirect Bili Not Reportable 09/23/19 14:04 AST 34 U/L (17-59) 09/23/19 14:04 ALT 20 U/L (<50) 09/23/19 14:04 Alkaline Phosphatase 90 U/L (38-126) 09/23/19 14:04 Troponin I 0.084 ng/mL 09/23/19 14:04 NT-Pro-B Natriuret Pep 5230 pg/mL (<450) H 09/23/19 14:04 Total Protein 8.0 g/dL (6.3-8.2) 09/23/19 14:04 Albumin 2.9 g/dL (3.5-5.0) L 09/29/19 05:47 COVID-19 Source NASOPHARYNGEAL 09/23/19 14:04 COVID-19 ([place]) NOT DETECTED 09/23/19 14:04 09/23/19 14:04 Troponin I 0.084 NT-Pro-B Natriuret Pep 5230 H Impressions: Chest X-Ray 09/23/19 00:00 IMPRESSION: Small bilateral pleural effusions, increased from prior. Chronic additional interstitial changes without definitive superimposed airspace disease. Venous Doppler Study 09/29/19 00:00 IMPRESSION: NO EVIDENCE DVT OR SVT IN EITHER LEG. Plan Time Spent: Greater than 30 Minutes Stroke Is this a Stroke Patient?: No Acute Heart Failure - Is this a Heart Failure Patient?: No
== END 2019-10-03 17:00 | disposition home health service (06) | DRG 191 ==
LOC: ER 10:16 → EH 17:32 → 3N 20:03 → 3S 09-26 18:18
PROVIDERS: ADMIT Hospitalist; ATTEND Internal Medicine
DX: J44.1 Chronic obstructive pulmonary disease with (acute) exacerbation (principal); N17.9 Acute kidney failure, unspecified; I11.0 Hypertensive heart disease with heart failure; I50.9 Heart failure, unspecified; J61 Pneumoconiosis due to asbestos and other mineral fibers; E87.5 Hyperkalemia; I35.0 Nonrheumatic aortic (valve) stenosis; Z20.828 Contact with and (suspected) exposure to other viral communicable diseases; I25.10 Atherosclerotic heart disease of native coronary artery without angina pectoris; S41.101A Unspecified open wound of right upper arm, initial encounter; W19.XXXA Unspecified fall, initial encounter; M19.90 Unspecified osteoarthritis, unspecified site; Z86.718 Personal history of other venous thrombosis and embolism; Z79.51 Long term (current) use of inhaled steroids; Z79.899 Other long term (current) drug therapy; Z79.01 Long term (current) use of anticoagulants; Z91.81 History of falling; Z79.82 Long term (current) use of aspirin; Z88.0 Allergy status to penicillin; Z88.8 Allergy status to other drugs, medicaments and biological substances; Z95.5 Presence of coronary angioplasty implant and graft
CPT/HCPCS: 36415; 71045; 80048; 80053; 82040; 82803; 83735; 83880; 84484; 85025; 87040; 87635; 93005; 93010; 93970; 94640; 94761; 94799; 96365; 99285; C9803; J0696; J2920; J3490; J7030; J7512

== ENCOUNTER 2019-10-05 09:55 | Observation (INO) | payer OTHER, MEDICARE ==
--- NOTE | 2019-10-05 10:34 | ER Document Report ---
ED General - General Chief Complaint: Shortness Of Breath Stated Complaint: SHORTNESS OF BREATH Time Seen by Provider: 10/05/19 10:08 Primary Care Provider: MARTHA,BLAISE [Primary Care Provider] - Follow up as needed Notes: 83-year-old male with CHF and pulmonary asbestosis presents with worsening dyspnea and fatigue over the last couple of days. He says he cannot function. He has no worse cough than usual, no fever no chest pain no leg swelling. He is on all his normal medicines. He is not on oxygen at home. He was tested for COVID in the last 3 to 4 days and was negative and has no known exposures. TRAVEL OUTSIDE OF THE [place] IN LAST 30 DAYS: No - Related Data Allergies/Adverse Reactions: Penicillins Allergy (Verified 10/05/18 10:15) pravastatin [Pravastatin] Allergy (Verified 10/05/18 10:15) Past Medical History - General Information source: Patient - Social History Smoking Status: Current Some Day Smoker Family History: Reviewed & Not Pertinent Patient has homicidal ideation: No - Past Medical History Cardiac Medical History: Reports: Hx Congestive Heart Failure, Hx Coronary Artery Disease, Hx DVT, Hx Hypercholesterolemia, Hx Hypertension Pulmonary Medical History: Reports: Hx Asthma, Hx COPD - Asbestosis Denies: Hx Tuberculosis Endocrine Medical History: Denies: Hx Diabetes Mellitus Type 1, Hx Diabetes Mellitus Type 2 Renal/ Medical History: Denies: Hx Peritoneal Dialysis Musculoskeletal Medical History: Reports Hx Arthritis Psychiatric Medical History: Denies: Hx Anxiety, Hx Depression Past Surgical History: Reports: Hx Cardiac Catheterization, Hx Cardiac Surgery - Two cardiac stents. Denies: Hx Pacemaker - Immunizations Hx Pneumococcal Vaccination: 11/28/10 Review of Systems - Review of Systems Notes: REVIEW OF SYSTEMS GEN: Denies fever, chills, weight loss ENT: Denies sore throat, nasal discharge, ear pain EYES: Denies blurry vision, eye pain, discharge CV: Denies chest pain, palpitations, edema RESP: Acute on chronic shortness of breath GI: Denies abdominal pain, nausea, vomiting, diarrhea MSK: Denies joint pain/swelling, edema, SKIN: Denies rash, skin lesions LYMPH: Denies swollen glands/lymph nodes NEURO: Denies headache, focal weakness or numbness, dizziness PSYCH: Denies depression, suicidal or homicidal ideation PHYSICAL EXAMINATION Telemetry medicine exam done via iPad in the emergency department without entering patient room General: No acute distress, well-nourished Head: Atraumatic, normocephalic ENT: Mouth normal, oropharynx moist, lips normal Eyes: Conjunctiva normal, pupils equal, lids normal Neck: No JVD, supple, no guarding Resp: No resp distress, equal chest rise, diminished at bases per nurse GI: Nondistended, no guarding Back: No midline or CVA tenderness Ext: No deformities, no edema Skin: Well-perfused, no rash Neuro: Awake, alert. Face symmetric. Physical Exam - Vital signs Vitals: Resp BP Pulse Ox 17 125/77 95 10/05/19 10:15 10/05/19 10:15 10/05/19 10:15 Course - Re-evaluation Re-evalutation: 10/05/19 10:33 Acute on chronic dyspnea with a history of chronic lung disease likely reflects acute on chronic hypoxic respiratory failure from asbestosis, however CHF is also a consideration as his COPD and COVID-19 We will check BNP and chest x-ray to rule out heart failure as well Doubt anginal equivalent. Will check for anemia Not requiring supplemental O2 in the ED. 10/05/19 14:57 Seems like the patient was supposed to go to a senior living but he did not qualify for this or home O2 and was discharged without them. I discussed him with Dr. Bernardo, who is on the inpatient team who cared for the patient and he agrees the patient will need placement. He has agreed to admit the patient. I do not think he needs any interventions right now other than supportive oxygen as needed. Send a COVID swab. - Vital Signs Vital signs: Temp Pulse Resp BP Pulse Ox 98.7 F 92 26 H 142/78 H 100 10/05/19 10:36 10/05/19 10:36 10/05/19 14:01 10/05/19 14:01 10/05/19 14:01 - Laboratory Result Diagrams: 10/05/19 12:43 10/05/19 10:28 Laboratory results interpreted by me: 10/05/19 10/05/19 10/05/19 10:28 10:28 12:43 WBC 15.3 H RBC 3.53 L Hgb 11.4 L Hct 34.4 L RDW 16.1 H Plt Count 71 L Seg Neuts % (Manual) 93 H Lymphocytes % (Manual) 2 L Abs Neuts (Manual) 14.2 H Abs Lymphs (Manual) 0.3 L Sodium 131.5 L Chloride 96 L BUN 27 H Glucose 147 H Total Bilirubin 2.3 H NT-Pro-B Natriuret Pep 7380 H - Diagnostic Test Radiology reviewed: Image reviewed, Reports reviewed - EKG Interpretation by Me EKG shows normal: Sinus rhythm Rate: Normal Rhythm: NSR When compared to previous EKG there are: Previous EKG unavailable Discharge - Discharge Clinical Impression: Chronic respiratory failure Qualifiers: Respiratory failure complication: hypoxia Qualified Code(s): J96.11 - Chronic respiratory failure with hypoxia Condition: Good Disposition: ADMITTED OBSERVATION Admitting Provider: Az (Hospitalist) Unit Admitted: Telemetry [facility] [[facility]] - Follow up as needed
--- NOTE | 2019-10-05 10:55 | RADIOLOGY REPORT (SQ) ---
EXAM DESCRIPTION: CHEST SINGLE VIEW IMAGES COMPLETED DATE/TIME: 10/05/2019 10:45 am REASON FOR STUDY: shortness of breath COMPARISON: 09/23/2019 EXAM PARAMETERS: NUMBER OF VIEWS: One view. TECHNIQUE: Single frontal radiographic view of the chest acquired. RADIATION DOSE: NA LIMITATIONS: None. FINDINGS: LUNGS AND PLEURA: Mild to moderate loculated right-sided pleural effusion common minimally increased from prior. Trace left effusion. Patchy right mid lung and basilar opacities. Unremarka ble left hemithorax. No pneumothorax. MEDIASTINUM AND HILAR STRUCTURES: No masses. Contour normal. HEART AND VASCULAR STRUCTURES: Normal heart size. Central vascular congestion without overt edema. BONES: Sternotomy changes. No acute findings. HARDWARE: Sternotomy hardware. Aortic valvular prosthesis. OTHER: No other significant finding. IMPRESSION: Mild to moderate loculated right-sided effusion, minimally increased from prior. Trace left effusion. Central vascular congestion without overt edema. TECHNICAL DOCUMENTATION: JOB ID: [id number] 2010 [employer]- All Rights Reserved Reading location - IP/workstation name: [email or web address]
[2019-10-05 11:54] LABS: ALBUMIN 3.7 g/dL (3.5-5.0); ALKALINE PHOSPHATASE 64 U/L (38-126); ANION GAP 7 (5-19); ASPARTATE AMINO TRANSFERASE 33 U/L (17-59); BILIRUBIN,TOTAL 2.3 mg/dL (0.2-1.3); BLOOD UREA NITROGEN 27 mg/dL (7-20); CALCIUM 8.7 mg/dL (8.4-10.2); CARBON DIOXIDE 29 mmol/L (22-30); CHLORIDE 96 mmol/L (98-107); GLUCOSE 147 mg/dL (75-110); POTASSIUM 4.6 mmol/L (3.6-5.0)
[2019-10-05 13:11] LABS: HEMATOCRIT 34.4 % (37.9-51.0); HEMOGLOBIN 11.4 g/dL (13.5-17.0); MEAN CORPUSCULAR HEMOGLOBIN 32.2 pg (27.0-33.4); MEAN CORPUSCULAR HGB CONC 33.1 g/dL (32.0-36.0); MEAN CORPUSCULAR VOLUME 97 fl (80-97); RED BLOOD COUNT 3.53 10^6/uL (4.35-5.55); RED CELL DISTRIBUTION WIDTH 16.1 % (11.5-14.0); WHITE BLOOD COUNT 15.3 10^3/uL (4.0-10.5)
[2019-10-05 13:30] LABS: PLATELET COUNT 71 10^3/uL (150-450)
[2019-10-05 13:38] LABS: ABSOLUTE LYMPHOCYTES# (MANUAL) 0.3 10^3/uL (0.5-4.7); ABSOLUTE MONOCYTES # (MANUAL) 0.8 10^3/uL (0.1-1.4); BASOPHILS % (MANUAL) 0 % (0-2); EOSINOPHILS % (MANUAL) 0 % (0-6); LYMPHOCYTES % (MANUAL) 2 % (13-45); MONOCYTES % (MANUAL) 5 % (3-13); SEGMENTED NEUTROPHILS % (MAN) 93 % (42-78); TOTAL CELLS COUNTED 100
[2019-10-05 13:42] LABS: ANISOCYTOSIS 1+; OVALOCYTES SLIGHT; POIKILOCYTOSIS 2+
[2019-10-05 13:43] LABS: PLATELET COMMENT DECREASED
--- NOTE | 2019-10-05 14:07 | RADIOLOGY REPORT (SQ) ---
EXAM DESCRIPTION: CTA CHEST IMAGES COMPLETED DATE/TIME: 10/05/2019 1:43 pm REASON FOR STUDY: SOB, pl effusion shortness of breath COMPARISON: CT angio chest 11/07/2017 Chest films 10/05/2019, 09/23/2019 TECHNIQUE: CT scan of the chest performed using helical scanning technique with dynamic intravenous contrast injection. Images reviewed with lung, soft tissue and bone windows. Reconstructed coronal and sagittal MPR images reviewed. Additional 3 dimensional post-processing performed to develop Maximal Intensity Projection images (ME P). All images stored on PACS. All CT scanners at this facility use dose modulation, iterative reconstruction, and/or weight based d osing when appropriate to reduce radiation dose to as low as reasonably achievable (ALARA). [facility]: Dose Right [facility]: CareDose [facility]: Dose Right [facility]: Teradose 4D [facility]: Shahab P. Tabatabai, Broker CONTRAST TYPE AND DOSE: contrast/concentration: Isovue 350.00 mmol/ml; Total Contrast Delivered: 26. 5 ml; Total Saline Delivered: 30.0 ml Suboptimal contrast bolus RENAL FUNCTION: Creatinine 1.0 RADIATION DOSE: CT Rad equipment meets quality standard of care and radiation dose reduction techniq ues were employed. CTDIvol: 9.9 - 18.6 mGy. DLP: 718 mGy-cm. . LIMITATIONS: Suboptimal contrast bolus FINDINGS: LUNGS AND PLEURA: Moderate size freely layering right pleural effusion. Small left pleura l effusion with loculation in the major fissure and posterior costophrenic sulci. Patchy pleural calcification is present bilaterally. Partial collapse of the right lower lobe is present, minimal left posterior basilar atelectasis. Indigo gs otherwise well inflated and clear. No pneumothorax. Airways are AORTA AND GREAT VESSELS: No gross thoracic aortic dissection or aneurysm. HEART: No pericardial effusion. Prior sternotomy for CABG. Aortic valve replacement. PULMONARY ARTERIES: Very limited contrast bolus. No emboli to the main, or right or left proximal pu lmonary arteries. No gross proximal segmental pulmonary emboli. HILAR AND MEDIASTINAL STRUCTURES: No identified masses or abnormal nodes. HARDWARE: None in the chest. UPPER ABDOMEN: No significant findings. Limited exam. THYROID AND OTHER SOFT TISSUES: No masses. No adenopathy. BONES: No acute or significant finding. 3D MIPS: Confirm above findings. OTHER: No other significant finding. IMPRESSION: No gross CT angio evidence of acute pulmonary embolus. Limited contrast bolus. No thoracic aortic dissection Bilateral pleural effusions right greater than left. Bibasilar probable atelectasis COMMENT: Quality ID # [id number]: Final reports with documentation of one or more dose reduction techniques (e.g., Automated exposure control, adjustment of the mA and/or kV according to patient size, use of iterative reconstruction technique) TECHNICAL DOCUMENTATION: JOB ID: [id number] 2010 [employer]- All Rights Reserved Reading location - IP/workstation name: [id number]
--- NOTE | 2019-10-05 14:17 | PDOC H&P ---
History of Present Illness Admission Date/PCP: [facility] History of Present Illness: TERESA MUNOZ is a 83 year old male with end-stage pulmonary fibrosis and chronic hypoxemic respiratory failure who somehow managed to go home a couple of days ago without home oxygen. Apparently he wanted to go to assisted living but did not want to have to pay for it, which is not how it works. He therefore went home instead without home oxygen or any home assistance, when he can get up and walk more than a few feet without getting severely short of breath. He called EMS because he was in the same shape at home and could not perform any of his ADLs. He has had no deterioration in his clinical condition since he left, he is just no better off than whenever he first came in. Past Medical History Cardiac Medical History: Reports: Congestive Heart Failure, Coronary Artery Disease, DVT, Hyperlipidema, Hypertension Pulmonary Medical History: Reports: Asthma, Chronic Obstructive Pulmonary Disease (COPD) - Asbestosis Denies: Tuberculosis Endocrine Medical History: Denies: Diabetes Mellitus Type 1, Diabetes Mellitus Type 2 Musculoskeltal Medical History: Reports: Arthritis Psychiatric Medical History: Denies: Depression Past Surgical History Past Surgical History: Reports: Cardiac Catheterization Denies: Pacemaker Social History Smoking Status: Current Some Day Smoker Frequency of Alcohol Use: None Hx Recreational Drug Use: No Drugs: None Hx Prescription Drug Abuse: No Family History Family History: Reviewed & Not Pertinent Parental Family History Reviewed: Yes Children Family History Reviewed: Yes Sibling(s) Family History Reviewed.: Yes Medication/Allergy Home Medications: Budesonide/Formoterol Fumarate [Symbicort HFA 160-4.5 mcg Inhaler 6 gm] 2 puff IH Q12 11/09/17 Atorvastatin Calcium [Lipitor 20 mg Tablet] 20 mg PO QHS 09/24/19 Ferrous Sulfate [Feosol 325 mg Tablet] 325 mg PO DAILY 09/24/19 Ipratropium/Albuterol Sulfate [Combivent Respimat 4 gm Mdi] 2 puff PO Q4HP PRN 09/24/19 Losartan Potassium 100 mg PO DAILY 09/24/19 Mupirocin Calcium [Bactroban 2% Cream 15 gm] 1 applic TP TID 09/24/19 Furosemide [Lasix 20 mg Tablet] 10 mg PO DAILY #30 tablet 10/03/19 Allergies/Adverse Reactions: Penicillins Allergy (Verified 10/05/18 10:15) pravastatin [Pravastatin] Allergy (Verified 10/05/18 10:15) Review of Systems All systems: reviewed and no additional remarkable complaints except as stated - All systems were reviewed and were negative except as noted in HPI Physical Exam Vital Signs: Temp Pulse Resp BP Pulse Ox 98.7 F 92 26 H 125/77 95 10/05/19 10:36 10/05/19 10:36 10/05/19 10:36 10/05/19 10:36 10/05/19 10:36 General appearance: PRESENT: no acute distress, cooperative, disheveled Head exam: PRESENT: atraumatic, normocephalic Eye exam: PRESENT: EOMI, PERRLA. ABSENT: conjunctival injection, nystagmus, scleral icterus Ear exam: PRESENT: normal external ear exam Mouth exam: PRESENT: dry mucosa, neck supple Teeth exam: PRESENT: poor dentation Throat exam: ABSENT: post pharyngeal erythema Neck exam: ABSENT: carotid bruit, full ROM - Somewhat limited due to arthritis, JVD, lymphadenopathy, meningismus, tenderness, thyromegaly Respiratory exam: PRESENT: decreased breath sounds, symmetrical. ABSENT: accessory muscle use, chest wall tenderness, crackles, prolonged expiratory phas, rhonchi, tachypnea, unlabored, wheezes Cardiovascular exam: PRESENT: RRR, +S1, +S2 Pulses: PRESENT: normal carotid pulses Vascular exam: PRESENT: normal capillary refill GI/Abdominal exam: PRESENT: normal bowel sounds, soft. ABSENT: distended, guarding, rebound, tenderness Extremities exam: ABSENT: clubbing, pedal edema Musculoskeletal exam: PRESENT: normal inspection. ABSENT: deformity Neurological exam: PRESENT: alert, awake, oriented to person, oriented to place, oriented to situation, CN II-XII grossly intact. ABSENT: motor sensory deficit Psychiatric exam: PRESENT: appropriate affect, normal mood Skin exam: PRESENT: dry, warm Results Laboratory Results: 10/05/19 12:43 10/05/19 10:28 10/05/19 10/05/19 10/05/19 10:28 10:28 12:43 WBC Cancelled 15.3 H RBC Cancelled 3.53 L Hgb Cancelled 11.4 L Hct Cancelled 34.4 L MCV Cancelled 97 MCH Cancelled 32.2 MCHC Cancelled 33.1 RDW Cancelled 16.1 H Plt Count Cancelled 71 L Seg Neutrophils % Cancelled Not Reportable Sodium 131.5 L Potassium 4.6 Chloride 96 L Carbon Dioxide 29 Anion Gap 7 BUN 27 H Creatinine 0.97 Est GFR ( Amer) > 60 Glucose 147 H Calcium 8.7 Total Bilirubin 2.3 H AST 33 Alkaline Phosphatase 64 Total Protein 7.0 Albumin 3.7 10/05/19 10:28 NT-Pro-B Natriuret Pep 7380 H Impressions: Chest X-Ray 10/05/19 10:05 IMPRESSION: Mild to moderate loculated right-sided effusion, minimally increased from prior. Trace left effusion. Central vascular congestion without overt edema. Chest/Abdomen CTA 10/05/19 12:34 IMPRESSION: No gross CT angio evidence of acute pulmonary embolus. Limited contrast bolus. No thoracic aortic dissection Bilateral pleural effusions right greater than left. Bibasilar probable atelectasis Assessment and Plan - Diagnosis (1) Chronic respiratory failure Qualifiers: Respiratory failure complication: hypoxia Qualified Code(s): J96.11 - Chronic respiratory failure with hypoxia Is this a current diagnosis for this admission?: Yes (2) Aortic stenosis Qualifiers: Cardiac valve disease etiology: etiology unspecified Is this a current diagnosis for this admission?: Yes (3) Pulmonary asbestosis Is this a current diagnosis for this admission?: Yes - Plan Summary Summary: He has chronic hypoxemic respiratory failure from end-stage pulmonary fibrosis. He apparently has a source of income but does not want to part with it, yet still wants to go to assisted living. It needs to be reinforced to him by anyone interact with him that if he wants to go to assisted living, he is going to have to pay for it, and given his current condition, it seems like a small trade to make given the level of care he currently needs. He cannot take care of himself at home, and he unfortunately has a disease that is not going to improve. We will once again try to get him into assisted living, and this time to qualify him for home oxygen he is going to have to walk to perform the test to get him qualified. Apparently last time he did not want to do that and that will no if it was made clear to him that in order for him to qualify he has to perform this test. - Time Time Spent with patient: 35 or more minutes
[2019-10-05] MEDS ORDERED: HEPARIN SOD (PORCINE) 5,000 UNIT/ML 1 ML VIAL SUBCUT ONE (14:30)
--- NOTE | 2019-10-05 16:22 | EKG REPORT ---
SEVERITY:- ABNORMAL ECG - SINUS RHYTHM ABNRM R PROG, CONSIDER ASMI OR LEAD PLACEMENT BORDERLINE T ABNORMALITIES, INFERIOR LEADS : Confirmed by: Ian Garcia MD 05-Oct-2019 16:22:05
[2019-10-05] MEDS: HEPARIN SOD (PORCINE) 5,000 UNIT/ML 1 ML VIAL SUBCUT SCH (22:36)
[2019-10-06] MEDS: HEPARIN SOD (PORCINE) 5,000 UNIT/ML 1 ML VIAL SUBCUT SCH ×2 (05:44→15:38)
[2019-10-06] MEDS ORDERED: ALBUTEROL SULFATE PO PRN (08:25)
[2019-10-06] MEDS ORDERED: IPRATROPIUM PO PRN (08:25)
[2019-10-06] MEDS ORDERED: [UNRECOGNIZED DRUG - OTHER] PO PRN (08:25)
[2019-10-06 09:50] LABS: HEMATOCRIT 33.6 % (37.9-51.0); HEMOGLOBIN 11.3 g/dL (13.5-17.0); MEAN CORPUSCULAR HEMOGLOBIN 32.3 pg (27.0-33.4); MEAN CORPUSCULAR HGB CONC 33.5 g/dL (32.0-36.0); MEAN CORPUSCULAR VOLUME 97 fl (80-97); RED BLOOD COUNT 3.48 10^6/uL (4.35-5.55); RED CELL DISTRIBUTION WIDTH 16.1 % (11.5-14.0); WHITE BLOOD COUNT 12.5 10^3/uL (4.0-10.5)
[2019-10-06 10:08] LABS: BLOOD UREA NITROGEN 22 mg/dL (7-20); CALCIUM 8.1 mg/dL (8.4-10.2); CARBON DIOXIDE 29 mmol/L (22-30); CHLORIDE 96 mmol/L (98-107); GLUCOSE 85 mg/dL (75-110); POTASSIUM 4.4 mmol/L (3.6-5.0)
[2019-10-06] MEDS ORDERED: IPRATROPIUM/ALBUTEROL 0.5-2.5 MG/3 ML AMPUL NEB PRN (10:09)
[2019-10-06 10:14] LABS: ANION GAP 4 (5-19)
[2019-10-06 10:25] LABS: PLATELET COUNT 59 10^3/uL (150-450)
[2019-10-06] MEDS: FERROUS SULFATE 325 MG TABLET PO SCH (10:53)
[2019-10-06] MEDS: LOSARTAN POTASSIUM 50 MG TABLET PO SCH (10:53)
[2019-10-06] MEDS: FLUTICASONE/VILANTEROL 200-25 MCG/DOSE IH SCH (15:38)
[2019-10-06] MEDS ORDERED: NORMAL SALINE 1000 ML 1,000 ML IV PRN (18:00)
--- NOTE | 2019-10-06 18:05 | PDOC PROGRESS REPORT ---
Subjective Progress Note for:: 10/06/19 Reason For Visit: END-STAGE PULMONARY FIBROSIS, CHRONIC HYPOXEMIC Physical Exam Vital Signs: Temp Pulse Resp BP Pulse Ox 98.3 F 100 16 120/72 100 10/06/19 15:23 10/06/19 15:23 10/06/19 15:23 10/06/19 15:23 10/06/19 15:23 Intake & Output 10/05/19 10/06/19 10/07/19 06:59 06:59 06:59 Output Total 425 Balance -425 Weight 73.1 kg General appearance: PRESENT: no acute distress, cooperative, well-developed, well-nourished, other - Frail, chronically ill-appearing Head exam: PRESENT: atraumatic, normocephalic Eye exam: PRESENT: conjunctiva pink, EOMI, PERRLA. ABSENT: scleral icterus Mouth exam: PRESENT: moist, tongue midline Teeth exam: PRESENT: poor dentation Respiratory exam: PRESENT: clear to auscultation aga, decreased breath sounds - Throughout, symmetrical, unlabored, other - Supplemental oxygen. ABSENT: rales, rhonchi, wheezes Cardiovascular exam: PRESENT: RRR. ABSENT: diastolic murmur, rubs, systolic murmur Vascular exam: PRESENT: normal capillary refill Extremities exam: PRESENT: full ROM. ABSENT: calf tenderness, clubbing, pedal edema Neurological exam: PRESENT: alert, awake, oriented to person, oriented to place, oriented to time, oriented to situation, CN II-XII grossly intact. ABSENT: mo tor sensory deficit Psychiatric exam: PRESENT: appropriate affect, normal mood. ABSENT: homicidal ideation, suicidal ideation Skin exam: PRESENT: dry, intact, warm. ABSENT: cyanosis, rash Results Laboratory Results: 10/06/19 09:02 10/06/19 09:02 10/06/19 10/06/19 09:02 09:02 WBC 12.5 H RBC 3.48 L Hgb 11.3 L Hct 33.6 L MCV 97 MCH 32.3 MCHC 33.5 RDW 16.1 H Plt Count 59 L Sodium 129.3 L Potassium 4.4 Chloride 96 L Carbon Dioxide 29 Anion Gap 4 L BUN 22 H Creatinine 0.85 Est GFR ( Amer) > 60 Glucose 85 Calcium 8.1 L 10/05/19 10:28 NT-Pro-B Natriuret Pep 7380 H Impressions: Chest X-Ray 10/05/19 10:05 IMPRESSION: Mild to moderate loculated right-sided effusion, minimally increased from prior. Trace left effusion. Central vascular congestion without overt edema. Chest/Abdomen CTA 10/05/19 12:34 IMPRESSION: No gross CT angio evidence of acute pulmonary embolus. Limited contrast bolus. No thoracic aortic dissection Bilateral pleural effusions right greater than left. Bibasilar probable atelectasis Assessment and Plan - Diagnosis (1) Chronic respiratory failure Qualifiers: Respiratory failure complication: hypoxia Qualified Code(s): J96.11 - Chronic respiratory failure with hypoxia Is this a current diagnosis for this admission?: Yes Plan: Unfortunately, at baseline Secondary to pulmonary asbestosis, COPD, aortic stenosis. Supplemental oxygen as needed to maintain saturations greater than 89%. Recommended to patient that he consider palliative care/hospice admission. Encourage patient to discuss this with his family members. Patient is medically stable for discharge to home; does remain severely weak with limited mobility due to air hunger. He does not desaturate while ambulating. He would be appropriate for LETTY/SNF long-term care. Continue home dose/schedule duo nebs. Continue home dose budesonide/formoterol. Continue home dose Breo. Discharge planning is consulted for disposition. (2) Aortic stenosis Qualifiers: Cardiac valve disease etiology: etiology unspecified Is this a current diagnosis for this admission?: Yes Plan: Avoid large volume fluid shifts. Continue home medication regiment of losartan and furosemide. Daily weights. (3) Pulmonary asbestosis Is this a current diagnosis for this admission?: Yes Plan: As above. - Time Time Spent with patient: 25-34 minutes Medications reviewed and adjusted accordingly: Yes Anticipated discharge: Other - Patient is appropriate for discharge; discharge planning consulted to arrange disposition (home with home health/palliative vs. [facility] vs. SNF/long-term care). Within: Other - Pending disposition
[2019-10-06] MEDS ORDERED: BUDESONIDE IH SCH (22:00)
[2019-10-06] MEDS ORDERED: ATORVASTATIN CALCIUM 20 MG TABLET PO SCH (22:00)
[2019-10-06] MEDS ORDERED: ATORVASTATIN CALCIUM 40 MG TABLET PO SCH (22:00)
[2019-10-06] MEDS ORDERED: FORMOTEROL FUMARATE IH SCH (22:00)
[2019-10-06] MEDS ORDERED: [UNRECOGNIZED DRUG - OTHER] IH SCH (22:00)
[2019-10-07] MEDS: HEPARIN SOD (PORCINE) 5,000 UNIT/ML 1 ML VIAL SUBCUT SCH ×3 (01:18→14:36)
[2019-10-07 05:33] LABS: HEMOGLOBIN 10.2 g/dL (13.5-17.0); MEAN CORPUSCULAR HEMOGLOBIN 32.8 pg (27.0-33.4); MEAN CORPUSCULAR VOLUME 96 fl (80-97); RED BLOOD COUNT 3.11 10^6/uL (4.35-5.55); RED CELL DISTRIBUTION WIDTH 15.4 % (11.5-14.0); WHITE BLOOD COUNT 9.9 10^3/uL (4.0-10.5)
[2019-10-07 05:40] LABS: BLOOD UREA NITROGEN 24 mg/dL (7-20); CALCIUM 7.8 mg/dL (8.4-10.2); CHLORIDE 98 mmol/L (98-107); GLUCOSE 85 mg/dL (75-110); POTASSIUM 4.1 mmol/L (3.6-5.0)
[2019-10-07 05:46] LABS: ANION GAP 3 (5-19); CARBON DIOXIDE 27 mmol/L (22-30)
[2019-10-07 05:52] LABS: PLATELET COUNT 56 10^3/uL (150-450)
[2019-10-07] MEDS ORDERED: FUROSEMIDE 20 MG TABLET PO SCH (08:00)
[2019-10-07] MEDS ORDERED: POTASSIUM CHLORIDE 10 MEQ TABLET.ER PO SCH (10:00)
[2019-10-07] MEDS ORDERED: FLUTICASONE/VILANTEROL 200-25 MCG/DOSE IH SCH (10:00)
[2019-10-07] MEDS: LOSARTAN POTASSIUM 50 MG TABLET PO SCH (10:22)
[2019-10-07] MEDS: FERROUS SULFATE 325 MG TABLET PO SCH (10:22)
[2019-10-07] MEDS: FLUTICASONE/VILANTEROL 200-25 MCG/DOSE IH SCH (10:23)
--- NOTE | 2019-10-07 15:08 | PDOC DISCHARGE SUMMARY ---
Impression - Admit/DC Date/PCP Admission Date/Primary Care Provider: 10/05/19 14:19 [facility] Discharge Date: 10/07/19 - Discharge Diagnosis (1) Chronic respiratory failure Is this a current diagnosis for this admission?: Yes (2) Aortic stenosis Is this a current diagnosis for this admission?: Yes (3) Pulmonary asbestosis Is this a current diagnosis for this admission?: Yes - Additional Information Discharge Diet: Regular Discharge Activity: Activity As Tolerated, Balance Activity w/Rest, Slowly Increase Activity Referrals: [facility] [Primary Care Provider] - Follow up as needed (The patient will make his own follow-up appointment.) Home Medications: Acetaminophen [Tylenol 325 mg Tablet] 650 mg PO Q8HP PRN 10/06/19 Albuterol Sulfate [Albuterol Sulfate Hfa] 2 puff IH QIDP PRN 10/06/19 Atorvastatin Calcium [Lipitor 40 mg Tablet] 40 mg PO QHS 10/06/19 Budesonide/Formoterol Fumarate [Budesonide-Formoterol 160-4.5] 10.2 gm IH Q12 10/06/19 Furosemide [Lasix 20 mg Tablet] 20 mg PO QAM 10/06/19 Potassium Chloride 20 meq PO DAILY 10/06/19 Losartan Potassium [Cozaar 50 mg Tablet] 100 mg PO DAILY tablet 10/07/19 History of Present Illiness History of Present Illness: Per H&P by Dr. Bernardo: TERESA MUNOZ is a 83 year old male with end-stage pulmonary fibrosis and chronic hypoxemic respiratory failure who somehow managed to go home a couple of days ago without home oxygen. Apparently he wanted to go to assisted living but did not want to have to pay for it, which is not how it works. He therefore went home instead without home oxygen or any home assistance, when he can get up and walk more than a few feet without getting severely short of breath. He called EMS because he was in the same shape at home and could not perform any of his ADLs. He has had no deterioration in his clinical condition since he left, he is just no better off than whenever he first came in. Hospital Course Hospital Course: (1) Chronic respiratory failure Unfortunately, at baseline Secondary to pulmonary asbestosis, COPD, aortic stenosis. Supplemental oxygen as needed to maintain saturations greater than 89%. Continue home dose/schedule duo nebs. Continue home dose budesonide/formoterol. Continue home dose Breo. Discussed with patient again today, prior to discharge, recommendations for [facility] or SNF placement for long-term care. Also advised recommendation for palliative care with hospice bridge. At this time, patient declines both and request to be discharged to home. He is agreeable to home health services. Fortunately, this admission, patient does qualify for home O2. Encourage patient to discuss LTC options and Palliative/Hospice referral with his family members. (2) Aortic stenosis Avoid large volume fluid shifts. Continue home medication regiment of losartan and furosemide. Daily weights. (3) Pulmonary asbestosis Is this a current diagnosis for this admission?: Yes Plan: As above. Physical Exam Vital Signs: Temp Pulse Resp BP Pulse Ox 100.6 F H 90 24 H 106/48 L 94 10/07/19 12:42 10/07/19 12:42 10/07/19 12:42 10/07/19 12:42 10/07/19 12:42 Intake & Output 10/06/19 10/07/19 10/08/19 06:59 06:59 06:59 Intake Total 597 400 Output Total 425 1100 325 Balance -425 -503 75 Weight 73.1 kg 74.2 kg General appearance: PRESENT: no acute distress, well-developed, well-nourished, other - Frail, chronically ill-appearing Head exam: PRESENT: atraumatic, normocephalic Eye exam: PRESENT: conjunctiva pink, EOMI, PERRLA. ABSENT: scleral icterus Mouth exam: PRESENT: moist, tongue midline Teeth exam: PRESENT: poor dentation Respiratory exam: PRESENT: clear to auscultation aga, decreased breath sounds - throughout, symmetrical, tachypnea - shallow, other - Supplemental oxygen by nasal cannula. ABSENT: rales, rhonchi, wheezes Cardiovascular exam: PRESENT: RRR. ABSENT: diastolic murmur, rubs, systolic murmur Pulses: PRESENT: normal dorsalis pedis pul Vascular exam: PRESENT: normal capillary refill Extremities exam: PRESENT: full ROM. ABSENT: calf tenderness, clubbing, pedal edema Musculoskeletal exam: PRESENT: ambulatory Neurological exam: PRESENT: alert, awake, oriented to person, oriented to place, oriented to time, oriented to situation, CN II-XII grossly intact. ABSENT: motor sensory deficit Psychiatric exam: PRESENT: appropriate affect, normal mood. ABSENT: homicidal ideation, suicidal ideation Skin exam: PRESENT: dry, intact, warm. ABSENT: cyanosis, rash Results Laboratory Results: WBC 9.9 10^3/uL (4.0-10.5) 10/07/19 04:11 RBC 3.11 10^6/uL (4.35-5.55) L 10/07/19 04:11 Hgb 10.2 g/dL (13.5-17.0) L 10/07/19 04:11 Hct 30.0 % (37.9-51.0) L 10/07/19 04:11 MCV 96 fl (80-97) 10/07/19 04:11 MCH 32.8 pg (27.0-33.4) 10/07/19 04:11 MCHC 34.0 g/dL (32.0-36.0) 10/07/19 04:11 RDW 15.4 % (11.5-14.0) H 10/07/19 04:11 Plt Count 56 10^3/uL (150-450) L 10/07/19 04:11 Lymph % (Auto) Not Reportable 10/05/19 12:43 Norman % (Auto) Not Reportable 10/05/19 12:43 Eos % (Auto) Not Reportable 10/05/19 12:43 Baso % (Auto) Not Reportable 10/05/19 12:43 Absolute Neuts (auto) Not Reportable 10/05/19 12:43 Absolute Lymphs (auto) Not Reportable 10/05/19 12:43 Absolute Monos (auto) Not Reportable 10/05/19 12:43 Absolute Eos (auto) Not Reportable 10/05/19 12:43 Absolute Basos (auto) Not Reportable 10/05/19 12:43 Total Counted 100 10/05/19 12:43 Seg Neutrophils % Not Reportable 10/05/19 12:43 Seg Neuts % (Manual) 93 % (42-78) H 10/05/19 12:43 Lymphocytes % (Manual) 2 % (13-45) L 10/05/19 12:43 Monocytes % (Manual) 5 % (3-13) 10/05/19 12:43 Eosinophils % (Manual) 0 % (0-6) 10/05/19 12:43 Basophils % (Manual) 0 % (0-2) 10/05/19 12:43 Abs Neuts (Manual) 14.2 10^3/uL (1.7-8.2) H 10/05/19 12:43 Abs Lymphs (Manual) 0.3 10^3/uL (0.5-4.7) L 10/05/19 12:43 Abs Monocytes (Manual) 0.8 10^3/uL (0.1-1.4) 10/05/19 12:43 Absolute Eos (Manual) 0.0 10^3/uL (0.0-0.6) 10/05/19 12:43 Abs Basophils (Manual) 0.0 10^3/uL (0.0-0.2) 10/05/19 12:43 Platelet Estimate Cancelled 10/05/19 10:28 Platelet Comment DECREASED 10/05/19 12:43 Poikilocytosis 2+ 10/05/19 12:43 Anisocytosis 1+ 10/05/19 12:43 Macrocytosis SLIGHT 10/05/19 12:43 Ovalocytes SLIGHT 10/05/19 12:43 Acanthocytes (Spur) 2+ 10/05/19 12:43 Sodium 127.8 mmol/L (137-145) L 10/07/19 04:11 Potassium 4.1 mmol/L (3.6-5.0) 10/07/19 04:11 Chloride 98 mmol/L (98-107) 10/07/19 04:11 Carbon Dioxide 27 mmol/L (22-30) 10/07/19 04:11 Anion Gap 3 (5-19) L 10/07/19 04:11 BUN 24 mg/dL (7-20) H 10/07/19 04:11 Creatinine 0.89 mg/dL (0.52-1.25) 10/07/19 04:11 Est GFR ( Amer) > 60 (>60) 10/07/19 04:11 Est GFR (MDRD) Non-Af > 60 (>60) 10/07/19 04:11 Glucose 85 mg/dL (75-110) 10/07/19 04:11 Calcium 7.8 mg/dL (8.4-10.2) L 10/07/19 04:11 Total Bilirubin 2.3 mg/dL (0.2-1.3) H 10/05/19 10:28 Direct Bilirubin 0.0 mg/dL (0.0-0.4) 10/05/19 10:28 Neonat Total Bilirubin Not Reportable 10/05/19 10:28 Neonat Direct Bilirubin Not Reportable 10/05/19 10:28 Neonat Indirect Bili Not Reportable 10/05/19 10:28 AST 33 U/L (17-59) 10/05/19 10:28 ALT 21 U/L (<50) 10/05/19 10:28 Alkaline Phosphatase 64 U/L (38-126) 10/05/19 10:28 NT-Pro-B Natriuret Pep 7380 pg/mL (<450) H 10/05/19 10:28 Total Protein 7.0 g/dL (6.3-8.2) 10/05/19 10:28 Albumin 3.7 g/dL (3.5-5.0) 10/05/19 10:28 COVID-19 Source NASOPHARYNGEAL 10/05/19 11:13 COVID-19 ([place]) NOT DETECTED 10/05/19 11:13 Slides for Path Review Cancelled 10/05/19 10:28 10/05/19 10:28 NT-Pro-B Natriuret Pep 7380 H Impressions: Chest X-Ray 10/05/19 10:05 IMPRESSION: Mild to moderate loculated right-sided effusion, minimally increased from prior. Trace left effusion. Central vascular congestion without overt edema. Chest/Abdomen CTA 10/05/19 12:34 IMPRESSION: No gross CT angio evidence of acute pulmonary embolus. Limited c ontrast bolus. No thoracic aortic dissection Bilateral pleural effusions right greater than left. Bibasilar probable atelectasis Plan Plan of Treatment: Patient is discharged home in fair, but stable, condition with home health nursing, PT/OT, aide, and addiction social worker services. Arrangements were made for the patient to receive home O2. Multiple discussions had with the patient regarding recommendation for long-term placement in LETTY or SNF versus home with home health services and palliative consultation. Patient declines placement at this time; requests discharge to home. He is advised to follow up with his PCP within 1 week. He is also encouraged to return to the emergence department as needed for concerning symptoms. Time Spent: Greater than 30 Minutes Stroke Is this a Stroke Patient?: No Acute Heart Failure - Is this a Heart Failure Patient?: No
[2019-10-07 18:49] VITALS: BP 125/77
== END 2019-10-07 18:20 | disposition home health service (06) ==
LOC: ER 09:55 → EH 14:19 → 3N 16:35
PROVIDERS: ADMIT Family Medicine; ATTEND Registered Nurse
DX: J96.11 Chronic respiratory failure with hypoxia (principal); I35.0 Nonrheumatic aortic (valve) stenosis; J61 Pneumoconiosis due to asbestos and other mineral fibers; I25.10 Atherosclerotic heart disease of native coronary artery without angina pectoris; I11.0 Hypertensive heart disease with heart failure; I50.9 Heart failure, unspecified; F17.200 Nicotine dependence, unspecified, uncomplicated; Z74.09 Other reduced mobility; Z79.899 Other long term (current) drug therapy; Z86.718 Personal history of other venous thrombosis and embolism; Z20.828 Contact with and (suspected) exposure to other viral communicable diseases; Z79.51 Long term (current) use of inhaled steroids
CPT/HCPCS: 93005; 99285; 36415 ×3; 85025; 85027 ×2; 87635; 80048 ×2; 80053; 83880; 71045; 71275; 93010; 94640; J3490; J7030; C9803